=== PATIENT | female | born 1935 | race Caucasian/White ===

== ENCOUNTER 2018-06-11 16:29 | Emergency (ER) | payer MEDICARE, OTHER ==
--- NOTE | 2018-06-11 17:02 | ED Physician Chart ---
ED Chief Complaint/HPI - Patient Information Chief Complaint:: Abnormal labs, sent for high K. Allergies:: Allergies Allergy/AdvReac Type Severity Reaction Status Date / Time No Known Allergies Allergy Verified 06/11/18 16:41 Historian:: EMS (Patient is unreliable historian.), Medical Records Review:: Nurse's Note Reviewed <Taz Virk Last Filed: 06/12/18 20:18> - Patient Information Date Seen:: 06/11/18 Time Seen:: 17:01 Chief Complaint:: Abnormal labs History of Present Illness:: 83 yo female was brought from [facility] to ER for evaluation of abnormal lab result ( K 5.5). Allergies:: Allergies Allergy/AdvReac Type Severity Reaction Status Date / Time No Known Allergies Allergy Verified 06/11/18 16:41 Vitals:: Vital Signs - 8 hr 06/11/18 16:42 Temp 98.2 F HR 66 RR 18 BP 128/69 O2 Sat % 100 <Dash Vargas - Last Filed: 06/12/18 22:06> ED Review of Systems - Review of Systems General/Constitutional: No edema Skin: No skin lesions ENT: No nasal drainage Neck: No mass noted Cardio Vascular: No edema Pulmonary: No wheezing GI: No vomiting Psychiatric: Prior psych history Neurological: No seizure <Taz Virk Last Filed: 06/12/18 20:18> ED Past Medical History - Past Medical History Obtainable: Yes (Poor historian) Past Medical History: Other (hx of atrial fib) Family History: Heart disease Social History: Care Facility Psychiatricy History: Other (Aggression, past psychiatric illness) <Taz Virk Last Filed: 06/12/18 20:18> Family Medical History - Family Member Mother History Unknown: Yes <Taz Virk Last Filed: 06/12/18 20:18> - Family Member Mother History Unknown: Yes <Dash Vargas Last Filed: 06/12/18 22:06> ED Physical Exam - Physical Examination General/Constitutional: Awake Head: Atraumatic Eyes: Lids, conjuctiva normal Skin: Nl inspection ENMT: External ears, nose nl Neck: Nontender Respiratory: Nl effort/Exclusion Cardio Vascular: RRR : No CVA tenderness Extremities: No tenderness or effusion Misc: Normal back <Taz Virk - Last Filed: 06/12/18 20:18> ED Labs/Radiology/EKG Results - Lab Results Results: Laboratory Tests 06/11/18 06/11/18 06/11/18 18:00 18:00 18:00 WBC 8.3 RBC 3.41 L Hgb 10.6 L Hct 32.0 L MCV 93.8 MCH 31.1 H MCHC Differential 33.1 RDW 12.6 Plt Count 356 MPV 7.5 Neutrophils % 40.1 Lymphocytes % 45.8 Monocytes % 8.8 Eosinophils % 5.3 H Basophils % 0.0 PT INR PTT (Actin FS) Sodium 136 Potassium 4.8 Chloride 106 Carbon Dioxide 23.0 Anion Gap 11.8 BUN 32 H Creatinine 1.2 Est GFR ( Amer) TNP Est GFR (Non-Af Amer) TNP BUN/Creatinine Ratio 26.7 Glucose 83 Calcium 9.2 Total Bilirubin 0.4 AST 15 ALT 16 Alkaline Phosphatase 65 Troponin I B-Natriuretic Peptide 64.5 Total Protein 6.8 Albumin 3.8 Globulin 3.0 Albumin/Globulin Ratio 1.3 06/11/18 06/11/18 18:00 18:00 WBC RBC Hgb Hct MCV MCH MCHC Differential RDW Plt Count MPV Neutrophils % Lymphocytes % Monocytes % Eosinophils % Basophils % PT 23.7 H INR 2.19 H PTT (Actin FS) 33.4 Sodium Potassium Chloride Carbon Dioxide Anion Gap BUN Creatinine Est GFR ( Amer) Est GFR (Non-Af Amer) BUN/Creatinine Ratio Glucose Calcium Total Bilirubin AST ALT Alkaline Phosphatase Troponin I < 0.01 L B-Natriuretic Peptide Total Protein Albumin Globulin Albumin/Globulin Ratio <Taz Virk - Last Filed: 06/12/18 20:18> - EKG Interpretations EKG Time:: 17:15 Rate & Rhythm: 60 bpm, sinus rhythm [place]: normal axis Intervals: CO 144, QRS 98 Comments:: Normal EKG <Dash Vargas - Last Filed: 06/12/18 22:06> ED Assessment - Assessment General Assessment: Sent to ER for elevated K. Repeat BMP indicated K 4.8. Discussed case with PMD, agreed to return patient to skilled care facility. Notified patient's family of findings. This condition life threatening/high prob of deterioration: No <Taz Virk - Last Filed: 07/28/18 20:18> ED Septic Shock - . Is Septic Shock (SBP<90, OR Lactate>4 mmol\L) present?: No <Taz Virk - Last Filed: 06/12/18 20:18> - . Is Septic Shock (SBP<90, OR Lactate>4 mmol\L) present?: No - <6hrs of presentation: Vital Signs: Vital Signs - 8 hr 06/11/18 16:42 Temp 98.2 F HR 66 RR 18 BP 128/69 O2 Sat % 100 <Dash Vargas - Last Filed: 06/12/18 22:06> ED Reassessment (Disposition) - Reassessment Reassessment:: Electrolyte abnormality corrected. Reassessment Condition:: Improved - Diagnosis Diagnosis:: Elevated K, corrected. - Aftercare/Follow up Instructions Aftercare/Follow-Up Instructions:: Refer to Discharge Instructions, Counseled pt & family regarding lab results/diagnosis & need follow up - Patient Disposition Discharge/Transfer:: [facility] - SNF <Taz Virk - Last Filed: 06/12/18 20:18>
[2018-06-11 18:05] LABS: % EOSINOPHILS 5.3 % (0.0-5.0); % LYMPHOCYTES 45.8 % (20.0-50.0); % MONOCYTES 8.8 % (2.0-10.0); % NEUTROPHILS 40.1 % (40.0-80.0); EOSINOPHILE ABSOLUTE 0.4 Th/cmm (0.1-0.4); HEMOGLOBIN 10.6 gm/dL (12-16); LYMPHOCYTE ABSOLUTE 3.9 Th/cmm (1.5-3.0); MEAN CELL VOLUME 93.8 fl (81-100); MEAN CORPUSCULAR HEMOGLOBIN 31.1 pg (27.0-31.0); MEAN CORPUSCULAR HGB CONC 33.1 pg (28.0-36.0); MEAN PLATELET VOLUME 7.5 fl; MONOCYTE ABSOLUTE 0.7 Th/cmm (0.3-1.0); NEUTROPHILE ABSOLUTE 3.3 Th/cmm (1.8-8.0); PLATELET COUNT 356 Th/cmm (150-400); RED BLOOD COUNT 3.41 Mil/cmm (3.80-5.20); RED CELL DISTRIBUTION WIDTH 12.6 % (11.5-20.0); WHITE BLOOD COUNT 8.3 Th/cmm (4.8-10.8)
[2018-06-11 18:28] LABS: INR 2.19 (0.5-1.4); PROTHROMBIN TIME (TEST) 23.7 SECONDS (9.5-11.5)
[2018-06-11 18:38] LABS: ALB/GLOB RATIO 1.3 (1.0-1.8); ALBUMIN 3.8 gm/dL (3.7-5.3); ALKALINE PHOSPHATASE 65 U/L (34-104); ANION GAP 11.8 (7.0-16.0); BILIRUBIN,TOTAL 0.4 mg/dL (0.3-1.0); BUN - UREA NITROGEN 32 mg/dL (7-25); CALCIUM SERUM 9.2 mg/dL (8.6-10.3); CHLORIDE 106 mEq/L (98-107); CREATININE - SERUM 1.2 mg/dL (0.6-1.2); GLUCOSE 83 mg/dL (70-105); POTASSIUM SERUM 4.8 mEq/L (3.5-5.1); SGOT 15 U/L (13-39); SGPT/ALT 16 U/L (7-52); SODIUM SERUM 136 mEq/L (136-145); TOTAL PROTEIN,SERUM 6.8 gm/dL (6.0-8.3)
--- NOTE | 2018-06-12 09:27 | Diagnostic Imaging Report ---
Portable chest x-ray HISTORY: Shortness of breath The heart size appears generous. Atherosclerotic calcification seen in the aorta. No acute focal pulmonary processes. IMPRESSION: 1. No acute focal pulmonary processes 2. Generous heart size with atherosclerotic vascular changes
== END 2018-06-11 21:17 | disposition home or self-care (01) ==
LOC: ER 16:29
DX: E87.5 Hyperkalemia (principal); I48.91 Unspecified atrial fibrillation; Z79.01 Long term (current) use of anticoagulants
CPT/HCPCS: 36415-UA; 71045-TC; 80053-TC; 83880-TC; 84484-TC; 85025-TC; 85610-TC; 93005

== ENCOUNTER 2019-06-23 15:00 | Inpatient (IN) | payer MEDICARE, OTHER ==
[2019-06-23 16:11] VITALS: BP 150/44
[2019-06-23] MEDS ORDERED: Maalox 30 mL Cup PO PRN (16:31)
[2019-06-23] MEDS ORDERED: Magnesium Hydroxide (MOM) 30 mL UDC PO PRN (16:31)
[2019-06-23] MEDS ORDERED: CEPHALEXIN 250 MG PO SCH (18:00)
--- NOTE | 2019-06-23 18:15 | History & Physical ---
ADMIT DATE: CHIEF COMPLAINT: Psychosis. HISTORY OF PRESENT ILLNESS: The patient is an 84-year-old female with long history of hypertension, hypothyroidism, degenerative joint disease, psychosis, admitted to [facility] under Dr. Blas's service. The patient denies any chest pain, shortness of breath, nausea, vomiting, fever or chills. PAST MEDICAL HISTORY: Significant for hypertension, hypothyroidism, degenerative joint disease and psychosis. PAST SURGICAL HISTORY: No recent surgery. ALLERGIES: None. MEDICATIONS: Follow admission reconciliation. SOCIAL HISTORY: No smoking, no alcohol, no drug. FAMILY HISTORY: Noncontributory. REVIEW OF SYSTEMS: RENAL SYSTEM: No history of chronic renal disorder. CARDIOVASCULAR SYSTEM: No coronary artery disease. ENDOCRINE SYSTEM: History of hypothyroidism. GASTROINTESTINAL SYSTEM: No upper or lower GI bleed. NEUROLOGICAL SYSTEM: No seizure disorder. SKELETOMUSCULAR SYSTEM: No muscular dystrophy. HEMATOLOGIC SYSTEM: No bleeding tendencies. RESPIRATORY SYSTEM: No asthma. GENITOURINARY SYSTEM: No dysuria or hematuria. PHYSICAL EXAMINATION: GENERAL: She is awake, alert, confused. VITAL SIGNS: Temperature 97, heart rate 86, blood pressure 134/70. HEENT: Her pupils reactive to light and accommodation. Sclerae clear. NECK: Supple. Negative for lymphadenopathy, JVD or bruit. CHEST: Bilaterally normal. No rhonchi or wheezing. HEART: S1, S2 normal. No gallop rhythm. ABDOMEN: Soft, bowel sounds positive. EXTREMITIES: No edema. SKIN: Intact. NEUROLOGICAL: She is awake, alert, mildly confused. No focal muscle deficits. Cranial nerves 2-12 are intact. ASSESSMENT: 1. Hypertension. 2. Hypothyroidism. 3. Degenerative joint disease. 4. Psychosis. PLAN: The patient in the hospital under Dr. Blas's service. Medical problem addressed during hospitalization is psychosis. Medical problems to be addressed at discharge are hypertension and hypothyroidism. The patient is medically stable for activity. Thank you, Dr. Blas for asking me to see your patient. The patient is a full code. JOB# [id number]
[2019-06-24 05:45] LABS: ALB/GLOB RATIO 1.1 (1.0-1.8); ALBUMIN 3.4 gm/dL (3.7-5.3); ALKALINE PHOSPHATASE 43 U/L (34-104); ANION GAP 10.4 (7.0-16.0); BILIRUBIN,TOTAL 0.5 mg/dL (0.3-1.0); BUN - UREA NITROGEN 7 mg/dL (7-25); CARBON DIOXIDE 27.3 mEq/L (21.0-31.0); CHLORIDE 106 mEq/L (98-107); CREATININE - SERUM 0.8 mg/dL (0.6-1.2); GLUCOSE 90 mg/dL (70-105); POTASSIUM SERUM 3.7 mEq/L (3.5-5.1); SGOT 17 U/L (13-39); SGPT/ALT 15 U/L (7-52); SODIUM SERUM 140 mEq/L (136-145); TOTAL PROTEIN,SERUM 6.4 gm/dL (6.0-8.3)
[2019-06-24 05:50] LABS: % EOSINOPHILS 3.5 % (0.0-5.0); % LYMPHOCYTES 32.6 % (20.0-50.0); % MONOCYTES 6.9 % (2.0-10.0); BASOPHILE ABSOLUTE 0.2 Th/cumm (0-0.2); EOSINOPHILE ABSOLUTE 0.2 Th/cmm (0.1-0.4); HEMATOCRIT 33.9 % (41.0-60); HEMOGLOBIN 11.3 gm/dL (12-16); LYMPHOCYTE ABSOLUTE 2.2 Th/cmm (1.5-3.0); MEAN CORPUSCULAR HEMOGLOBIN 31.3 pg (27.0-31.0); MEAN CORPUSCULAR HGB CONC 33.3 pg (28.0-36.0); MONOCYTE ABSOLUTE 0.5 Th/cmm (0.3-1.0); NEUTROPHILE ABSOLUTE 3.8 Th/cmm (1.8-8.0); PLATELET COUNT 374 Th/cmm (150-400); RED CELL DISTRIBUTION WIDTH 12.6 % (11.5-20.0); WHITE BLOOD COUNT 6.9 Th/cmm (4.8-10.8)
[2019-06-24 06:01] LABS: CHOLESTEROL 117 mg/dL (<200); HDL -HIGH DENSITY LIPOPROTEIN 37 mg/dL (23-92); TRIGLYCERIDES 78 mg/dL (<150)
[2019-06-24] MEDS: Levothyroxine 0.075 Mg Tab PO SCH (06:36)
[2019-06-24] MEDS: Multivitamin Tab PO SCH (08:58)
[2019-06-24] MEDS: Pantoprazole 40 mg EC Tab PO SCH (08:59)
[2019-06-24] MEDS ORDERED: Probiotic Screen MC PRN (10:38)
--- NOTE | 2019-06-24 21:26 | Internal Medicine Prog Note ---
Internal Medicine Subjective - Subjective Service Date: 06/24/19 Patient seen and examined:: without staff Patient is:: awake, verbal, in bed, confused Per staff patient has:: no adverse event Internal Medicine Objective - Results Result Diagrams: 06/24/19 05:09 06/24/19 05:09 Recent Labs: Laboratory Last Values WBC 6.9 Th/cmm (4.8-10.8) 06/24/19 05:09 RBC 3.60 Mil/cmm (3.80-5.20) L 06/24/19 05:09 Hgb 11.3 gm/dL (12-16) L 06/24/19 05:09 Hct 33.9 % (41.0-60) L 06/24/19 05:09 MCV 94.0 fl (81-100) 06/24/19 05:09 MCH 31.3 pg (27.0-31.0) H 06/24/19 05:09 MCHC Differential 33.3 pg (28.0-36.0) 06/24/19 05:09 RDW 12.6 % (11.5-20.0) 06/24/19 05:09 Plt Count 374 Th/cmm (150-400) 06/24/19 05:09 MPV 7.8 fl 06/24/19 05:09 Neutrophils % 54.0 % (40.0-80.0) 06/24/19 05:09 Lymphocytes % 32.6 % (20.0-50.0) 06/24/19 05:09 Monocytes % 6.9 % (2.0-10.0) 06/24/19 05:09 Eosinophils % 3.5 % (0.0-5.0) 06/24/19 05:09 Basophils % 3.0 % (0.0-2.0) H 06/24/19 05:09 Sodium 140 mEq/L (136-145) 06/24/19 05:09 Potassium 3.7 mEq/L (3.5-5.1) 06/24/19 05:09 Chloride 106 mEq/L (98-107) 06/24/19 05:09 Carbon Dioxide 27.3 mEq/L (21.0-31.0) 06/24/19 05:09 Anion Gap 10.4 (7.0-16.0) 06/24/19 05:09 BUN 7 mg/dL (7-25) 06/24/19 05:09 Creatinine 0.8 mg/dL (0.6-1.2) 06/24/19 05:09 Est GFR ( Amer) TNP 06/24/19 05:09 Est GFR (Non-Af Amer) TNP 06/24/19 05:09 BUN/Creatinine Ratio 8.8 06/24/19 05:09 Glucose 90 mg/dL (70-105) 06/24/19 05:09 Calcium 9.0 mg/dL (8.6-10.3) 06/24/19 05:09 Total Bilirubin 0.5 mg/dL (0.3-1.0) 06/24/19 05:09 AST 17 U/L (13-39) 06/24/19 05:09 ALT 15 U/L (7-52) 06/24/19 05:09 Alkaline Phosphatase 43 U/L (34-104) 06/24/19 05:09 Total Protein 6.4 gm/dL (6.0-8.3) 06/24/19 05:09 Albumin 3.4 gm/dL (3.7-5.3) L 06/24/19 05:09 Globulin 3.0 gm/dL 06/24/19 05:09 Albumin/Globulin Ratio 1.1 (1.0-1.8) 06/24/19 05:09 Triglycerides 78 mg/dL (<150) 06/24/19 05:09 Cholesterol 117 mg/dL (<200) 06/24/19 05:09 LDL Cholesterol Direct 67 mg/dL (75-193) L 06/24/19 05:09 HDL Cholesterol 37 mg/dL (23-92) 06/24/19 05:09 - Physical Exam Vitals and I&O: Vital Signs Temp 97 F 06/24/19 20:00 Pulse 80 06/24/19 20:00 Resp 18 06/24/19 20:00 BP 129/66 06/24/19 20:00 Pulse Ox 96 06/24/19 20:00 Intake & Output 06/24/19 06/24/19 06/25/19 06:59 18:59 06:59 Intake Total 200 1150 Balance 200 1150 Intake: Oral 200 1150 Other: # Voids 1 Active Medications: Current Medications Acetaminophen (Tylenol) 650 mg PO Q4HR PRN PRN Reason: Mild Pain / Temp above 100 Stop: 08/22/19 16:30 Al Hydrox/Mg Hydrox/Simethicone (Maalox) 30 ml PO Q4HR PRN PRN Reason: GI DISTRESS Stop: 08/22/19 16:30 Amlodipine Besylate (Norvasc) 5 mg PO DAILY [facility]ISHA Stop: 08/23/19 08:59 Last Admin: 06/24/19 08:58 Dose: 5 mg Cephalexin Monohydrate (Keflex) 250 mg PO Q6HR MISHA Stop: 07/01/19 00:00 Last Admin: 06/24/19 18:50 Dose: 250 mg Donepezil HCl (Aricept) 5 mg PO HS MISHA Stop: 08/22/19 20:59 Last Admin: 06/24/19 20:37 Dose: 5 mg Lactobacillus Rhamnosus (Culturelle 15b) 1 each PO DAILY [facility] Stop: 08/24/19 08:59 Levothyroxine Sodium (Synthroid) 0.075 mg PO 0700 [facility] Stop: 08/23/19 06:59 Last Admin: 06/24/19 06:36 Dose: 0.075 mg Lorazepam (Ativan) 0.5 mg PO Q4HR PRN; Protocol PRN Reason: Agitation Stop: 07/23/19 16:30 Magnesium Hydroxide (Milk Of Magnesia) 30 ml PO HS PRN PRN Reason: Constipation Miscellaneous (Probiotic Screen) 1 ea [facility] PRN PRN PRN Reason: PROTOCOL Stop: 08/23/19 10:37 Multivitamins/Vitamin C (Theragran) 1 tab PO DAILY [facility] Stop: 08/23/19 08:59 Last Admin: 06/24/19 08:58 Dose: 1 tab Pantoprazole Sodium (Protonix) 40 mg PO QAM [facility]IS[facility] Stop: 08/23/19 08:59 Last Admin: 06/24/19 08:59 Dose: 40 mg Quetiapine Fumarate (Seroquel) 25 mg PO BID MISHA; Protocol Stop: 08/23/19 08:59 Last Admin: 06/24/19 17:07 Dose: 25 mg Zolpidem Tartrate (Ambien) 5 mg PO HS PRN PRN Reason: Insomnia Stop: 10/07/19 16:30 General: demented HEENT: NC/AT, PERRLA, EOMI, anicteric sclerae, throat clear Neck: Supple, No JVD, No thyromegaly, +2 carotid pulse wo bruit, No LAD, + JVD Lungs: CTAB Cardiovascular: RRR, Normal S1, Normal S2, without murmur Abdomen: non-tender, non-distended Extremities: clear Neurological: no change - Procedures Procedures: Procedures Procedure Code Date OTHER GROUP THERAPY 94.44 04/02/12 RECREATIONAL THERAPY 93.81 04/02/12 Internal Medicine Assmt/Plan - Assessment Assessment: 1.HTN. 2.HYPOTHYROIDISM 3.DJD. 4.PSYCHOSIS - Plan Plan: CONTINUE ON CURRENT MEDICATION AND DIET
[2019-06-25] MEDS: Levothyroxine 0.075 Mg Tab PO SCH (06:36)
[2019-06-25 08:10] LABS: A1C 4.5 % (4.8-5.6)
[2019-06-25] MEDS: Lactobacillus Rhamnosus GG 15 Billion CFU CAP.SPRINK PO SCH (10:09)
[2019-06-25] MEDS: Pantoprazole 40 mg EC Tab PO SCH (10:09)
[2019-06-25] MEDS: Multivitamin Tab PO SCH (10:09)
--- NOTE | 2019-06-25 10:10 | Psychiatric Evaluation ---
DATE OF SERVICE: 06/25/2019 PSYCHIATRIC INITIAL EVALUATION AND MENTAL STATUS EXAMINATION PATIENT'S AGE: 84. SEX: Female. PHYSICIAN: Dr. Blas. CHIEF COMPLAINT: Severe agitation and aggressive behavior. HISTORY OF PRESENT ILLNESS: The patient is an 84-year-old female who was transferred from [facility] to [facility] because of increased agitation and because of bizarre behavior. The patient also has been confused. The patient had also altered level of conscious for about 1-1/2 weeks prior to this admission. The patient has been acting bizarre and has been pouring water on foods and also spitting and biting people for no reason. The family has also been unable to control her behavior and her strange behavior and the patient was brought into the hospital. While in [facility], the patient was found to be dehydrated and also has urinary tract infection. The patient also while in [place] was irritable and was agitated. She also was not able to follow directions. Neuro consult on that the patient has dementia as well as encephalopathy and left hemiplegia with status of previous stroke. PAST PSYCHIATRIC HISTORY: The patient has history of dementia. PAST MEDICAL HISTORY: The patient has history of stroke as well as hypothyroidism, hypertension, left side hemiplegia and urinary tract infection. SOCIAL HISTORY: The patient was living at her home. No known alcohol or street drug use. ALLERGIES: No known allergies. CURRENT MEDICATIONS: Seroquel. MENTAL STATUS EXAMINATION: The patient appears her stated age. Anxious. Irritable mood. Easily agitated. Confused. Seems to be suspicious and paranoid. Thought processes are with poverty of speech and incoherent. The patient preoccupied and did not answer question regarding auditory or visual hallucinations, but seems to be paranoid and suspicious. The patient denied suicidal or homicidal ideations. The patient is alert and oriented to situation, but not to date or person or place. Impaired immediate and recent memory, but intact remote memory and she remembered her date. Poor insight and poor judgment. ASSESSMENT: PRIMARY DIAGNOSIS: Unspecified psychosis. SECONDARY DIAGNOSES: Dementia, moderate to severe, with psychotic features and behavioral disturbances. MEDICAL DIAGNOSES: Hypothyroidism, status post stroke with left-sided hemiplegia. TREATMENT PLAN: We will monitor the patient's behavior closely. We will adjust psychotropic medications and the dose of Seroquel. We will evaluate for further recommendations and behavioral issues. ESTIMATED LENGTH OF STAY: 5-7 days. PATIENT'S STRENGTHS AND WEAKNESSES: The patient's strength is not clear at this time. Weaknesses are ineffective coping and poor impulse control and confusion. AFTER DISCHARGE PLAN: Outpatient treatment and followup and the patient might need placement in detention for dementia patients. CRITERIA FOR DISCHARGE: Better impulse control and stabilizing psychotropic medications and establish outpatient treatment plans. [facility]# [id number]
--- NOTE | 2019-06-25 18:17 | Progress Notes ---
DATE: 06/25/2019 SUBJECTIVE: Chart was reviewed and the patient interviewed. Also discussed this patient's condition with the staff and reviewed records and labs. The patient is complaining of "can't swallow." The patient also said that she had a denture, but it does not fit. She also is still in irritable and angry mood at times and is easily agitated. She also still seems to be suspicious and paranoid. Otherwise, the patient is compliant with taking medications with no side effects of medications. ASSESSMENT: The patient is still agitated and is still psychotic and needs close monitoring. TREATMENT PLAN: Continue Seroquel same dose. Also, continue working on behavioral modification. Also, the patient is taking soft diet. Continue same dose and continue to follow up closely. [facility]# [id number]
--- NOTE | 2019-06-25 20:30 | Internal Medicine Prog Note ---
Internal Medicine Subjective - Subjective Service Date: 06/25/19 Patient seen and examined:: without staff (HE IS DOING BETTER) Patient is:: awake, verbal, in bed, confused Per staff patient has:: no adverse event Internal Medicine Objective - Results Result Diagrams: 06/24/19 05:09 06/24/19 05:09 Recent Labs: Laboratory Last Values WBC 6.9 Th/cmm (4.8-10.8) 06/24/19 05:09 RBC 3.60 Mil/cmm (3.80-5.20) L 06/24/19 05:09 Hgb 11.3 gm/dL (12-16) L 06/24/19 05:09 Hct 33.9 % (41.0-60) L 06/24/19 05:09 MCV 94.0 fl (81-100) 06/24/19 05:09 MCH 31.3 pg (27.0-31.0) H 06/24/19 05:09 MCHC Differential 33.3 pg (28.0-36.0) 06/24/19 05:09 RDW 12.6 % (11.5-20.0) 06/24/19 05:09 Plt Count 374 Th/cmm (150-400) 06/24/19 05:09 MPV 7.8 fl 06/24/19 05:09 Neutrophils % 54.0 % (40.0-80.0) 06/24/19 05:09 Lymphocytes % 32.6 % (20.0-50.0) 06/24/19 05:09 Monocytes % 6.9 % (2.0-10.0) 06/24/19 05:09 Eosinophils % 3.5 % (0.0-5.0) 06/24/19 05:09 Basophils % 3.0 % (0.0-2.0) H 06/24/19 05:09 Sodium 140 mEq/L (136-145) 06/24/19 05:09 Potassium 3.7 mEq/L (3.5-5.1) 06/24/19 05:09 Chloride 106 mEq/L (98-107) 06/24/19 05:09 Carbon Dioxide 27.3 mEq/L (21.0-31.0) 06/24/19 05:09 Anion Gap 10.4 (7.0-16.0) 06/24/19 05:09 BUN 7 mg/dL (7-25) 06/24/19 05:09 Creatinine 0.8 mg/dL (0.6-1.2) 06/24/19 05:09 Est GFR ( Amer) TNP 06/24/19 05:09 Est GFR (Non-Af Amer) TNP 06/24/19 05:09 BUN/Creatinine Ratio 8.8 06/24/19 05:09 Glucose 90 mg/dL (70-105) 06/24/19 05:09 Calcium 9.0 mg/dL (8.6-10.3) 06/24/19 05:09 Total Bilirubin 0.5 mg/dL (0.3-1.0) 06/24/19 05:09 AST 17 U/L (13-39) 06/24/19 05:09 ALT 15 U/L (7-52) 06/24/19 05:09 Alkaline Phosphatase 43 U/L (34-104) 06/24/19 05:09 Total Protein 6.4 gm/dL (6.0-8.3) 06/24/19 05:09 Albumin 3.4 gm/dL (3.7-5.3) L 06/24/19 05:09 Globulin 3.0 gm/dL 06/24/19 05:09 Albumin/Globulin Ratio 1.1 (1.0-1.8) 06/24/19 05:09 Triglycerides 78 mg/dL (<150) 06/24/19 05:09 Cholesterol 117 mg/dL (<200) 06/24/19 05:09 LDL Cholesterol Direct 67 mg/dL (75-193) L 06/24/19 05:09 HDL Cholesterol 37 mg/dL (23-92) 06/24/19 05:09 - Physical Exam Vitals and I&O: Vital Signs Temp 98.0 F 06/25/19 20:10 Pulse 108 06/25/19 20:10 Resp 19 06/25/19 20:10 BP 127/63 06/25/19 20:10 Pulse Ox 98 06/25/19 20:10 Intake & Output 06/25/19 06/25/19 06/26/19 06:59 18:59 06:59 Intake Total 100 1200 240 Balance 100 1200 240 Intake: Oral 100 1200 240 Other: # Voids 1 4 2 # Bowel Movements 1 Active Medications: Current Medications Acetaminophen (Tylenol) 650 mg PO Q4HR PRN PRN Reason: Mild Pain / Temp above 100 Stop: 08/22/19 16:30 Al Hydrox/Mg Hydrox/Simethicone (Maalox) 30 ml PO Q4HR PRN PRN Reason: GI DISTRESS Stop: 08/22/19 16:30 Amlodipine Besylate (Norvasc) 5 mg PO DAILY [facility] Stop: 08/23/19 08:59 Last Admin: 06/25/19 10:08 Dose: 5 mg Cephalexin Monohydrate (Keflex) 250 mg PO Q6HR [facility] Stop: 07/01/19 00:00 Last Admin: 06/25/19 17:23 Dose: Not Given Donepezil HCl (Aricept) 5 mg PO HS [facility] Stop: 08/22/19 20:59 Last Admin: 06/24/19 20:37 Dose: 5 mg Lactobacillus Rhamnosus (Culturelle 15b) 1 each PO DAILY [facility] Stop: 08/24/19 08:59 Last Admin: 06/25/19 10:09 Dose: 1 each Levothyroxine Sodium (Synthroid) 0.075 mg PO 0700 [facility] Stop: 08/23/19 06:59 Last Admin: 06/25/19 06:36 Dose: 0.075 mg Lorazepam (Ativan) 0.5 mg PO Q4HR PRN; Protocol PRN Reason: Agitation Stop: 07/23/19 16:30 Magnesium Hydroxide (Milk Of Magnesia) 30 ml PO HS PRN PRN Reason: Constipation Miscellaneous (Probiotic Screen) 1 ea MC PRN PRN PRN Reason: PROTOCOL Stop: 08/23/19 10:37 Multivitamins/Vitamin C (Theragran) 1 tab PO DAILY [facility] Stop: 08/23/19 08:59 Last Admin: 06/25/19 10:09 Dose: 1 tab Pantoprazole Sodium (Protonix) 40 mg PO QAM [facility] Stop: 08/23/19 08:59 Last Admin: 06/25/19 10:09 Dose: 40 mg Quetiapine Fumarate (Seroquel) 25 mg PO BID MISHA; Protocol Stop: 08/23/19 08:59 Last Admin: 06/25/19 17:23 Dose: Not Given Zolpidem Tartrate (Ambien) 5 mg PO HS PRN PRN Reason: Insomnia Stop: 08/22/19 16:30 General: demented HEENT: NC/AT, PERRLA, EOMI, anicteric sclerae, throat clear Neck: Supple, No JVD, No thyromegaly, +2 carotid pulse wo bruit, No LAD, + JVD Lungs: CTAB Cardiovascular: RRR, Normal S1, Normal S2, without murmur Abdomen: non-tender, non-distended Extremities: clear Neurological: no change - Procedures Procedures: Procedures Procedure Code Date OTHER GROUP THERAPY 94.44 04/02/12 RECREATIONAL THERAPY 93.81 04/02/12 Internal Medicine Assmt/Plan - Assessment Assessment: 1.HTN. 2.HYPOTHYROIDISM 3.DJD. 4.PSYCHOSIS - Plan Plan: CONTINUE ON CURRENT MEDICATION AND DIET Nutritional Asmnt/Malnutr-PDOC - Dietary Evaluation Malnutrition Findings (Please click <Entered> for more info): Nutritional Asmnt/Malnutrition Start: 06/25/19 10: 43 Text: Status: Active Freq: Protocol: Document 06/25/19 10:43 POLINA (Rec: 06/25/19 10:50 MMMICKIE AMIE- [email or web address]) Nutritional Asmnt/Malnutrition Patient General Information Nutritional Screening Moderate Risk Diagnosis Psychosis NOS Pertinent Medical Hx/Surgical Hx HTN, Hypothyroidism, degenerative joint disease, psychosis Subjective Information Patient was admitted from [facility]. Patient in bed eating lunch at time of visit . Tolerating well. Current Diet Order/ Nutrition Support Pureed Cardiac Pertinent Medications maalox, Culturelle, synthroid, MOM, Theragran, Protonix Pertinent Labs (06/24) Albumin 3.4 Nutritional Hx/Data Height 1.68 m Height (Calculated Centimeters) 167.6 Current Weight (lbs) 57.606 kg Weight (Calculated Kilograms) 57.6 Weight (Calculated Grams) 14018.2 [place] Body Weight 130 % [place] Body Weight 97 Body Mass Index (BMI) 20.5 Recent Weight Change No Weight Status Approriate GI Symptoms GI Symptoms None Last BM none noted Difficult in: None Food Allergies No Cultural/Ethnic/Restoration Belief none indicated Usual diet at home unknown Skin Integrity/Comment: Bhavin 15, Intact Current %PO Good (75-100%) Estimated Nutritional Goals BEE in Kcals: Using Current wt Calories/Kcals/Kg 25-30 kcal/kg using CBW 57.7kg Kcals Calculated ~7772-4307 kcal/day Protein: Using Current wt Protein g/k-1.2 gm/kg Protein Calculated ~60-70 gm/day Fluid: ml ~0428-6355 ml/day (1 ml/kcal) Nutritional Problem 1. Problem Problem No nutrition diagnosis at this time Intervention/Recommendation Comments Continue pureed cardiac diet as tolerated by patient. Assist with meals as needed. Expected Outcomes/Goals Expected Outcomes/Goals Oral intake >75% ofmeals, weight stable, nutrition related labs WNL, skin intact F/U LR 07/02
[2019-06-26] MEDS: Levothyroxine 0.075 Mg Tab PO SCH (06:24)
--- NOTE | 2019-06-26 08:38 | Progress Notes ---
DATE: 06/26/2019 SUBJECTIVE: Chart was reviewed and the patient interviewed. Also discussed the patient's condition with the staff and reviewed records and labs. The patient still has poor appetite and she is still on soft diet because of difficulty swallowing. The patient also is still angry and she is still in irritable mood and has severe mood swings. She also still needs a lot of redirections. Otherwise, the patient continued to comply with taking her medications. The patient is aggressive, especially during helping her with her ADLs. ASSESSMENT: The patient is still agitated and needs close monitoring. TREATMENT PLAN: Continue to monitor behavior and condition closely. Also, continue to work on her ineffective coping and follow up closely. [facility]# [id number]
[2019-06-26] MEDS: Multivitamin Tab PO SCH (08:58)
[2019-06-26] MEDS: Pantoprazole 40 mg EC Tab PO SCH (08:58)
[2019-06-26] MEDS: Lactobacillus Rhamnosus GG 15 Billion CFU CAP.SPRINK PO SCH (08:58)
--- NOTE | 2019-06-26 19:56 | Internal Medicine Prog Note ---
Internal Medicine Subjective - Subjective Service Date: 06/26/19 Patient seen and examined:: without staff (HE IS DOING WELL) Patient is:: awake, verbal, in bed, confused Per staff patient has:: no adverse event Internal Medicine Objective - Results Result Diagrams: 06/24/19 05:09 06/24/19 05:09 Recent Labs: Laboratory Last Values WBC 6.9 Th/cmm (4.8-10.8) 06/24/19 05:09 RBC 3.60 Mil/cmm (3.80-5.20) L 06/24/19 05:09 Hgb 11.3 gm/dL (12-16) L 06/24/19 05:09 Hct 33.9 % (41.0-60) L 06/24/19 05:09 MCV 94.0 fl (81-100) 06/24/19 05:09 MCH 31.3 pg (27.0-31.0) H 06/24/19 05:09 MCHC Differential 33.3 pg (28.0-36.0) 06/24/19 05:09 RDW 12.6 % (11.5-20.0) 06/24/19 05:09 Plt Count 374 Th/cmm (150-400) 06/24/19 05:09 MPV 7.8 fl 06/24/19 05:09 Neutrophils % 54.0 % (40.0-80.0) 06/24/19 05:09 Lymphocytes % 32.6 % (20.0-50.0) 06/24/19 05:09 Monocytes % 6.9 % (2.0-10.0) 06/24/19 05:09 Eosinophils % 3.5 % (0.0-5.0) 06/24/19 05:09 Basophils % 3.0 % (0.0-2.0) H 06/24/19 05:09 Sodium 140 mEq/L (136-145) 06/24/19 05:09 Potassium 3.7 mEq/L (3.5-5.1) 06/24/19 05:09 Chloride 106 mEq/L (98-107) 06/24/19 05:09 Carbon Dioxide 27.3 mEq/L (21.0-31.0) 06/24/19 05:09 Anion Gap 10.4 (7.0-16.0) 06/24/19 05:09 BUN 7 mg/dL (7-25) 06/24/19 05:09 Creatinine 0.8 mg/dL (0.6-1.2) 06/24/19 05:09 Est GFR ( Amer) TNP 06/24/19 05:09 Est GFR (Non-Af Amer) TNP 06/24/19 05:09 BUN/Creatinine Ratio 8.8 06/24/19 05:09 Glucose 90 mg/dL (70-105) 06/24/19 05:09 Calcium 9.0 mg/dL (8.6-10.3) 06/24/19 05:09 Total Bilirubin 0.5 mg/dL (0.3-1.0) 06/24/19 05:09 AST 17 U/L (13-39) 06/24/19 05:09 ALT 15 U/L (7-52) 06/24/19 05:09 Alkaline Phosphatase 43 U/L (34-104) 06/24/19 05:09 Total Protein 6.4 gm/dL (6.0-8.3) 06/24/19 05:09 Albumin 3.4 gm/dL (3.7-5.3) L 06/24/19 05:09 Globulin 3.0 gm/dL 06/24/19 05:09 Albumin/Globulin Ratio 1.1 (1.0-1.8) 06/24/19 05:09 Triglycerides 78 mg/dL (<150) 06/24/19 05:09 Cholesterol 117 mg/dL (<200) 06/24/19 05:09 LDL Cholesterol Direct 67 mg/dL (75-193) L 06/24/19 05:09 HDL Cholesterol 37 mg/dL (23-92) 06/24/19 05:09 - Physical Exam Vitals and I&O: Vital Signs Temp 97.6 F 06/26/19 13:50 Pulse 97 06/26/19 13:50 Resp 19 06/26/19 13:50 BP 121/62 06/26/19 13:50 Pulse Ox 90 06/26/19 04:56 Intake & Output 06/26/19 06/26/19 06/27/19 06:59 18:59 06:59 Intake Total 480 Balance 480 Intake: Oral 480 Other: # Voids 2 Active Medications: Current Medications Acetaminophen (Tylenol) 650 mg PO Q4HR PRN PRN Reason: Mild Pain / Temp above 100 Stop: 08/22/19 16:30 Al Hydrox/Mg Hydrox/Simethicone (Maalox) 30 ml PO Q4HR PRN PRN Reason: GI DISTRESS Stop: 08/22/19 16:30 Amlodipine Besylate (Norvasc) 5 mg PO DAILY MISHA Stop: 08/23/19 08:59 Last Admin: 06/26/19 08:57 Dose: 5 mg Cephalexin Monohydrate (Keflex) 250 mg PO Q6HR MISHA Stop: 07/01/19 00:00 Last Admin: 06/26/19 17:21 Dose: 250 mg Donepezil HCl (Aricept) 5 mg PO HS MSIHA Stop: 08/22/19 20:59 Last Admin: 06/25/19 21:13 Dose: Not Given Lactobacillus Rhamnosus (Culturelle 15b) 1 each PO DAILY MISHA Stop: 08/24/19 08:59 Last Admin: 06/26/19 08:58 Dose: 1 each Levothyroxine Sodium (Synthroid) 0.075 mg PO 0700 MISHA Stop: 08/23/19 06:59 Last Admin: 06/26/19 06:24 Dose: 0.075 mg Lorazepam (Ativan) 0.5 mg PO Q4HR PRN; Protocol PRN Reason: Agitation Stop: 07/23/19 16:30 Magnesium Hydroxide (Milk Of Magnesia) 30 ml PO HS PRN PRN Reason: Constipation Miscellaneous (Probiotic Screen) 1 ea MC PRN PRN PRN Reason: PROTOCOL Stop: 08/23/19 10:37 Multivitamins/Vitamin C (Theragran) 1 tab PO DAILY MISHA Stop: 08/23/19 08:59 Last Admin: 06/26/19 08:58 Dose: 1 tab Pantoprazole Sodium (Protonix) 40 mg PO QAM MISHA Stop: 08/23/19 08:59 Last Admin: 06/26/19 08:58 Dose: 40 mg Quetiapine Fumarate (Seroquel) 25 mg PO BID MISHA; Protocol Stop: 08/23/19 08:59 Last Admin: 06/26/19 16:44 Dose: 25 mg Zolpidem Tartrate (Ambien) 5 mg PO HS PRN PRN Reason: Insomnia Stop: 08/22/19 16:30 Last Admin: 06/26/19 00:16 Dose: 5 mg General: demented HEENT: NC/AT, PERRLA, EOMI, anicteric sclerae, throat clear Neck: Supple, No JVD, No thyromegaly, +2 carotid pulse wo bruit, No LAD, + JVD Lungs: CTAB Cardiovascular: RRR, Normal S1, Normal S2, without murmur Abdomen: non-tender, non-distended Extremities: clear Neurological: no change - Procedures Procedures: Procedures Procedure Code Date OTHER GROUP THERAPY 94.44 04/02/12 RECREATIONAL THERAPY 93.81 04/02/12 Internal Medicine Assmt/Plan - Assessment Assessment: 1.HTN. 2.HYPOTHYROIDISM 3.DJD. 4.PSYCHOSIS - Plan Plan: CONTINUE ON CURRENT MEDICATION AND DIET Nutritional Asmnt/Malnutr-PDOC - Dietary Evaluation Malnutrition Findings (Please click <Entered> for more info): Nutritional Asmnt/Malnutrition Start: 06/25/19 10: 43 Text: Status: Active Freq: Protocol: Document 06/25/19 10:43 POLINA (Rec: 06/25/19 10:50 MMMICKIE AMIE- FNS1) Nutritional Asmnt/Malnutrition Patient General Information Nutritional Screening Moderate Risk Diagnosis Psychosis NOS Pertinent Medical Hx/Surgical Hx HTN, Hypothyroidism, degenerative joint disease, psychosis Subjective Information Patient was admitted from [facility]. Patient in bed eating lunch at time of visit . Tolerating well. Current Diet Order/ Nutrition Support Pureed Cardiac Pertinent Medications maalox, Culturelle, synthroid, MOM, Theragran, Protonix Pertinent Labs (06/24) Albumin 3.4 Nutritional Hx/Data Height 1.68 m Height (Calculated Centimeters) 167.6 Current Weight (lbs) 57.606 kg Weight (Calculated Kilograms) 57.6 Weight (Calculated Grams) 79044.2 [place] Body Weight 130 % [place] Body Weight 97 Body Mass Index (BMI) 20.5 Recent Weight Change No Weight Status Approriate GI Symptoms GI Symptoms None Last BM none noted Difficult in: None Food Allergies No Cultural/Ethnic/Spiritism Belief none indicated Usual diet at home unknown Skin Integrity/Comment: Bhavin 15, Intact Current %PO Good (75-100%) Estimated Nutritional Goals BEE in Kcals: Using Current wt Calories/Kcals/Kg 25-30 kcal/kg using CBW 57.7kg Kcals Calculated ~3279-3624 kcal/day Protein: Using Current wt Protein g/k-1.2 gm/kg Protein Calculated ~60-70 gm/day Fluid: ml ~5976-5409 ml/day (1 ml/kcal) Nutritional Problem 1. Problem Problem No nutrition diagnosis at this time Intervention/Recommendation Comments Continue pureed cardiac diet as tolerated by patient. Assist with meals as needed. Expected Outcomes/Goals Expected Outcomes/Goals Oral intake >75% ofmeals, weight stable, nutrition related labs WNL, skin intact F/U LR 07/02
[2019-06-27] MEDS: Levothyroxine 0.075 Mg Tab PO SCH (06:53)
[2019-06-27] MEDS: Lactobacillus Rhamnosus GG 15 Billion CFU CAP.SPRINK PO SCH (08:13)
[2019-06-27] MEDS: Pantoprazole 40 mg EC Tab PO SCH (08:13)
[2019-06-27] MEDS: Multivitamin Tab PO SCH (08:14)
[2019-06-27] MEDS: risperiDONE 1 mg/mL 30 mL Bottle PO SCH ×2 (08:20→16:29)
--- NOTE | 2019-06-27 18:19 | Progress Notes ---
DATE: 06/27/2019 SUBJECTIVE: Chart was reviewed and the patient interviewed. Also discussed the patient's condition with the staff and reviewed records and labs. The patient is still angry and is still in irritable mood. The patient also is still easily agitated and easily irritable with severe mood swings. The patient also is suspicious and is paranoid. She still needs redirections. The patient also is easily irritable and agitated. ASSESSMENT: The patient is still agitated and is still irritable. TREATMENT PLAN: We will continue monitoring her behavior and her condition. Also, we will continue to work on her agitation and psychotropic medications. Also, working on discharge plans and placement issue. JOB# [id number]
--- NOTE | 2019-06-27 19:49 | Internal Medicine Prog Note ---
Internal Medicine Subjective - Subjective Service Date: 06/27/19 Patient seen and examined:: without staff (HE IS DOING BETTER) Patient is:: awake, verbal, in bed, confused Per staff patient has:: no adverse event Internal Medicine Objective - Results Result Diagrams: 06/24/19 05:09 06/24/19 05:09 Recent Labs: Laboratory Last Values WBC 6.9 Th/cmm (4.8-10.8) 06/24/19 05:09 RBC 3.60 Mil/cmm (3.80-5.20) L 06/24/19 05:09 Hgb 11.3 gm/dL (12-16) L 06/24/19 05:09 Hct 33.9 % (41.0-60) L 06/24/19 05:09 MCV 94.0 fl (81-100) 06/24/19 05:09 MCH 31.3 pg (27.0-31.0) H 06/24/19 05:09 MCHC Differential 33.3 pg (28.0-36.0) 06/24/19 05:09 RDW 12.6 % (11.5-20.0) 06/24/19 05:09 Plt Count 374 Th/cmm (150-400) 06/24/19 05:09 MPV 7.8 fl 06/24/19 05:09 Neutrophils % 54.0 % (40.0-80.0) 06/24/19 05:09 Lymphocytes % 32.6 % (20.0-50.0) 06/24/19 05:09 Monocytes % 6.9 % (2.0-10.0) 06/24/19 05:09 Eosinophils % 3.5 % (0.0-5.0) 06/24/19 05:09 Basophils % 3.0 % (0.0-2.0) H 06/24/19 05:09 Sodium 140 mEq/L (136-145) 06/24/19 05:09 Potassium 3.7 mEq/L (3.5-5.1) 06/24/19 05:09 Chloride 106 mEq/L (98-107) 06/24/19 05:09 Carbon Dioxide 27.3 mEq/L (21.0-31.0) 06/24/19 05:09 Anion Gap 10.4 (7.0-16.0) 06/24/19 05:09 BUN 7 mg/dL (7-25) 06/24/19 05:09 Creatinine 0.8 mg/dL (0.6-1.2) 06/24/19 05:09 Est GFR ( Amer) TNP 06/24/19 05:09 Est GFR (Non-Af Amer) TNP 06/24/19 05:09 BUN/Creatinine Ratio 8.8 06/24/19 05:09 Glucose 90 mg/dL (70-105) 06/24/19 05:09 Calcium 9.0 mg/dL (8.6-10.3) 06/24/19 05:09 Total Bilirubin 0.5 mg/dL (0.3-1.0) 06/24/19 05:09 AST 17 U/L (13-39) 06/24/19 05:09 ALT 15 U/L (7-52) 06/24/19 05:09 Alkaline Phosphatase 43 U/L (34-104) 06/24/19 05:09 Total Protein 6.4 gm/dL (6.0-8.3) 06/24/19 05:09 Albumin 3.4 gm/dL (3.7-5.3) L 06/24/19 05:09 Globulin 3.0 gm/dL 06/24/19 05:09 Albumin/Globulin Ratio 1.1 (1.0-1.8) 06/24/19 05:09 Triglycerides 78 mg/dL (<150) 06/24/19 05:09 Cholesterol 117 mg/dL (<200) 06/24/19 05:09 LDL Cholesterol Direct 67 mg/dL (75-193) L 06/24/19 05:09 HDL Cholesterol 37 mg/dL (23-92) 06/24/19 05:09 - Physical Exam Vitals and I&O: Vital Signs Temp 97.9 F 06/27/19 13:57 Pulse 67 06/27/19 13:57 Resp 18 06/27/19 13:57 BP 162/89 06/27/19 13:57 Pulse Ox 98 06/27/19 13:57 Intake & Output 06/27/19 06/27/19 06/28/19 06:59 18:59 06:59 Intake Total 480 Balance 480 Intake: Oral 480 Other: # Voids 2 Active Medications: Current Medications Acetaminophen (Tylenol) 650 mg PO Q4HR PRN PRN Reason: Mild Pain / Temp above 100 Stop: 08/22/19 16:30 Al Hydrox/Mg Hydrox/Simethicone (Maalox) 30 ml PO Q4HR PRN PRN Reason: GI DISTRESS Stop: 08/22/19 16:30 Amlodipine Besylate (Norvasc) 5 mg PO DAILY MISHA Stop: 08/23/19 08:59 Last Admin: 06/27/19 08:13 Dose: 5 mg Cephalexin Monohydrate (Keflex) 250 mg PO Q6HR MISHA Stop: 07/01/19 00:00 Last Admin: 06/27/19 17:08 Dose: 250 mg Donepezil HCl (Aricept) 5 mg PO HS MISHA Stop: 08/22/19 20:59 Last Admin: 06/26/19 21:22 Dose: 5 mg Lactobacillus Rhamnosus (Culturelle 15b) 1 each PO DAILY MISHA Stop: 08/24/19 08:59 Last Admin: 06/27/19 08:13 Dose: 1 each Levothyroxine Sodium (Synthroid) 0.075 mg PO 0700 MISHA Stop: 08/23/19 06:59 Last Admin: 06/27/19 06:53 Dose: 0.075 mg Lorazepam (Ativan) 0.5 mg PO Q4HR PRN; Protocol PRN Reason: Agitation Stop: 07/23/19 16:30 Magnesium Hydroxide (Milk Of Magnesia) 30 ml PO HS PRN PRN Reason: Constipation Miscellaneous (Probiotic Screen) 1 ea MC PRN PRN PRN Reason: PROTOCOL Stop: 08/23/19 10:37 Multivitamins/Vitamin C (Theragran) 1 tab PO DAILY MISHA Stop: 08/23/19 08:59 Last Admin: 06/27/19 08:14 Dose: 1 tab Pantoprazole Sodium (Protonix) 40 mg PO QAM MISHA Stop: 08/23/19 08:59 Last Admin: 06/27/19 08:13 Dose: 40 mg Quetiapine Fumarate (Seroquel) 25 mg PO BID MISHA; Protocol Stop: 08/23/19 08:59 Last Admin: 06/27/19 16:27 Dose: 25 mg Risperidone (Risperdal) 1 mg PO BID [facility]; Protocol Stop: 08/26/19 08:59 Last Admin: 06/27/19 16:29 Dose: 1 mg Zolpidem Tartrate (Ambien) 5 mg PO HS PRN PRN Reason: Insomnia Stop: 08/22/19 16:30 Last Admin: 06/26/19 21:22 Dose: 5 mg General: demented HEENT: NC/AT, PERRLA, EOMI, anicteric sclerae, throat clear Neck: Supple, No JVD, No thyromegaly, +2 carotid pulse wo bruit, No LAD, + JVD Lungs: CTAB Cardiovascular: RRR, Normal S1, Normal S2, without murmur Abdomen: non-tender, non-distended Extremities: clear Neurological: no change - Procedures Procedures: Procedures Procedure Code Date OTHER GROUP THERAPY 94.44 04/02/12 RECREATIONAL THERAPY 93.81 04/02/12 Internal Medicine Assmt/Plan - Assessment Assessment: 1.HTN. 2.HYPOTHYROIDISM 3.DJD. 4.PSYCHOSIS - Plan Plan: CONTINUE ON CURRENT MEDICATION AND DIET Nutritional Asmnt/Malnutr-PDOC - Dietary Evaluation Malnutrition Findings (Please click <Entered> for more info): Nutritional Asmnt/Malnutrition Start: 06/25/19 10: 43 Text: Status: Active Freq: Protocol: Document 06/25/19 10:43 POLINA (Rec: 06/25/19 10:50 POLINA HOLLOWAY- FNS1) Nutritional Asmnt/Malnutrition Patient General Information Nutritional Screening Moderate Risk Diagnosis Psychosis NOS Pertinent Medical Hx/Surgical Hx HTN, Hypothyroidism, degenerative joint disease, psychosis Subjective Information Patient was admitted from [facility]. Patient in bed eating lunch at time of visit . Tolerating well. Current Diet Order/ Nutrition Support Pureed Cardiac Pertinent Medications maalox, Culturelle, synthroid, MOM, Theragran, Protonix Pertinent Labs (06/24) Albumin 3.4 Nutritional Hx/Data Height 1.68 m Height (Calculated Centimeters) 167.6 Current Weight (lbs) 57.606 kg Weight (Calculated Kilograms) 57.6 Weight (Calculated Grams) 36350.2 [place] Body Weight 130 % [place] Body Weight 97 Body Mass Index (BMI) 20.5 Recent Weight Change No Weight Status Approriate GI Symptoms GI Symptoms None Last BM none noted Difficult in: None Food Allergies No Cultural/Ethnic/Sikh Belief none indicated Usual diet at home unknown Skin Integrity/Comment: Bhavin 15, Intact Current %PO Good (75-100%) Estimated Nutritional Goals BEE in Kcals: Using Current wt Calories/Kcals/Kg 25-30 kcal/kg using CBW 57.7kg Kcals Calculated ~0806-4005 kcal/day Protein: Using Current wt Protein g/k-1.2 gm/kg Protein Calculated ~60-70 gm/day Fluid: ml ~5430-9849 ml/day (1 ml/kcal) Nutritional Problem 1. Problem Problem No nutrition diagnosis at this time Intervention/Recommendation Comments Continue pureed cardiac diet as tolerated by patient. Assist with meals as needed. Expected Outcomes/Goals Expected Outcomes/Goals Oral intake >75% ofmeals, weight stable, nutrition related labs WNL, skin intact F/U LR 07/02
[2019-06-28] MEDS: Levothyroxine 0.075 Mg Tab PO SCH (06:48)
[2019-06-28] MEDS: Lactobacillus Rhamnosus GG 15 Billion CFU CAP.SPRINK PO SCH (11:07)
[2019-06-28] MEDS: Multivitamin Tab PO SCH (11:07)
[2019-06-28] MEDS: risperiDONE 1 mg/mL 30 mL Bottle PO SCH ×2 (11:07→17:47)
[2019-06-28] MEDS: Pantoprazole 40 mg EC Tab PO SCH (11:07)
--- NOTE | 2019-06-28 21:47 | Internal Medicine Prog Note ---
Internal Medicine Subjective - Subjective Service Date: 06/28/19 Patient seen and examined:: without staff (NO COMPLAINT) Patient is:: awake, verbal, in bed, confused Per staff patient has:: no adverse event Internal Medicine Objective - Results Result Diagrams: 06/24/19 05:09 06/24/19 05:09 Recent Labs: Laboratory Last Values WBC 6.9 Th/cmm (4.8-10.8) 06/24/19 05:09 RBC 3.60 Mil/cmm (3.80-5.20) L 06/24/19 05:09 Hgb 11.3 gm/dL (12-16) L 06/24/19 05:09 Hct 33.9 % (41.0-60) L 06/24/19 05:09 MCV 94.0 fl (81-100) 06/24/19 05:09 MCH 31.3 pg (27.0-31.0) H 06/24/19 05:09 MCHC Differential 33.3 pg (28.0-36.0) 06/24/19 05:09 RDW 12.6 % (11.5-20.0) 06/24/19 05:09 Plt Count 374 Th/cmm (150-400) 06/24/19 05:09 MPV 7.8 fl 06/24/19 05:09 Neutrophils % 54.0 % (40.0-80.0) 06/24/19 05:09 Lymphocytes % 32.6 % (20.0-50.0) 06/24/19 05:09 Monocytes % 6.9 % (2.0-10.0) 06/24/19 05:09 Eosinophils % 3.5 % (0.0-5.0) 06/24/19 05:09 Basophils % 3.0 % (0.0-2.0) H 06/24/19 05:09 Sodium 140 mEq/L (136-145) 06/24/19 05:09 Potassium 3.7 mEq/L (3.5-5.1) 06/24/19 05:09 Chloride 106 mEq/L (98-107) 06/24/19 05:09 Carbon Dioxide 27.3 mEq/L (21.0-31.0) 06/24/19 05:09 Anion Gap 10.4 (7.0-16.0) 06/24/19 05:09 BUN 7 mg/dL (7-25) 06/24/19 05:09 Creatinine 0.8 mg/dL (0.6-1.2) 06/24/19 05:09 Est GFR ( Amer) TNP 06/24/19 05:09 Est GFR (Non-Af Amer) TNP 06/24/19 05:09 BUN/Creatinine Ratio 8.8 06/24/19 05:09 Glucose 90 mg/dL (70-105) 06/24/19 05:09 Calcium 9.0 mg/dL (8.6-10.3) 06/24/19 05:09 Total Bilirubin 0.5 mg/dL (0.3-1.0) 06/24/19 05:09 AST 17 U/L (13-39) 06/24/19 05:09 ALT 15 U/L (7-52) 06/24/19 05:09 Alkaline Phosphatase 43 U/L (34-104) 06/24/19 05:09 Total Protein 6.4 gm/dL (6.0-8.3) 06/24/19 05:09 Albumin 3.4 gm/dL (3.7-5.3) L 06/24/19 05:09 Globulin 3.0 gm/dL 06/24/19 05:09 Albumin/Globulin Ratio 1.1 (1.0-1.8) 06/24/19 05:09 Triglycerides 78 mg/dL (<150) 06/24/19 05:09 Cholesterol 117 mg/dL (<200) 06/24/19 05:09 LDL Cholesterol Direct 67 mg/dL (75-193) L 06/24/19 05:09 HDL Cholesterol 37 mg/dL (23-92) 06/24/19 05:09 - Physical Exam Vitals and I&O: Vital Signs Temp 98.4 F 06/27/19 19:50 Pulse 97 06/27/19 19:50 Resp 25 06/28/19 18:47 BP 124/63 06/27/19 19:50 Pulse Ox 92 06/27/19 19:50 Intake & Output 06/28/19 06/28/19 06/29/19 06:59 18:59 06:59 Intake Total 240 Balance 240 Intake: Oral 240 Other: # Voids 2 Active Medications: Current Medications Acetaminophen (Tylenol) 650 mg PO Q4HR PRN PRN Reason: Mild Pain / Temp above 100 Stop: 08/22/19 16:30 Al Hydrox/Mg Hydrox/Simethicone (Maalox) 30 ml PO Q4HR PRN PRN Reason: GI DISTRESS Stop: 08/22/19 16:30 Amlodipine Besylate (Norvasc) 5 mg PO DAILY MISHA Stop: 08/23/19 08:59 Last Admin: 06/28/19 11:07 Dose: Not Given Cephalexin Monohydrate (Keflex) 250 mg PO Q6HR MISHA Stop: 07/01/19 00:00 Last Admin: 06/28/19 17:48 Dose: 250 mg Donepezil HCl (Aricept) 5 mg PO HS MISHA Stop: 08/22/19 20:59 Last Admin: 06/28/19 20:55 Dose: 5 mg Lactobacillus Rhamnosus (Culturelle 15b) 1 each PO DAILY [facility] Stop: 08/24/19 08:59 Last Admin: 06/28/19 11:07 Dose: Not Given Levothyroxine Sodium (Synthroid) 0.075 mg PO 0700 MISHA Stop: 08/23/19 06:59 Last Admin: 06/28/19 06:48 Dose: 0.075 mg Lorazepam (Ativan) 0.5 mg PO Q4HR PRN; Protocol PRN Reason: Agitation Stop: 07/23/19 16:30 Last Admin: 06/27/19 21:12 Dose: 0.5 mg Magnesium Hydroxide (Milk Of Magnesia) 30 ml PO HS PRN PRN Reason: Constipation Miscellaneous (Probiotic Screen) 1 ea MC PRN PRN PRN Reason: PROTOCOL Stop: 08/23/19 10:37 Multivitamins/Vitamin C (Theragran) 1 tab PO DAILY MISHA Stop: 08/23/19 08:59 Last Admin: 06/28/19 11:07 Dose: Not Given Pantoprazole Sodium (Protonix) 40 mg PO QAM MISHA Stop: 08/23/19 08:59 Last Admin: 06/28/19 11:07 Dose: Not Given Quetiapine Fumarate (Seroquel) 25 mg PO BID MISHA; Protocol Stop: 08/23/19 08:59 Last Admin: 06/28/19 17:48 Dose: 25 mg Risperidone (Risperdal) 1 mg PO BID MISHA; Protocol Stop: 08/26/19 08:59 Last Admin: 06/28/19 17:47 Dose: 1 mg Zolpidem Tartrate (Ambien) 5 mg PO HS PRN PRN Reason: Insomnia Stop: 08/22/19 16:30 Last Admin: 06/27/19 21:12 Dose: 5 mg General: demented HEENT: NC/AT, PERRLA, EOMI, anicteric sclerae, throat clear Neck: Supple, No JVD, No thyromegaly, +2 carotid pulse wo bruit, No LAD, + JVD Lungs: CTAB Cardiovascular: RRR, Normal S1, Normal S2, without murmur Abdomen: non-tender, non-distended Extremities: clear Neurological: no change - Procedures Procedures: Procedures Procedure Code Date OTHER GROUP THERAPY 94.44 04/02/12 RECREATIONAL THERAPY 93.81 04/02/12 Internal Medicine Assmt/Plan - Assessment Assessment: 1.HTN. 2.HYPOTHYROIDISM 3.DJD. 4.PSYCHOSIS - Plan Plan: CONTINUE ON CURRENT MEDICATION AND DIET Nutritional Asmnt/Malnutr-PDOC - Dietary Evaluation Malnutrition Findings (Please click <Entered> for more info): Nutritional Asmnt/Malnutrition Start: 06/25/19 10: 43 Text: Status: Active Freq: Protocol: Document 06/25/19 10:43 MMMICKIE (Rec: 06/25/19 10:50 MMMICKIE HOLLOWAY- FNS1) Nutritional Asmnt/Malnutrition Patient General Information Nutritional Screening Moderate Risk Diagnosis Psychosis NOS Pertinent Medical Hx/Surgical Hx HTN, Hypothyroidism, degenerative joint disease, psychosis Subjective Information Patient was admitted from [facility]. Patient in bed eating lunch at time of visit . Tolerating well. Current Diet Order/ Nutrition Support Pureed Cardiac Pertinent Medications maalox, Culturelle, synthroid, MOM, Theragran, Protonix Pertinent Labs (06/24) Albumin 3.4 Nutritional Hx/Data Height 1.68 m Height (Calculated Centimeters) 167.6 Current Weight (lbs) 57.606 kg Weight (Calculated Kilograms) 57.6 Weight (Calculated Grams) 37119.2 [place] Body Weight 130 % [place] Body Weight 97 Body Mass Index (BMI) 20.5 Recent Weight Change No Weight Status Approriate GI Symptoms GI Symptoms None Last BM none noted Difficult in: None Food Allergies No Cultural/Ethnic/Caodaism Belief none indicated Usual diet at home unknown Skin Integrity/Comment: Bhavin 15, Intact Current %PO Good (75-100%) Estimated Nutritional Goals BEE in Kcals: Using Current wt Calories/Kcals/Kg 25-30 kcal/kg using CBW 57.7kg Kcals Calculated ~1320-7578 kcal/day Protein: Using Current wt Protein g/k-1.2 gm/kg Protein Calculated ~60-70 gm/day Fluid: ml ~1842-9034 ml/day (1 ml/kcal) Nutritional Problem 1. Problem Problem No nutrition diagnosis at this time Intervention/Recommendation Comments Continue pureed cardiac diet as tolerated by patient. Assist with meals as needed. Expected Outcomes/Goals Expected Outcomes/Goals Oral intake >75% ofmeals, weight stable, nutrition related labs WNL, skin intact F/U LR 07/02
--- NOTE | 2019-06-29 00:10 | Progress Notes ---
DATE: 06/28/2019 SUBJECTIVE: An 84-year-old female coming in for agitation, transferred from [facility] for bizarre behaviors. The patient is confused, disoriented, acting strange, bizarre, apparently was spitting and biting people for no reason. The patient remains impulsive, unpredictable, still confused, telling me the reason she is here, which has nothing to do with her being here. Ongoing mood swings, irritability, still concerns that she may strike out at others. Medications were noted. The patient mostly withdrawn. We will continue to monitor. Continue medications and dosages and treatment as set forth by Dr. Blas. JOB# [id number]
[2019-06-29] MEDS: Levothyroxine 0.075 Mg Tab PO SCH (06:13)
[2019-06-29] MEDS: Lactobacillus Rhamnosus GG 15 Billion CFU CAP.SPRINK PO SCH (09:57)
[2019-06-29] MEDS: Pantoprazole 40 mg EC Tab PO SCH (09:59)
[2019-06-29] MEDS: Multivitamin Tab PO SCH (09:59)
[2019-06-29] MEDS: risperiDONE 1 mg/mL 30 mL Bottle PO SCH ×2 (10:00→17:22)
--- NOTE | 2019-06-29 20:46 | Internal Medicine Prog Note ---
Internal Medicine Subjective - Subjective Service Date: 06/29/19 Patient seen and examined:: with staff (SHE FEELS WELL) Patient is:: awake, verbal, in bed, confused Per staff patient has:: no adverse event Internal Medicine Objective - Results Result Diagrams: 06/24/19 05:09 06/24/19 05:09 Recent Labs: Laboratory Last Values WBC 6.9 Th/cmm (4.8-10.8) 06/24/19 05:09 RBC 3.60 Mil/cmm (3.80-5.20) L 06/24/19 05:09 Hgb 11.3 gm/dL (12-16) L 06/24/19 05:09 Hct 33.9 % (41.0-60) L 06/24/19 05:09 MCV 94.0 fl (81-100) 06/24/19 05:09 MCH 31.3 pg (27.0-31.0) H 06/24/19 05:09 MCHC Differential 33.3 pg (28.0-36.0) 06/24/19 05:09 RDW 12.6 % (11.5-20.0) 06/24/19 05:09 Plt Count 374 Th/cmm (150-400) 06/24/19 05:09 MPV 7.8 fl 06/24/19 05:09 Neutrophils % 54.0 % (40.0-80.0) 06/24/19 05:09 Lymphocytes % 32.6 % (20.0-50.0) 06/24/19 05:09 Monocytes % 6.9 % (2.0-10.0) 06/24/19 05:09 Eosinophils % 3.5 % (0.0-5.0) 06/24/19 05:09 Basophils % 3.0 % (0.0-2.0) H 06/24/19 05:09 Sodium 140 mEq/L (136-145) 06/24/19 05:09 Potassium 3.7 mEq/L (3.5-5.1) 06/24/19 05:09 Chloride 106 mEq/L (98-107) 06/24/19 05:09 Carbon Dioxide 27.3 mEq/L (21.0-31.0) 06/24/19 05:09 Anion Gap 10.4 (7.0-16.0) 06/24/19 05:09 BUN 7 mg/dL (7-25) 06/24/19 05:09 Creatinine 0.8 mg/dL (0.6-1.2) 06/24/19 05:09 Est GFR ( Amer) TNP 06/24/19 05:09 Est GFR (Non-Af Amer) TNP 06/24/19 05:09 BUN/Creatinine Ratio 8.8 06/24/19 05:09 Glucose 90 mg/dL (70-105) 06/24/19 05:09 Calcium 9.0 mg/dL (8.6-10.3) 06/24/19 05:09 Total Bilirubin 0.5 mg/dL (0.3-1.0) 06/24/19 05:09 AST 17 U/L (13-39) 06/24/19 05:09 ALT 15 U/L (7-52) 06/24/19 05:09 Alkaline Phosphatase 43 U/L (34-104) 06/24/19 05:09 Total Protein 6.4 gm/dL (6.0-8.3) 06/24/19 05:09 Albumin 3.4 gm/dL (3.7-5.3) L 06/24/19 05:09 Globulin 3.0 gm/dL 06/24/19 05:09 Albumin/Globulin Ratio 1.1 (1.0-1.8) 06/24/19 05:09 Triglycerides 78 mg/dL (<150) 06/24/19 05:09 Cholesterol 117 mg/dL (<200) 06/24/19 05:09 LDL Cholesterol Direct 67 mg/dL (75-193) L 06/24/19 05:09 HDL Cholesterol 37 mg/dL (23-92) 06/24/19 05:09 - Physical Exam Vitals and I&O: Vital Signs Temp 98.3 F 06/29/19 14:00 Pulse 93 06/29/19 14:00 Resp 20 06/29/19 20:00 BP 144/84 06/29/19 14:00 Pulse Ox 95 06/29/19 14:00 Active Medications: Current Medications Acetaminophen (Tylenol) 650 mg PO Q4HR PRN PRN Reason: Mild Pain / Temp above 100 Stop: 08/22/19 16:30 Al Hydrox/Mg Hydrox/Simethicone (Maalox) 30 ml PO Q4HR PRN PRN Reason: GI DISTRESS Stop: 08/22/19 16:30 Amlodipine Besylate (Norvasc) 5 mg PO DAILY MISHA Stop: 08/23/19 08:59 Last Admin: 06/29/19 09:56 Dose: 5 mg Cephalexin Monohydrate (Keflex) 250 mg PO Q6HR MISHA Stop: 07/01/19 00:00 Last Admin: 06/29/19 17:23 Dose: 250 mg Donepezil HCl (Aricept) 5 mg PO HS MISHA Stop: 08/22/19 20:59 Last Admin: 06/28/19 20:55 Dose: 5 mg Lactobacillus Rhamnosus (Culturelle 15b) 1 each PO DAILY MISHA Stop: 08/24/19 08:59 Last Admin: 06/29/19 09:57 Dose: 1 each Levothyroxine Sodium (Synthroid) 0.075 mg PO 0700 MISHA Stop: 08/23/19 06:59 Last Admin: 06/29/19 06:13 Dose: Not Given Lorazepam (Ativan) 0.5 mg PO Q4HR PRN; Protocol PRN Reason: Agitation Stop: 07/23/19 16:30 Last Admin: 06/27/19 21:12 Dose: 0.5 mg Magnesium Hydroxide (Milk Of Magnesia) 30 ml PO HS PRN PRN Reason: Constipation Miscellaneous (Probiotic Screen) 1 ea MC PRN PRN PRN Reason: PROTOCOL Stop: 08/23/19 10:37 Multivitamins/Vitamin C (Theragran) 1 tab PO DAILY MISHA Stop: 08/23/19 08:59 Last Admin: 06/29/19 09:59 Dose: 1 tab Pantoprazole Sodium (Protonix) 40 mg PO QAM MISHA Stop: 08/23/19 08:59 Last Admin: 06/29/19 09:59 Dose: 40 mg Quetiapine Fumarate (Seroquel) 25 mg PO BID [facility]; Protocol Stop: 08/23/19 08:59 Last Admin: 06/29/19 17:22 Dose: 25 mg Risperidone (Risperdal) 1 mg PO BID [facility]; Protocol Stop: 08/26/19 08:59 Last Admin: 06/29/19 17:22 Dose: 1 mg Zolpidem Tartrate (Ambien) 5 mg PO HS PRN PRN Reason: Insomnia Stop: 08/22/19 16:30 Last Admin: 06/27/19 21:12 Dose: 5 mg General: demented HEENT: NC/AT, PERRLA, EOMI, anicteric sclerae, throat clear Neck: Supple, No JVD, No thyromegaly, +2 carotid pulse wo bruit, No LAD, + JVD Lungs: CTAB Cardiovascular: RRR, Normal S1, Normal S2, without murmur Abdomen: non-tender, non-distended Extremities: clear Neurological: no change - Procedures Procedures: Procedures Procedure Code Date OTHER GROUP THERAPY 94.44 04/02/12 RECREATIONAL THERAPY 93.81 04/02/12 Internal Medicine Assmt/Plan - Assessment Assessment: 1.HTN. 2.HYPOTHYROIDISM 3.DJD. 4.PSYCHOSIS - Plan Plan: CONTINUE ON CURRENT MEDICATION AND DIET Nutritional Asmnt/Malnutr-PDOC - Dietary Evaluation Malnutrition Findings (Please click <Entered> for more info): Nutritional Asmnt/Malnutrition Start: 06/25/19 10: 43 Text: Status: Active Freq: Protocol: Document 06/25/19 10:43 MMMICKIE (Rec: 06/25/19 10:50 MMULHERWin AMIE- [email or web address]) Nutritional Asmnt/Malnutrition Patient General Information Nutritional Screening Moderate Risk Diagnosis Psychosis NOS Pertinent Medical Hx/Surgical Hx HTN, Hypothyroidism, degenerative joint disease, psychosis Subjective Information Patient was admitted from [facility]. Patient in bed eating lunch at time of visit . Tolerating well. Current Diet Order/ Nutrition Support Pureed Cardiac Pertinent Medications maalox, Culturelle, synthroid, MOM, Theragran, Protonix Pertinent Labs (06/24) Albumin 3.4 Nutritional Hx/Data Height 1.68 m Height (Calculated Centimeters) 167.6 Current Weight (lbs) 57.606 kg Weight (Calculated Kilograms) 57.6 Weight (Calculated Grams) 50223.2 [place] Body Weight 130 % [place] Body Weight 97 Body Mass Index (BMI) 20.5 Recent Weight Change No Weight Status Approriate GI Symptoms GI Symptoms None Last BM none noted Difficult in: None Food Allergies No Cultural/Ethnic/Amish Belief none indicated Usual diet at home unknown Skin Integrity/Comment: Bhavin 15, Intact Current %PO Good (75-100%) Estimated Nutritional Goals BEE in Kcals: Using Current wt Calories/Kcals/Kg 25-30 kcal/kg using CBW 57.7kg Kcals Calculated ~3949-2341 kcal/day Protein: Using Current wt Protein g/k-1.2 gm/kg Protein Calculated ~60-70 gm/day Fluid: ml ~3260-9187 ml/day (1 ml/kcal) Nutritional Problem 1. Problem Problem No nutrition diagnosis at this time Intervention/Recommendation Comments Continue pureed cardiac diet as tolerated by patient. Assist with meals as needed. Expected Outcomes/Goals Expected Outcomes/Goals Oral intake >75% ofmeals, weight stable, nutrition related labs WNL, skin intact F/U LR 07/02
[2019-06-30] MEDS: Levothyroxine 0.075 Mg Tab PO SCH (07:02)
[2019-06-30] MEDS: Pantoprazole 40 mg EC Tab PO SCH (09:26)
[2019-06-30] MEDS: Multivitamin Tab PO SCH (09:26)
[2019-06-30] MEDS: Lactobacillus Rhamnosus GG 15 Billion CFU CAP.SPRINK PO SCH (09:28)
[2019-06-30] MEDS: risperiDONE 1 mg/mL 30 mL Bottle PO SCH ×2 (09:28→17:55)
--- NOTE | 2019-06-30 17:25 | Internal Medicine Prog Note ---
Internal Medicine Subjective - Subjective Service Date: 06/30/19 Patient seen and examined:: without staff (SHE IS DOING BETTER) Patient is:: awake, verbal, in bed, confused Per staff patient has:: no adverse event Internal Medicine Objective - Results Result Diagrams: 06/24/19 05:09 06/24/19 05:09 Recent Labs: Laboratory Last Values WBC 6.9 Th/cmm (4.8-10.8) 06/24/19 05:09 RBC 3.60 Mil/cmm (3.80-5.20) L 06/24/19 05:09 Hgb 11.3 gm/dL (12-16) L 06/24/19 05:09 Hct 33.9 % (41.0-60) L 06/24/19 05:09 MCV 94.0 fl (81-100) 06/24/19 05:09 MCH 31.3 pg (27.0-31.0) H 06/24/19 05:09 MCHC Differential 33.3 pg (28.0-36.0) 06/24/19 05:09 RDW 12.6 % (11.5-20.0) 06/24/19 05:09 Plt Count 374 Th/cmm (150-400) 06/24/19 05:09 MPV 7.8 fl 06/24/19 05:09 Neutrophils % 54.0 % (40.0-80.0) 06/24/19 05:09 Lymphocytes % 32.6 % (20.0-50.0) 06/24/19 05:09 Monocytes % 6.9 % (2.0-10.0) 06/24/19 05:09 Eosinophils % 3.5 % (0.0-5.0) 06/24/19 05:09 Basophils % 3.0 % (0.0-2.0) H 06/24/19 05:09 Sodium 140 mEq/L (136-145) 06/24/19 05:09 Potassium 3.7 mEq/L (3.5-5.1) 06/24/19 05:09 Chloride 106 mEq/L (98-107) 06/24/19 05:09 Carbon Dioxide 27.3 mEq/L (21.0-31.0) 06/24/19 05:09 Anion Gap 10.4 (7.0-16.0) 06/24/19 05:09 BUN 7 mg/dL (7-25) 06/24/19 05:09 Creatinine 0.8 mg/dL (0.6-1.2) 06/24/19 05:09 Est GFR ( Amer) TNP 06/24/19 05:09 Est GFR (Non-Af Amer) TNP 06/24/19 05:09 BUN/Creatinine Ratio 8.8 06/24/19 05:09 Glucose 90 mg/dL (70-105) 06/24/19 05:09 Calcium 9.0 mg/dL (8.6-10.3) 06/24/19 05:09 Total Bilirubin 0.5 mg/dL (0.3-1.0) 06/24/19 05:09 AST 17 U/L (13-39) 06/24/19 05:09 ALT 15 U/L (7-52) 06/24/19 05:09 Alkaline Phosphatase 43 U/L (34-104) 06/24/19 05:09 Total Protein 6.4 gm/dL (6.0-8.3) 06/24/19 05:09 Albumin 3.4 gm/dL (3.7-5.3) L 06/24/19 05:09 Globulin 3.0 gm/dL 06/24/19 05:09 Albumin/Globulin Ratio 1.1 (1.0-1.8) 06/24/19 05:09 Triglycerides 78 mg/dL (<150) 06/24/19 05:09 Cholesterol 117 mg/dL (<200) 06/24/19 05:09 LDL Cholesterol Direct 67 mg/dL (75-193) L 06/24/19 05:09 HDL Cholesterol 37 mg/dL (23-92) 06/24/19 05:09 - Physical Exam Vitals and I&O: Vital Signs Temp 97.6 F 06/30/19 14:00 Pulse 94 06/30/19 14:00 Resp 18 06/30/19 14:00 BP 110/63 06/30/19 14:00 Pulse Ox 96 06/30/19 14:00 Active Medications: Current Medications Acetaminophen (Tylenol) 650 mg PO Q4HR PRN PRN Reason: Mild Pain / Temp above 100 Stop: 08/22/19 16:30 Al Hydrox/Mg Hydrox/Simethicone (Maalox) 30 ml PO Q4HR PRN PRN Reason: GI DISTRESS Stop: 08/22/19 16:30 Amlodipine Besylate (Norvasc) 5 mg PO DAILY MISHA Stop: 08/23/19 08:59 Last Admin: 06/30/19 09:27 Dose: 5 mg Cephalexin Monohydrate (Keflex) 250 mg PO Q6HR MISHA Stop: 07/01/19 00:00 Last Admin: 06/30/19 13:00 Dose: Not Given Donepezil HCl (Aricept) 5 mg PO HS MISHA Stop: 08/22/19 20:59 Last Admin: 06/29/19 21:43 Dose: 5 mg Lactobacillus Rhamnosus (Culturelle 15b) 1 each PO DAILY MISHA Stop: 08/24/19 08:59 Last Admin: 06/30/19 09:28 Dose: 1 each Levothyroxine Sodium (Synthroid) 0.075 mg PO 0700 MISHA Stop: 08/23/19 06:59 Last Admin: 06/30/19 07:02 Dose: Not Given Lorazepam (Ativan) 0.5 mg PO Q4HR PRN; Protocol PRN Reason: Agitation Stop: 07/23/19 16:30 Last Admin: 06/27/19 21:12 Dose: 0.5 mg Magnesium Hydroxide (Milk Of Magnesia) 30 ml PO HS PRN PRN Reason: Constipation Miscellaneous (Probiotic Screen) 1 ea MC PRN PRN PRN Reason: PROTOCOL Stop: 08/23/19 10:37 Multivitamins/Vitamin C (Theragran) 1 tab PO DAILY MISHA Stop: 08/23/19 08:59 Last Admin: 06/30/19 09:26 Dose: 1 tab Pantoprazole Sodium (Protonix) 40 mg PO QAM MISHA Stop: 08/23/19 08:59 Last Admin: 06/30/19 09:26 Dose: 40 mg Quetiapine Fumarate (Seroquel) 25 mg PO BID [facility]; Protocol Stop: 08/23/19 08:59 Last Admin: 06/30/19 09:27 Dose: 25 mg Risperidone (Risperdal) 1 mg PO BID [facility]; Protocol Stop: 08/26/19 08:59 Last Admin: 06/30/19 09:28 Dose: 1 mg Zolpidem Tartrate (Ambien) 5 mg PO HS PRN PRN Reason: Insomnia Stop: 08/22/19 16:30 Last Admin: 06/27/19 21:12 Dose: 5 mg General: demented HEENT: NC/AT, PERRLA, EOMI, anicteric sclerae, throat clear Neck: Supple, No JVD, No thyromegaly, +2 carotid pulse wo bruit, No LAD, + JVD Lungs: CTAB Cardiovascular: RRR, Normal S1, Normal S2, without murmur Abdomen: non-tender, non-distended Extremities: clear Neurological: no change - Procedures Procedures: Procedures Procedure Code Date OTHER GROUP THERAPY 94.44 04/02/12 RECREATIONAL THERAPY 93.81 04/02/12 Internal Medicine Assmt/Plan - Assessment Assessment: 1.HTN. 2.HYPOTHYROIDISM 3.DJD. 4.PSYCHOSIS - Plan Plan: CONTINUE ON CURRENT MEDICATION AND DIET Nutritional Asmnt/Malnutr-PDOC - Dietary Evaluation Malnutrition Findings (Please click <Entered> for more info): Nutritional Asmnt/Malnutrition Start: 06/25/19 10: 43 Text: Status: Active Freq: Protocol: Document 06/25/19 10:43 MMMICKIE (Rec: 06/25/19 10:50 MMULHERWin AMIE- [email or web address]) Nutritional Asmnt/Malnutrition Patient General Information Nutritional Screening Moderate Risk Diagnosis Psychosis NOS Pertinent Medical Hx/Surgical Hx HTN, Hypothyroidism, degenerative joint disease, psychosis Subjective Information Patient was admitted from [facility]. Patient in bed eating lunch at time of visit . Tolerating well. Current Diet Order/ Nutrition Support Pureed Cardiac Pertinent Medications maalox, Culturelle, synthroid, MOM, Theragran, Protonix Pertinent Labs (06/24) Albumin 3.4 Nutritional Hx/Data Height 1.68 m Height (Calculated Centimeters) 167.6 Current Weight (lbs) 57.606 kg Weight (Calculated Kilograms) 57.6 Weight (Calculated Grams) 02940.2 [place] Body Weight 130 % [place] Body Weight 97 Body Mass Index (BMI) 20.5 Recent Weight Change No Weight Status Approriate GI Symptoms GI Symptoms None Last BM none noted Difficult in: None Food Allergies No Cultural/Ethnic/Advent Belief none indicated Usual diet at home unknown Skin Integrity/Comment: Bhavin 15, Intact Current %PO Good (75-100%) Estimated Nutritional Goals BEE in Kcals: Using Current wt Calories/Kcals/Kg 25-30 kcal/kg using CBW 57.7kg Kcals Calculated ~3532-0014 kcal/day Protein: Using Current wt Protein g/k-1.2 gm/kg Protein Calculated ~60-70 gm/day Fluid: ml ~1755-6889 ml/day (1 ml/kcal) Nutritional Problem 1. Problem Problem No nutrition diagnosis at this time Intervention/Recommendation Comments Continue pureed cardiac diet as tolerated by patient. Assist with meals as needed. Expected Outcomes/Goals Expected Outcomes/Goals Oral intake >75% ofmeals, weight stable, nutrition related labs WNL, skin intact F/U LR 07/02
--- NOTE | 2019-06-30 19:56 | Progress Notes ---
DATE: SUBJECTIVE: Chart reviewed and the patient interviewed. Also discussed the patient's condition with the staff and reviewed records and labs. The patient continued to be confused. The patient also is still delusional and is still actively responding. The patient also is talking to herself. She also is still having severe mood swings. Also, the patient is selective with her medications and at times she does not take her medications. She only took Seroquel once and Risperdal once. On the other hand, the patient still hallucinating and is still confused and needs close monitoring. ASSESSMENT: The patient is still psychotic and confused. TREATMENT PLAN: Encourage the patient to take her medications regularly. Also, continue monitoring behavior and working on her agitation and irritability as well as her compliance with taking her medications. [facility]# [id number]
--- NOTE | 2019-07-01 01:50 | Progress Notes ---
DATE: 06/30/2019 SUBJECTIVE: Chart was reviewed and the patient interviewed. Also, discussed the patient's condition with the staff and reviewed records and labs. The patient is still delusional and is still talking to herself. The patient also is less irritable and is less agitated. The patient also is still talking to self and is still responding. Otherwise, the patient is compliant with taking medications with no side effect of medications. Also, periods of mood swings and irritability. The patient is also still selective with medications. ASSESSMENT: The patient is still psychotic and needs close monitoring. TREATMENT PLAN: Continue to monitor behavior and condition closely and continue adjusting psychotropic medications and work on behavioral modification. JOB# [id number]
[2019-07-01] MEDS: Levothyroxine 0.075 Mg Tab PO SCH (06:52)
--- NOTE | 2019-07-01 08:31 | Progress Notes ---
DATE: SUBJECTIVE: Chart was reviewed and the patient interviewed. Also discussed the patient's condition with the staff and reviewed records and labs. The patient is still restless and is still in angry and irritable mood. The patient also is still easily agitated and still has mood swings and also selective with her medications. Yesterday, the patient refused to take her medication at night, but she did take it in the morning. The patient also still needs lots of redirections because of her confusion. The patient also is still having difficulty with her mood and still needs lots of redirections. On the other hand, the patient continued to compliant with taking her medications with no side effects of medications. ASSESSMENT: The patient is still restless and still in irritable mood and needs close monitoring. TREATMENT PLAN: We will continue monitoring her behavior and her condition closely. Also, we will continue adjusting psychotropic medications and the patient will continue to take Aricept 5 mg every day and also will continue to take Risperdal 25 mg twice a day and Risperdal 1 mg at bedtime. Plan to discontinue Seroquel and continue Risperdal in a dose of 1 mg twice a day and we will continue to follow up closely, also working on discharge plans and placement issue and planning to talk to the patient's family in regard to her placement. [facility]# [id number]
[2019-07-01] MEDS: Pantoprazole 40 mg EC Tab PO SCH (09:05)
[2019-07-01] MEDS: Lactobacillus Rhamnosus GG 15 Billion CFU CAP.SPRINK PO SCH (09:06)
[2019-07-01] MEDS: Multivitamin Tab PO SCH (09:06)
[2019-07-01] MEDS: risperiDONE 1 mg/mL 30 mL Bottle PO SCH ×2 (09:06→18:00)
--- NOTE | 2019-07-01 17:59 | Internal Medicine Prog Note ---
Internal Medicine Subjective - Subjective Service Date: 07/01/19 Patient seen and examined:: without staff (SHE IS DOING BETTER) Patient is:: awake, verbal, in bed, confused Per staff patient has:: no adverse event Internal Medicine Objective - Results Result Diagrams: 06/24/19 05:09 06/24/19 05:09 Recent Labs: Laboratory Last Values WBC 6.9 Th/cmm (4.8-10.8) 06/24/19 05:09 RBC 3.60 Mil/cmm (3.80-5.20) L 06/24/19 05:09 Hgb 11.3 gm/dL (12-16) L 06/24/19 05:09 Hct 33.9 % (41.0-60) L 06/24/19 05:09 MCV 94.0 fl (81-100) 06/24/19 05:09 MCH 31.3 pg (27.0-31.0) H 06/24/19 05:09 MCHC Differential 33.3 pg (28.0-36.0) 06/24/19 05:09 RDW 12.6 % (11.5-20.0) 06/24/19 05:09 Plt Count 374 Th/cmm (150-400) 06/24/19 05:09 MPV 7.8 fl 06/24/19 05:09 Neutrophils % 54.0 % (40.0-80.0) 06/24/19 05:09 Lymphocytes % 32.6 % (20.0-50.0) 06/24/19 05:09 Monocytes % 6.9 % (2.0-10.0) 06/24/19 05:09 Eosinophils % 3.5 % (0.0-5.0) 06/24/19 05:09 Basophils % 3.0 % (0.0-2.0) H 06/24/19 05:09 Sodium 140 mEq/L (136-145) 06/24/19 05:09 Potassium 3.7 mEq/L (3.5-5.1) 06/24/19 05:09 Chloride 106 mEq/L (98-107) 06/24/19 05:09 Carbon Dioxide 27.3 mEq/L (21.0-31.0) 06/24/19 05:09 Anion Gap 10.4 (7.0-16.0) 06/24/19 05:09 BUN 7 mg/dL (7-25) 06/24/19 05:09 Creatinine 0.8 mg/dL (0.6-1.2) 06/24/19 05:09 Est GFR ( Amer) TNP 06/24/19 05:09 Est GFR (Non-Af Amer) TNP 06/24/19 05:09 BUN/Creatinine Ratio 8.8 06/24/19 05:09 Glucose 90 mg/dL (70-105) 06/24/19 05:09 Calcium 9.0 mg/dL (8.6-10.3) 06/24/19 05:09 Total Bilirubin 0.5 mg/dL (0.3-1.0) 06/24/19 05:09 AST 17 U/L (13-39) 06/24/19 05:09 ALT 15 U/L (7-52) 06/24/19 05:09 Alkaline Phosphatase 43 U/L (34-104) 06/24/19 05:09 Total Protein 6.4 gm/dL (6.0-8.3) 06/24/19 05:09 Albumin 3.4 gm/dL (3.7-5.3) L 06/24/19 05:09 Globulin 3.0 gm/dL 06/24/19 05:09 Albumin/Globulin Ratio 1.1 (1.0-1.8) 06/24/19 05:09 Triglycerides 78 mg/dL (<150) 06/24/19 05:09 Cholesterol 117 mg/dL (<200) 06/24/19 05:09 LDL Cholesterol Direct 67 mg/dL (75-193) L 06/24/19 05:09 HDL Cholesterol 37 mg/dL (23-92) 06/24/19 05:09 - Physical Exam Vitals and I&O: Vital Signs Temp 97.9 F 07/01/19 14:00 Pulse 99 07/01/19 14:00 Resp 18 07/01/19 14:00 BP 110/52 07/01/19 14:00 Pulse Ox 93 07/01/19 14:00 Intake & Output 06/30/19 07/01/19 07/01/19 18:59 06:59 18:59 Intake Total 1340 Balance 1340 Intake: Oral 1220 Other 120 Other: # Voids 2 # Bowel Movements 0 Active Medications: Current Medications Acetaminophen (Tylenol) 650 mg PO Q4HR PRN PRN Reason: Mild Pain / Temp above 100 Stop: 08/22/19 16:30 Al Hydrox/Mg Hydrox/Simethicone (Maalox) 30 ml PO Q4HR PRN PRN Reason: GI DISTRESS Stop: 08/22/19 16:30 Amlodipine Besylate (Norvasc) 5 mg PO DAILY MISHA Stop: 08/23/19 08:59 Last Admin: 07/01/19 09:06 Dose: 5 mg Donepezil HCl (Aricept) 5 mg PO HS MISHA Stop: 08/22/19 20:59 Last Admin: 06/30/19 22:00 Dose: Not Given Lactobacillus Rhamnosus (Culturelle 15b) 1 each PO DAILY MISHA Stop: 08/24/19 08:59 Last Admin: 07/01/19 09:06 Dose: 1 each Levothyroxine Sodium (Synthroid) 0.075 mg PO 0700 [facility] Stop: 08/23/19 06:59 Last Admin: 07/01/19 06:52 Dose: Not Given Lorazepam (Ativan) 0.5 mg PO Q4HR PRN; Protocol PRN Reason: Agitation Stop: 07/23/19 16:30 Last Admin: 06/27/19 21:12 Dose: 0.5 mg Magnesium Hydroxide (Milk Of Magnesia) 30 ml PO HS PRN PRN Reason: Constipation Miscellaneous (Probiotic Screen) 1 ea MC PRN PRN PRN Reason: PROTOCOL Stop: 08/23/19 10:37 Multivitamins/Vitamin C (Theragran) 1 tab PO DAILY MISHA Stop: 08/23/19 08:59 Last Admin: 07/01/19 09:06 Dose: 1 tab Pantoprazole Sodium (Protonix) 40 mg PO QAM MISHA Stop: 08/23/19 08:59 Last Admin: 07/01/19 09:05 Dose: 40 mg Risperidone (Risperdal) 1 mg PO BID MISHA; Protocol Stop: 08/26/19 08:59 Last Admin: 07/01/19 09:06 Dose: 1 mg Zolpidem Tartrate (Ambien) 5 mg PO HS PRN PRN Reason: Insomnia Stop: 08/22/19 16:30 Last Admin: 06/27/19 21:12 Dose: 5 mg General: demented HEENT: NC/AT, PERRLA, EOMI, anicteric sclerae, throat clear Neck: Supple, No JVD, No thyromegaly, +2 carotid pulse wo bruit, No LAD, + JVD Lungs: CTAB Cardiovascular: RRR, Normal S1, Normal S2, without murmur Abdomen: non-tender, non-distended Extremities: clear Neurological: no change - Procedures Procedures: Procedures Procedure Code Date OTHER GROUP THERAPY 94.44 04/02/12 RECREATIONAL THERAPY 93.81 04/02/12 Internal Medicine Assmt/Plan - Assessment Assessment: 1.HTN. 2.HYPOTHYROIDISM 3.DJD. 4.PSYCHOSIS - Plan Plan: CONTINUE ON CURRENT MEDICATION AND DIET Nutritional Asmnt/Malnutr-PDOC - Dietary Evaluation Malnutrition Findings (Please click <Entered> for more info): Nutritional Asmnt/Malnutrition Start: 06/25/19 10: 43 Text: Status: Active Freq: Protocol: Document 06/25/19 10:43 POLINA (Rec: 06/25/19 10:50 MMMICKIE AMIE- FNS1) Nutritional Asmnt/Malnutrition Patient General Information Nutritional Screening Moderate Risk Diagnosis Psychosis NOS Pertinent Medical Hx/Surgical Hx HTN, Hypothyroidism, degenerative joint disease, psychosis Subjective Information Patient was admitted from [facility]. Patient in bed eating lunch at time of visit . Tolerating well. Current Diet Order/ Nutrition Support Pureed Cardiac Pertinent Medications maalox, Culturelle, synthroid, MOM, Theragran, Protonix Pertinent Labs (06/24) Albumin 3.4 Nutritional Hx/Data Height 1.68 m Height (Calculated Centimeters) 167.6 Current Weight (lbs) 57.606 kg Weight (Calculated Kilograms) 57.6 Weight (Calculated Grams) 18681.2 [place] Body Weight 130 % [place] Body Weight 97 Body Mass Index (BMI) 20.5 Recent Weight Change No Weight Status Approriate GI Symptoms GI Symptoms None Last BM none noted Difficult in: None Food Allergies No Cultural/Ethnic/Congregation Belief none indicated Usual diet at home unknown Skin Integrity/Comment: Bhavin 15, Intact Current %PO Good (75-100%) Estimated Nutritional Goals BEE in Kcals: Using Current wt Calories/Kcals/Kg 25-30 kcal/kg using CBW 57.7kg Kcals Calculated ~6557-0090 kcal/day Protein: Using Current wt Protein g/k-1.2 gm/kg Protein Calculated ~60-70 gm/day Fluid: ml ~8286-7784 ml/day (1 ml/kcal) Nutritional Problem 1. Problem Problem No nutrition diagnosis at this time Intervention/Recommendation Comments Continue pureed cardiac diet as tolerated by patient. Assist with meals as needed. Expected Outcomes/Goals Expected Outcomes/Goals Oral intake >75% ofmeals, weight stable, nutrition related labs WNL, skin intact F/U LR 07/02
[2019-07-02] MEDS: Levothyroxine 0.075 Mg Tab PO SCH (06:33)
[2019-07-02] MEDS: risperiDONE 1 mg/mL 30 mL Bottle PO SCH ×2 (09:00→18:16)
[2019-07-02] MEDS: Pantoprazole 40 mg EC Tab PO SCH (09:00)
[2019-07-02] MEDS: Multivitamin Tab PO SCH (10:49)
[2019-07-02] MEDS: Lactobacillus Rhamnosus GG 15 Billion CFU CAP.SPRINK PO SCH (10:49)
--- NOTE | 2019-07-02 15:17 | General Progress Note ---
Subjective - Review of Systems Service Date: 07/02/19 Subjective: resting comfortably no distress Objective - Results Result Diagrams: 06/24/19 05:09 06/24/19 05:09 Recent Labs: Laboratory Last Values WBC 6.9 Th/cmm (4.8-10.8) 06/24/19 05:09 RBC 3.60 Mil/cmm (3.80-5.20) L 06/24/19 05:09 Hgb 11.3 gm/dL (12-16) L 06/24/19 05:09 Hct 33.9 % (41.0-60) L 06/24/19 05:09 MCV 94.0 fl (81-100) 06/24/19 05:09 MCH 31.3 pg (27.0-31.0) H 06/24/19 05:09 MCHC Differential 33.3 pg (28.0-36.0) 06/24/19 05:09 RDW 12.6 % (11.5-20.0) 06/24/19 05:09 Plt Count 374 Th/cmm (150-400) 06/24/19 05:09 MPV 7.8 fl 06/24/19 05:09 Neutrophils % 54.0 % (40.0-80.0) 06/24/19 05:09 Lymphocytes % 32.6 % (20.0-50.0) 06/24/19 05:09 Monocytes % 6.9 % (2.0-10.0) 06/24/19 05:09 Eosinophils % 3.5 % (0.0-5.0) 06/24/19 05:09 Basophils % 3.0 % (0.0-2.0) H 06/24/19 05:09 Sodium 140 mEq/L (136-145) 06/24/19 05:09 Potassium 3.7 mEq/L (3.5-5.1) 06/24/19 05:09 Chloride 106 mEq/L (98-107) 06/24/19 05:09 Carbon Dioxide 27.3 mEq/L (21.0-31.0) 06/24/19 05:09 Anion Gap 10.4 (7.0-16.0) 06/24/19 05:09 BUN 7 mg/dL (7-25) 06/24/19 05:09 Creatinine 0.8 mg/dL (0.6-1.2) 06/24/19 05:09 Est GFR ( Amer) TNP 06/24/19 05:09 Est GFR (Non-Af Amer) TNP 06/24/19 05:09 BUN/Creatinine Ratio 8.8 06/24/19 05:09 Glucose 90 mg/dL (70-105) 06/24/19 05:09 Calcium 9.0 mg/dL (8.6-10.3) 06/24/19 05:09 Total Bilirubin 0.5 mg/dL (0.3-1.0) 06/24/19 05:09 AST 17 U/L (13-39) 06/24/19 05:09 ALT 15 U/L (7-52) 06/24/19 05:09 Alkaline Phosphatase 43 U/L (34-104) 06/24/19 05:09 Total Protein 6.4 gm/dL (6.0-8.3) 06/24/19 05:09 Albumin 3.4 gm/dL (3.7-5.3) L 06/24/19 05:09 Globulin 3.0 gm/dL 06/24/19 05:09 Albumin/Globulin Ratio 1.1 (1.0-1.8) 06/24/19 05:09 Triglycerides 78 mg/dL (<150) 06/24/19 05:09 Cholesterol 117 mg/dL (<200) 06/24/19 05:09 LDL Cholesterol Direct 67 mg/dL (75-193) L 06/24/19 05:09 HDL Cholesterol 37 mg/dL (23-92) 06/24/19 05:09 - Physical Exam Vitals and I&O: Vital Signs Temp 97.9 F 07/02/19 14:00 Pulse 89 07/02/19 14:00 Resp 18 07/02/19 14:00 BP 118/54 07/02/19 14:00 Pulse Ox 97 07/02/19 14:00 Intake & Output 07/01/19 07/02/19 07/02/19 18:59 06:59 18:59 Intake Total 1200 480 Balance 1200 480 Intake: Oral 1200 480 Other: # Voids 3 2 # Bowel Movements 1 Active Medications: Current Medications Acetaminophen (Tylenol) 650 mg PO Q4HR PRN PRN Reason: Mild Pain / Temp above 100 Stop: 08/22/19 16:30 Al Hydrox/Mg Hydrox/Simethicone (Maalox) 30 ml PO Q4HR PRN PRN Reason: GI DISTRESS Stop: 08/22/19 16:30 Amlodipine Besylate (Norvasc) 5 mg PO DAILY [facility] Stop: 08/23/19 08:59 Last Admin: 07/02/19 10:47 Dose: Not Given Donepezil HCl (Aricept) 5 mg PO HS MISHA Stop: 08/22/19 20:59 Last Admin: 07/01/19 20:45 Dose: 5 mg Lactobacillus Rhamnosus (Culturelle 15b) 1 each PO DAILY MISHA Stop: 08/24/19 08:59 Last Admin: 07/02/19 10:49 Dose: 1 each Levothyroxine Sodium (Synthroid) 0.075 mg PO 0700 MISHA Stop: 08/23/19 06:59 Last Admin: 07/02/19 06:33 Dose: 0.075 mg Lorazepam (Ativan) 0.5 mg PO Q4HR PRN; Protocol PRN Reason: Agitation Stop: 07/23/19 16:30 Last Admin: 06/27/19 21:12 Dose: 0.5 mg Magnesium Hydroxide (Milk Of Magnesia) 30 ml PO HS PRN PRN Reason: Constipation Miscellaneous (Probiotic Screen) 1 ea MC PRN PRN PRN Reason: PROTOCOL Stop: 08/23/19 10:37 Multivitamins/Vitamin C (Theragran) 1 tab PO DAILY MISHA Stop: 08/23/19 08:59 Last Admin: 07/02/19 10:49 Dose: 1 tab Pantoprazole Sodium (Protonix) 40 mg PO QAM MISHA Stop: 08/23/19 08:59 Last Admin: 07/02/19 09:00 Dose: 40 mg Risperidone (Risperdal) 1 mg PO BID MISHA; Protocol Stop: 08/26/19 08:59 Last Admin: 07/02/19 09:00 Dose: 1 mg Zolpidem Tartrate (Ambien) 5 mg PO HS PRN PRN Reason: Insomnia Stop: 08/22/19 16:30 Last Admin: 06/27/19 21:12 Dose: 5 mg General: No acute distress HEENT: PERRLA Neck: Supple, JVD, Thyromegaly Cardiovascular: Regular rate, Normal S1, Normal S2 Lungs: Clear to auscultation Abdomen: Bowel sounds, Soft - Procedures Procedures: Procedures Procedure Code Date OTHER GROUP THERAPY 94.44 04/02/12 RECREATIONAL THERAPY 93.81 04/02/12 Assessment/Plan - Assessment Assessment: 1.HTN. 2.HYPOTHYROIDISM 3.DJD. 4.PSYCHOSIS - Plan Plan: continue current treatment Nutritional Asmnt/Malnutr-PDOC - Dietary Evaluation Malnutrition Findings (Please click <Entered> for more info): Nutritional Asmnt/Malnutrition Start: 06/25/19 10: 43 Text: Status: Active Freq: Protocol: Document 06/25/19 10:43 POLINA (Rec: 06/25/19 10:50 POLINA HOLLOWAY- [email or web address]) Nutritional Asmnt/Malnutrition Patient General Information Nutritional Screening Moderate Risk Diagnosis Psychosis NOS Pertinent Medical Hx/Surgical Hx HTN, Hypothyroidism, degenerative joint disease, psychosis Subjective Information Patient was admitted from [facility]. Patient in bed eating lunch at time of visit . Tolerating well. Current Diet Order/ Nutrition Support Pureed Cardiac Pertinent Medications maalox, Culturelle, synthroid, MOM, Theragran, Protonix Pertinent Labs (06/24) Albumin 3.4 Nutritional Hx/Data Height 1.68 m Height (Calculated Centimeters) 167.6 Current Weight (lbs) 57.606 kg Weight (Calculated Kilograms) 57.6 Weight (Calculated Grams) 43999.2 [place] Body Weight 130 % [place] Body Weight 97 Body Mass Index (BMI) 20.5 Recent Weight Change No Weight Status Approriate GI Symptoms GI Symptoms None Last BM none noted Difficult in: None Food Allergies No Cultural/Ethnic/Rastafarian Belief none indicated Usual diet at home unknown Skin Integrity/Comment: Bhavin 15, Intact Current %PO Good (75-100%) Estimated Nutritional Goals BEE in Kcals: Using Current wt Calories/Kcals/Kg 25-30 kcal/kg using CBW 57.7kg Kcals Calculated ~0187-9257 kcal/day Protein: Using Current wt Protein g/k-1.2 gm/kg Protein Calculated ~60-70 gm/day Fluid: ml ~9569-6821 ml/day (1 ml/kcal) Nutritional Problem 1. Problem Problem No nutrition diagnosis at this time Intervention/Recommendation Comments Continue pureed cardiac diet as tolerated by patient. Assist with meals as needed. Expected Outcomes/Goals Expected Outcomes/Goals Oral intake >75% ofmeals, weight stable, nutrition related labs WNL, skin intact F/U LR 07/02
--- NOTE | 2019-07-02 17:23 | Progress Notes ---
DATE: 07/02/[address] Blas. SUBJECTIVE: This is an 84-year-old female who was admitted on 06/23/2019, transferred to [facility] because of increasing agitation, bizarre behavior, confused, altered level of consciousness approximately one-half weeks prior to admission. The patient has been acting bizarre pouring water on food and also spitting and biting people for no reason. The patient's family has been unable to control her behavior and her strange behavior and the patient was brought to the hospital. The patient was found to be dehydrated at [facility] with urinary tract infection, which may have complicated situation. The patient with a history of dementia. The patient is confused with left-sided hemiparesis, hypertension, and hypothyroidism. The patient continues to be confused, unpredictable, impulsive, easily agitated, unable to make safe plan for self-care, restless, irritable at times, refusing to take her medication monae, irritable. She has been at times refusing her medication. Her current medications include Risperdal that was increased to 1 mg twice a day with no side effects, no sedation, no nausea, and no extrapyramidal symptoms. We will continue outpatient group therapy, milieu therapy, and adjust medication as needed. [facility]# [id number]
[2019-07-03] MEDS: Levothyroxine 0.075 Mg Tab PO SCH (06:34)
[2019-07-03] MEDS: Multivitamin Tab PO SCH (09:00)
[2019-07-03] MEDS: risperiDONE 1 mg/mL 30 mL Bottle PO SCH ×2 (09:00→17:44)
[2019-07-03] MEDS: Lactobacillus Rhamnosus GG 15 Billion CFU CAP.SPRINK PO SCH (09:00)
[2019-07-03] MEDS: Pantoprazole 40 mg EC Tab PO SCH (09:00)
--- NOTE | 2019-07-03 14:32 | Progress Notes ---
DATE: 07/03/[address] Blas. Case was discussed with staff of the patient, reviewed records. The patient continues to have episodes of irritability, anger outbursts. Continues to be restless. Continues to have mood swings. She is selective at times with her medication, does not like to take her medication, took it in the morning. She needs a lot of redirection. She is unpredictable, impulsive. No side effects of the medication, no sedation, no nausea, tolerating increase in Risperdal. No extrapyramidal symptoms. We will continue outpatient group therapy, milieu therapy, adjust medication as needed. JOB# [id number]
--- NOTE | 2019-07-03 21:14 | General Progress Note ---
Subjective - Review of Systems Service Date: 07/03/19 Subjective: resting comfortably no distress Objective - Results Result Diagrams: 06/24/19 05:09 06/24/19 05:09 Recent Labs: Laboratory Last Values WBC 6.9 Th/cmm (4.8-10.8) 06/24/19 05:09 RBC 3.60 Mil/cmm (3.80-5.20) L 06/24/19 05:09 Hgb 11.3 gm/dL (12-16) L 06/24/19 05:09 Hct 33.9 % (41.0-60) L 06/24/19 05:09 MCV 94.0 fl (81-100) 06/24/19 05:09 MCH 31.3 pg (27.0-31.0) H 06/24/19 05:09 MCHC Differential 33.3 pg (28.0-36.0) 06/24/19 05:09 RDW 12.6 % (11.5-20.0) 06/24/19 05:09 Plt Count 374 Th/cmm (150-400) 06/24/19 05:09 MPV 7.8 fl 06/24/19 05:09 Neutrophils % 54.0 % (40.0-80.0) 06/24/19 05:09 Lymphocytes % 32.6 % (20.0-50.0) 06/24/19 05:09 Monocytes % 6.9 % (2.0-10.0) 06/24/19 05:09 Eosinophils % 3.5 % (0.0-5.0) 06/24/19 05:09 Basophils % 3.0 % (0.0-2.0) H 06/24/19 05:09 Sodium 140 mEq/L (136-145) 06/24/19 05:09 Potassium 3.7 mEq/L (3.5-5.1) 06/24/19 05:09 Chloride 106 mEq/L (98-107) 06/24/19 05:09 Carbon Dioxide 27.3 mEq/L (21.0-31.0) 06/24/19 05:09 Anion Gap 10.4 (7.0-16.0) 06/24/19 05:09 BUN 7 mg/dL (7-25) 06/24/19 05:09 Creatinine 0.8 mg/dL (0.6-1.2) 06/24/19 05:09 Est GFR ( Amer) TNP 06/24/19 05:09 Est GFR (Non-Af Amer) TNP 06/24/19 05:09 BUN/Creatinine Ratio 8.8 06/24/19 05:09 Glucose 90 mg/dL (70-105) 06/24/19 05:09 Calcium 9.0 mg/dL (8.6-10.3) 06/24/19 05:09 Total Bilirubin 0.5 mg/dL (0.3-1.0) 06/24/19 05:09 AST 17 U/L (13-39) 06/24/19 05:09 ALT 15 U/L (7-52) 06/24/19 05:09 Alkaline Phosphatase 43 U/L (34-104) 06/24/19 05:09 Total Protein 6.4 gm/dL (6.0-8.3) 06/24/19 05:09 Albumin 3.4 gm/dL (3.7-5.3) L 06/24/19 05:09 Globulin 3.0 gm/dL 06/24/19 05:09 Albumin/Globulin Ratio 1.1 (1.0-1.8) 06/24/19 05:09 Triglycerides 78 mg/dL (<150) 06/24/19 05:09 Cholesterol 117 mg/dL (<200) 06/24/19 05:09 LDL Cholesterol Direct 67 mg/dL (75-193) L 06/24/19 05:09 HDL Cholesterol 37 mg/dL (23-92) 06/24/19 05:09 - Physical Exam Vitals and I&O: Vital Signs Temp 97.9 F 07/03/19 20:07 Pulse 97 07/03/19 20:07 Resp 20 07/03/19 20:07 BP 115/65 07/03/19 20:07 Pulse Ox 98 07/03/19 20:07 Intake & Output 07/03/19 07/03/19 07/04/19 06:59 18:59 06:59 Intake Total 240 Balance 240 Intake: Oral 240 Active Medications: Current Medications Acetaminophen (Tylenol) 650 mg PO Q4HR PRN PRN Reason: Mild Pain / Temp above 100 Stop: 08/22/19 16:30 Al Hydrox/Mg Hydrox/Simethicone (Maalox) 30 ml PO Q4HR PRN PRN Reason: GI DISTRESS Stop: 08/22/19 16:30 Amlodipine Besylate (Norvasc) 5 mg PO DAILY [facility] Stop: 08/23/19 08:59 Last Admin: 07/03/19 09:00 Dose: 5 mg Donepezil HCl (Aricept) 5 mg PO HS MISHA Stop: 08/22/19 20:59 Last Admin: 07/02/19 20:10 Dose: 5 mg Lactobacillus Rhamnosus (Culturelle 15b) 1 each PO DAILY [facility] Stop: 08/24/19 08:59 Last Admin: 07/03/19 09:00 Dose: 1 each Levothyroxine Sodium (Synthroid) 0.075 mg PO 0700 MISHA Stop: 08/23/19 06:59 Last Admin: 07/03/19 06:34 Dose: 0.075 mg Lorazepam (Ativan) 0.5 mg PO Q4HR PRN; Protocol PRN Reason: Agitation Stop: 07/23/19 16:30 Last Admin: 06/27/19 21:12 Dose: 0.5 mg Magnesium Hydroxide (Milk Of Magnesia) 30 ml PO HS PRN PRN Reason: Constipation Miscellaneous (Probiotic Screen) 1 ea MC PRN PRN PRN Reason: PROTOCOL Stop: 08/23/19 10:37 Multivitamins/Vitamin C (Theragran) 1 tab PO DAILY MISHA Stop: 08/23/19 08:59 Last Admin: 07/03/19 09:00 Dose: 1 tab Pantoprazole Sodium (Protonix) 40 mg PO QAM MISHA Stop: 08/23/19 08:59 Last Admin: 07/03/19 09:00 Dose: 40 mg Risperidone (Risperdal) 1 mg PO BID MISHA; Protocol Stop: 08/26/19 08:59 Last Admin: 07/03/19 17:44 Dose: 1 mg Zolpidem Tartrate (Ambien) 5 mg PO HS PRN PRN Reason: Insomnia Stop: 08/22/19 16:30 Last Admin: 06/27/19 21:12 Dose: 5 mg General: No acute distress HEENT: PERRLA Neck: Supple, JVD, Thyromegaly Cardiovascular: Regular rate, Normal S1, Normal S2 Lungs: Clear to auscultation Abdomen: Bowel sounds, Soft - Procedures Procedures: Procedures Procedure Code Date OTHER GROUP THERAPY 94.44 04/02/12 RECREATIONAL THERAPY 93.81 04/02/12 Assessment/Plan - Assessment Assessment: 1.HTN. 2.HYPOTHYROIDISM 3.DJD. 4.PSYCHOSIS - Plan Plan: continue current treatment Nutritional Asmnt/Malnutr-PDOC - Dietary Evaluation Malnutrition Findings (Please click <Entered> for more info): Nutritional Asmnt/Malnutrition Start: 06/25/19 10: 43 Text: Status: Active Freq: Protocol: Document 06/25/19 10:43 MMULHERN (Rec: 06/25/19 10:50 MMULHERN AMIE- FNS1) Nutritional Asmnt/Malnutrition Patient General Information Nutritional Screening Moderate Risk Diagnosis Psychosis NOS Pertinent Medical Hx/Surgical Hx HTN, Hypothyroidism, degenerative joint disease, psychosis Subjective Information Patient was admitted from [facility]. Patient in bed eating lunch at time of visit . Tolerating well. Current Diet Order/ Nutrition Support Pureed Cardiac Pertinent Medications maalox, Culturelle, synthroid, MOM, Theragran, Protonix Pertinent Labs (06/24) Albumin 3.4 Nutritional Hx/Data Height 1.68 m Height (Calculated Centimeters) 167.6 Current Weight (lbs) 57.606 kg Weight (Calculated Kilograms) 57.6 Weight (Calculated Grams) 34762.2 [place] Body Weight 130 % [place] Body Weight 97 Body Mass Index (BMI) 20.5 Recent Weight Change No Weight Status Approriate GI Symptoms GI Symptoms None Last BM none noted Difficult in: None Food Allergies No Cultural/Ethnic/Hinduism Belief none indicated Usual diet at home unknown Skin Integrity/Comment: Bhavin 15, Intact Current %PO Good (75-100%) Estimated Nutritional Goals BEE in Kcals: Using Current wt Calories/Kcals/Kg 25-30 kcal/kg using CBW 57.7kg Kcals Calculated ~5044-2403 kcal/day Protein: Using Current wt Protein g/k-1.2 gm/kg Protein Calculated ~60-70 gm/day Fluid: ml ~3737-4317 ml/day (1 ml/kcal) Nutritional Problem 1. Problem Problem No nutrition diagnosis at this time Intervention/Recommendation Comments Continue pureed cardiac diet as tolerated by patient. Assist with meals as needed. Expected Outcomes/Goals Expected Outcomes/Goals Oral intake >75% ofmeals, weight stable, nutrition related labs WNL, skin intact F/U LR 07/02
[2019-07-04] MEDS: Levothyroxine 0.075 Mg Tab PO SCH (06:56)
[2019-07-04] MEDS: Multivitamin Tab PO SCH (08:40)
[2019-07-04] MEDS: Pantoprazole 40 mg EC Tab PO SCH (08:41)
[2019-07-04] MEDS: Lactobacillus Rhamnosus GG 15 Billion CFU CAP.SPRINK PO SCH (08:41)
[2019-07-04] MEDS: risperiDONE 1 mg/mL 30 mL Bottle PO SCH ×2 (08:42→16:40)
--- NOTE | 2019-07-04 20:58 | Internal Medicine Prog Note ---
Internal Medicine Subjective - Subjective Service Date: 07/04/19 Patient seen and examined:: with staff (HE IS DOING WELL) Patient is:: awake, verbal, in bed, confused Per staff patient has:: no adverse event Internal Medicine Objective - Results Result Diagrams: 06/24/19 05:09 06/24/19 05:09 Recent Labs: Laboratory Last Values WBC 6.9 Th/cmm (4.8-10.8) 06/24/19 05:09 RBC 3.60 Mil/cmm (3.80-5.20) L 06/24/19 05:09 Hgb 11.3 gm/dL (12-16) L 06/24/19 05:09 Hct 33.9 % (41.0-60) L 06/24/19 05:09 MCV 94.0 fl (81-100) 06/24/19 05:09 MCH 31.3 pg (27.0-31.0) H 06/24/19 05:09 MCHC Differential 33.3 pg (28.0-36.0) 06/24/19 05:09 RDW 12.6 % (11.5-20.0) 06/24/19 05:09 Plt Count 374 Th/cmm (150-400) 06/24/19 05:09 MPV 7.8 fl 06/24/19 05:09 Neutrophils % 54.0 % (40.0-80.0) 06/24/19 05:09 Lymphocytes % 32.6 % (20.0-50.0) 06/24/19 05:09 Monocytes % 6.9 % (2.0-10.0) 06/24/19 05:09 Eosinophils % 3.5 % (0.0-5.0) 06/24/19 05:09 Basophils % 3.0 % (0.0-2.0) H 06/24/19 05:09 Sodium 140 mEq/L (136-145) 06/24/19 05:09 Potassium 3.7 mEq/L (3.5-5.1) 06/24/19 05:09 Chloride 106 mEq/L (98-107) 06/24/19 05:09 Carbon Dioxide 27.3 mEq/L (21.0-31.0) 06/24/19 05:09 Anion Gap 10.4 (7.0-16.0) 06/24/19 05:09 BUN 7 mg/dL (7-25) 06/24/19 05:09 Creatinine 0.8 mg/dL (0.6-1.2) 06/24/19 05:09 Est GFR ( Amer) TNP 06/24/19 05:09 Est GFR (Non-Af Amer) TNP 06/24/19 05:09 BUN/Creatinine Ratio 8.8 06/24/19 05:09 Glucose 90 mg/dL (70-105) 06/24/19 05:09 Calcium 9.0 mg/dL (8.6-10.3) 06/24/19 05:09 Total Bilirubin 0.5 mg/dL (0.3-1.0) 06/24/19 05:09 AST 17 U/L (13-39) 06/24/19 05:09 ALT 15 U/L (7-52) 06/24/19 05:09 Alkaline Phosphatase 43 U/L (34-104) 06/24/19 05:09 Total Protein 6.4 gm/dL (6.0-8.3) 06/24/19 05:09 Albumin 3.4 gm/dL (3.7-5.3) L 06/24/19 05:09 Globulin 3.0 gm/dL 06/24/19 05:09 Albumin/Globulin Ratio 1.1 (1.0-1.8) 06/24/19 05:09 Triglycerides 78 mg/dL (<150) 06/24/19 05:09 Cholesterol 117 mg/dL (<200) 06/24/19 05:09 LDL Cholesterol Direct 67 mg/dL (75-193) L 06/24/19 05:09 HDL Cholesterol 37 mg/dL (23-92) 06/24/19 05:09 - Physical Exam Vitals and I&O: Vital Signs Temp 98.8 F 07/04/19 20:17 Pulse 93 07/04/19 20:17 Resp 19 07/04/19 20:17 BP 118/58 07/04/19 20:17 Pulse Ox 93 07/04/19 20:17 Intake & Output 07/04/19 07/04/19 07/05/19 06:59 18:59 06:59 Intake Total 240 240 Balance 240 240 Intake: Oral 240 240 Other: # Voids 2 Active Medications: Current Medications Acetaminophen (Tylenol) 650 mg PO Q4HR PRN PRN Reason: Mild Pain / Temp above 100 Stop: 08/22/19 16:30 Al Hydrox/Mg Hydrox/Simethicone (Maalox) 30 ml PO Q4HR PRN PRN Reason: GI DISTRESS Stop: 08/22/19 16:30 Amlodipine Besylate (Norvasc) 5 mg PO DAILY [facility] Stop: 08/23/19 08:59 Last Admin: 07/04/19 08:40 Dose: 5 mg Donepezil HCl (Aricept) 10 mg PO HS MISHA Stop: 09/02/19 20:59 Lactobacillus Rhamnosus (Culturelle 15b) 1 each PO DAILY [facility]HA Stop: 08/24/19 08:59 Last Admin: 07/04/19 08:41 Dose: 1 each Levothyroxine Sodium (Synthroid) 0.075 mg PO 0700 MISHA Stop: 08/23/19 06:59 Last Admin: 07/04/19 06:56 Dose: 0.075 mg Lorazepam (Ativan) 0.5 mg PO Q4HR PRN; Protocol PRN Reason: Agitation Stop: 07/23/19 16:30 Last Admin: 06/27/19 21:12 Dose: 0.5 mg Magnesium Hydroxide (Milk Of Magnesia) 30 ml PO HS PRN PRN Reason: Constipation Miscellaneous (Probiotic Screen) 1 ea MC PRN PRN PRN Reason: PROTOCOL Stop: 08/23/19 10:37 Multivitamins/Vitamin C (Theragran) 1 tab PO DAILY M[facility]HA Stop: 08/23/19 08:59 Last Admin: 07/04/19 08:40 Dose: 1 tab Pantoprazole Sodium (Protonix) 40 mg PO QAM MISHA Stop: 08/23/19 08:59 Last Admin: 07/04/19 08:41 Dose: 40 mg Risperidone (Risperdal) 1 mg PO BID MISHA; Protocol Stop: 08/26/19 08:59 Last Admin: 07/04/19 16:40 Dose: 1 mg Zolpidem Tartrate (Ambien) 5 mg PO HS PRN PRN Reason: Insomnia Stop: 08/22/19 16:30 Last Admin: 07/03/19 21:19 Dose: 5 mg General: demented HEENT: NC/AT, PERRLA, EOMI, anicteric sclerae, throat clear Neck: Supple, No JVD, No thyromegaly, +2 carotid pulse wo bruit, No LAD, + JVD Lungs: CTAB Cardiovascular: RRR, Normal S1, Normal S2, without murmur Abdomen: non-tender, non-distended Extremities: clear Neurological: no change - Procedures Procedures: Procedures Procedure Code Date OTHER GROUP THERAPY 94.44 04/02/12 RECREATIONAL THERAPY 93.81 04/02/12 Internal Medicine Assmt/Plan - Assessment Assessment: 1.HTN. 2.HYPOTHYROIDISM 3.DJD. 4.PSYCHOSIS - Plan Plan: CONTINUE ON CURRENT MEDICATION AND DIET Nutritional Asmnt/Malnutr-PDOC - Dietary Evaluation Malnutrition Findings (Please click <Entered> for more info): Nutritional Asmnt/Malnutrition Start: 06/25/19 10: 43 Text: Status: Active Freq: Protocol: Document 06/25/19 10:43 POLINA (Rec: 06/25/19 10:50 POLINA HOLLOWAY- FNS1) Nutritional Asmnt/Malnutrition Patient General Information Nutritional Screening Moderate Risk Diagnosis Psychosis NOS Pertinent Medical Hx/Surgical Hx HTN, Hypothyroidism, degenerative joint disease, psychosis Subjective Information Patient was admitted from [facility]. Patient in bed eating lunch at time of visit . Tolerating well. Current Diet Order/ Nutrition Support Pureed Cardiac Pertinent Medications maalox, Culturelle, synthroid, MOM, Theragran, Protonix Pertinent Labs (06/24) Albumin 3.4 Nutritional Hx/Data Height 1.68 m Height (Calculated Centimeters) 167.6 Current Weight (lbs) 57.606 kg Weight (Calculated Kilograms) 57.6 Weight (Calculated Grams) 46378.2 [place] Body Weight 130 % [place] Body Weight 97 Body Mass Index (BMI) 20.5 Recent Weight Change No Weight Status Approriate GI Symptoms GI Symptoms None Last BM none noted Difficult in: None Food Allergies No Cultural/Ethnic/Bahai Belief none indicated Usual diet at home unknown Skin Integrity/Comment: Bhavin 15, Intact Current %PO Good (75-100%) Estimated Nutritional Goals BEE in Kcals: Using Current wt Calories/Kcals/Kg 25-30 kcal/kg using CBW 57.7kg Kcals Calculated ~1303-4966 kcal/day Protein: Using Current wt Protein g/k-1.2 gm/kg Protein Calculated ~60-70 gm/day Fluid: ml ~8021-6315 ml/day (1 ml/kcal) Nutritional Problem 1. Problem Problem No nutrition diagnosis at this time Intervention/Recommendation Comments Continue pureed cardiac diet as tolerated by patient. Assist with meals as needed. Expected Outcomes/Goals Expected Outcomes/Goals Oral intake >75% ofmeals, weight stable, nutrition related labs WNL, skin intact F/U LR 07/02
--- NOTE | 2019-07-05 01:53 | Progress Notes ---
DATE: 07/04/2019 SUBJECTIVE: Chart reviewed and the patient interviewed. Also discussed the patient's condition with the staff and reviewed the records and labs. The patient is still suspicious and is still guarded. The patient also is still forgetful and needs lots of redirections. The patient also is still cooperative and taking her medications, but she is having poor appetite and she is spitting out food. The patient has no explanation why she is spitting the food. At the same time, the patient continues to take Risperdal at a dose of 1 mg twice a day and Aricept 5 mg every day. ASSESSMENT: The patient is still depressed and confused and needs close observation. TREATMENT PLAN: We will continue to monitor her behavior and her condition closely. Also, we will increase Aricept to 10 mg every day. Also, we will continue to work on discharge plans and placement issue. I did call the patient's son last week and he has not answered me back yet. At the same time, we will continue to work on her discharge plans and placement issue. JOB# [id number]
[2019-07-05] MEDS: Levothyroxine 0.075 Mg Tab PO SCH (06:41)
--- NOTE | 2019-07-05 07:39 | Progress Notes ---
DATE: 07/05/2019 SUBJECTIVE: Chart reviewed and the patient interviewed. Also discussed the patient's condition with the staff and reviewed records and labs. The patient remains anxious and is selectively mute. The patient also is still depressed and guarded and withdrawn. The patient also is suspicious and paranoid and at times, spitting out food, but seems to be less than before since I increased her Aricept. Otherwise, the patient is compliant with taking her medications with no side effects. ASSESSMENT: The patient is still psychotic and agitated. TREATMENT PLAN: Continue to monitor her behavior and her condition closely. Also, continue to work on her ineffective coping. Also, I spoke with patient's daughter yesterday about placement issue and waiting to hear back from them and the patient's daughter is supposed to go to visit [facility] for placement. At the same time, we will continue monitoring her behavior and continue to follow up. JOB# [id number]
[2019-07-05] MEDS: Multivitamin Tab PO SCH (08:30)
[2019-07-05] MEDS: risperiDONE 1 mg/mL 30 mL Bottle PO SCH ×2 (08:30→16:50)
[2019-07-05] MEDS: Pantoprazole 40 mg EC Tab PO SCH (08:30)
[2019-07-05] MEDS: Lactobacillus Rhamnosus GG 15 Billion CFU CAP.SPRINK PO SCH (08:30)
--- NOTE | 2019-07-05 21:49 | Internal Medicine Prog Note ---
Internal Medicine Subjective - Subjective Service Date: 07/05/19 Patient seen and examined:: without staff (SHE IS DOING WELL) Patient is:: awake, verbal, in bed, confused Per staff patient has:: no adverse event Internal Medicine Objective - Results Result Diagrams: 06/24/19 05:09 06/24/19 05:09 Recent Labs: Laboratory Last Values WBC 6.9 Th/cmm (4.8-10.8) 06/24/19 05:09 RBC 3.60 Mil/cmm (3.80-5.20) L 06/24/19 05:09 Hgb 11.3 gm/dL (12-16) L 06/24/19 05:09 Hct 33.9 % (41.0-60) L 06/24/19 05:09 MCV 94.0 fl (81-100) 06/24/19 05:09 MCH 31.3 pg (27.0-31.0) H 06/24/19 05:09 MCHC Differential 33.3 pg (28.0-36.0) 06/24/19 05:09 RDW 12.6 % (11.5-20.0) 06/24/19 05:09 Plt Count 374 Th/cmm (150-400) 06/24/19 05:09 MPV 7.8 fl 06/24/19 05:09 Neutrophils % 54.0 % (40.0-80.0) 06/24/19 05:09 Lymphocytes % 32.6 % (20.0-50.0) 06/24/19 05:09 Monocytes % 6.9 % (2.0-10.0) 06/24/19 05:09 Eosinophils % 3.5 % (0.0-5.0) 06/24/19 05:09 Basophils % 3.0 % (0.0-2.0) H 06/24/19 05:09 Sodium 140 mEq/L (136-145) 06/24/19 05:09 Potassium 3.7 mEq/L (3.5-5.1) 06/24/19 05:09 Chloride 106 mEq/L (98-107) 06/24/19 05:09 Carbon Dioxide 27.3 mEq/L (21.0-31.0) 06/24/19 05:09 Anion Gap 10.4 (7.0-16.0) 06/24/19 05:09 BUN 7 mg/dL (7-25) 06/24/19 05:09 Creatinine 0.8 mg/dL (0.6-1.2) 06/24/19 05:09 Est GFR ( Amer) TNP 06/24/19 05:09 Est GFR (Non-Af Amer) TNP 06/24/19 05:09 BUN/Creatinine Ratio 8.8 06/24/19 05:09 Glucose 90 mg/dL (70-105) 06/24/19 05:09 Calcium 9.0 mg/dL (8.6-10.3) 06/24/19 05:09 Total Bilirubin 0.5 mg/dL (0.3-1.0) 06/24/19 05:09 AST 17 U/L (13-39) 06/24/19 05:09 ALT 15 U/L (7-52) 06/24/19 05:09 Alkaline Phosphatase 43 U/L (34-104) 06/24/19 05:09 Total Protein 6.4 gm/dL (6.0-8.3) 06/24/19 05:09 Albumin 3.4 gm/dL (3.7-5.3) L 06/24/19 05:09 Globulin 3.0 gm/dL 06/24/19 05:09 Albumin/Globulin Ratio 1.1 (1.0-1.8) 06/24/19 05:09 Triglycerides 78 mg/dL (<150) 06/24/19 05:09 Cholesterol 117 mg/dL (<200) 06/24/19 05:09 LDL Cholesterol Direct 67 mg/dL (75-193) L 06/24/19 05:09 HDL Cholesterol 37 mg/dL (23-92) 06/24/19 05:09 - Physical Exam Vitals and I&O: Vital Signs Temp 98 F 07/05/19 20:00 Pulse 103 07/05/19 20:00 Resp 18 07/05/19 20:00 BP 108/58 07/05/19 20:00 Pulse Ox 98 07/05/19 20:00 Intake & Output 07/05/19 07/05/19 07/06/19 06:59 18:59 06:59 Intake Total 240 1080 Balance 240 1080 Intake: Oral 240 1080 Other: # Voids 2 3 # Bowel Movements 0 Active Medications: Current Medications Acetaminophen (Tylenol) 650 mg PO Q4HR PRN PRN Reason: Mild Pain / Temp above 100 Stop: 08/22/19 16:30 Al Hydrox/Mg Hydrox/Simethicone (Maalox) 30 ml PO Q4HR PRN PRN Reason: GI DISTRESS Stop: 08/22/19 16:30 Amlodipine Besylate (Norvasc) 5 mg PO DAILY MISHA Stop: 08/23/19 08:59 Last Admin: 07/05/19 08:30 Dose: Not Given Donepezil HCl (Aricept) 10 mg PO HS MISHA Stop: 09/02/19 20:59 Last Admin: 07/05/19 21:08 Dose: 10 mg Lactobacillus Rhamnosus (Culturelle 15b) 1 each PO DAILY MISHA Stop: 08/24/19 08:59 Last Admin: 07/05/19 08:30 Dose: 1 each Levothyroxine Sodium (Synthroid) 0.075 mg PO 0700 MISHA Stop: 08/23/19 06:59 Last Admin: 07/05/19 06:41 Dose: 0.075 mg Lorazepam (Ativan) 0.5 mg PO Q4HR PRN; Protocol PRN Reason: Agitation Stop: 07/23/19 16:30 Last Admin: 06/27/19 21:12 Dose: 0.5 mg Magnesium Hydroxide (Milk Of Magnesia) 30 ml PO HS PRN PRN Reason: Constipation Miscellaneous (Probiotic Screen) 1 ea MC PRN PRN PRN Reason: PROTOCOL Stop: 08/23/19 10:37 Multivitamins/Vitamin C (Theragran) 1 tab PO DAILY MISHA Stop: 08/23/19 08:59 Last Admin: 07/05/19 08:30 Dose: 1 tab Pantoprazole Sodium (Protonix) 40 mg PO QAM MISHA Stop: 08/23/19 08:59 Last Admin: 07/05/19 08:30 Dose: 40 mg Risperidone (Risperdal) 1 mg PO BID MISHA; Protocol Stop: 08/26/19 08:59 Last Admin: 07/05/19 16:50 Dose: 1 mg Zolpidem Tartrate (Ambien) 5 mg PO HS PRN PRN Reason: Insomnia Stop: 08/22/19 16:30 Last Admin: 07/03/19 21:19 Dose: 5 mg General: demented HEENT: NC/AT, PERRLA, EOMI, anicteric sclerae, throat clear Neck: Supple, No JVD, No thyromegaly, +2 carotid pulse wo bruit, No LAD, + JVD Lungs: CTAB Cardiovascular: RRR, Normal S1, Normal S2, without murmur Abdomen: non-tender, non-distended Extremities: clear Neurological: no change - Procedures Procedures: Procedures Procedure Code Date OTHER GROUP THERAPY 94.44 04/02/12 RECREATIONAL THERAPY 93.81 04/02/12 Internal Medicine Assmt/Plan - Assessment Assessment: 1.HTN. 2.HYPOTHYROIDISM 3.DJD. 4.PSYCHOSIS - Plan Plan: CONTINUE ON CURRENT MEDICATION AND DIET Nutritional Asmnt/Malnutr-PDOC - Dietary Evaluation Malnutrition Findings (Please click <Entered> for more info): Nutritional Asmnt/Malnutrition Start: 06/25/19 10: 43 Text: Status: Active Freq: Protocol: Document 06/25/19 10:43 POLINA (Rec: 06/25/19 10:50 MMMICKIE HOLLOWAY- [email or web address]) Nutritional Asmnt/Malnutrition Patient General Information Nutritional Screening Moderate Risk Diagnosis Psychosis NOS Pertinent Medical Hx/Surgical Hx HTN, Hypothyroidism, degenerative joint disease, psychosis Subjective Information Patient was admitted from [facility]. Patient in bed eating lunch at time of visit . Tolerating well. Current Diet Order/ Nutrition Support Pureed Cardiac Pertinent Medications maalox, Culturelle, synthroid, MOM, Theragran, Protonix Pertinent Labs (06/24) Albumin 3.4 Nutritional Hx/Data Height 1.68 m Height (Calculated Centimeters) 167.6 Current Weight (lbs) 57.606 kg Weight (Calculated Kilograms) 57.6 Weight (Calculated Grams) 16571.2 [place] Body Weight 130 % [place] Body Weight 97 Body Mass Index (BMI) 20.5 Recent Weight Change No Weight Status Approriate GI Symptoms GI Symptoms None Last BM none noted Difficult in: None Food Allergies No Cultural/Ethnic/Yarsani Belief none indicated Usual diet at home unknown Skin Integrity/Comment: Bhavin 15, Intact Current %PO Good (75-100%) Estimated Nutritional Goals BEE in Kcals: Using Current wt Calories/Kcals/Kg 25-30 kcal/kg using CBW 57.7kg Kcals Calculated ~1891-4941 kcal/day Protein: Using Current wt Protein g/k-1.2 gm/kg Protein Calculated ~60-70 gm/day Fluid: ml ~1569-5761 ml/day (1 ml/kcal) Nutritional Problem 1. Problem Problem No nutrition diagnosis at this time Intervention/Recommendation Comments Continue pureed cardiac diet as tolerated by patient. Assist with meals as needed. Expected Outcomes/Goals Expected Outcomes/Goals Oral intake >75% ofmeals, weight stable, nutrition related labs WNL, skin intact F/U LR 07/02
[2019-07-06] MEDS: Levothyroxine 0.075 Mg Tab PO SCH (07:00)
[2019-07-06] MEDS: risperiDONE 1 mg/mL 30 mL Bottle PO SCH ×2 (09:01→17:51)
[2019-07-06] MEDS: Pantoprazole 40 mg EC Tab PO SCH (09:02)
[2019-07-06] MEDS: Lactobacillus Rhamnosus GG 15 Billion CFU CAP.SPRINK PO SCH (09:02)
[2019-07-06] MEDS: Multivitamin Tab PO SCH (09:02)
--- NOTE | 2019-07-06 09:13 | Internal Medicine Prog Note ---
Internal Medicine Subjective - Subjective Service Date: 07/06/19 Patient seen and examined:: with staff (SHE IS DOING WELL) Patient is:: awake, verbal, in bed, confused Per staff patient has:: no adverse event Internal Medicine Objective - Results Result Diagrams: 06/24/19 05:09 06/24/19 05:09 Recent Labs: Laboratory Last Values WBC 6.9 Th/cmm (4.8-10.8) 06/24/19 05:09 RBC 3.60 Mil/cmm (3.80-5.20) L 06/24/19 05:09 Hgb 11.3 gm/dL (12-16) L 06/24/19 05:09 Hct 33.9 % (41.0-60) L 06/24/19 05:09 MCV 94.0 fl (81-100) 06/24/19 05:09 MCH 31.3 pg (27.0-31.0) H 06/24/19 05:09 MCHC Differential 33.3 pg (28.0-36.0) 06/24/19 05:09 RDW 12.6 % (11.5-20.0) 06/24/19 05:09 Plt Count 374 Th/cmm (150-400) 06/24/19 05:09 MPV 7.8 fl 06/24/19 05:09 Neutrophils % 54.0 % (40.0-80.0) 06/24/19 05:09 Lymphocytes % 32.6 % (20.0-50.0) 06/24/19 05:09 Monocytes % 6.9 % (2.0-10.0) 06/24/19 05:09 Eosinophils % 3.5 % (0.0-5.0) 06/24/19 05:09 Basophils % 3.0 % (0.0-2.0) H 06/24/19 05:09 Sodium 140 mEq/L (136-145) 06/24/19 05:09 Potassium 3.7 mEq/L (3.5-5.1) 06/24/19 05:09 Chloride 106 mEq/L (98-107) 06/24/19 05:09 Carbon Dioxide 27.3 mEq/L (21.0-31.0) 06/24/19 05:09 Anion Gap 10.4 (7.0-16.0) 06/24/19 05:09 BUN 7 mg/dL (7-25) 06/24/19 05:09 Creatinine 0.8 mg/dL (0.6-1.2) 06/24/19 05:09 Est GFR ( Amer) TNP 06/24/19 05:09 Est GFR (Non-Af Amer) TNP 06/24/19 05:09 BUN/Creatinine Ratio 8.8 06/24/19 05:09 Glucose 90 mg/dL (70-105) 06/24/19 05:09 Calcium 9.0 mg/dL (8.6-10.3) 06/24/19 05:09 Total Bilirubin 0.5 mg/dL (0.3-1.0) 06/24/19 05:09 AST 17 U/L (13-39) 06/24/19 05:09 ALT 15 U/L (7-52) 06/24/19 05:09 Alkaline Phosphatase 43 U/L (34-104) 06/24/19 05:09 Total Protein 6.4 gm/dL (6.0-8.3) 06/24/19 05:09 Albumin 3.4 gm/dL (3.7-5.3) L 06/24/19 05:09 Globulin 3.0 gm/dL 06/24/19 05:09 Albumin/Globulin Ratio 1.1 (1.0-1.8) 06/24/19 05:09 Triglycerides 78 mg/dL (<150) 06/24/19 05:09 Cholesterol 117 mg/dL (<200) 06/24/19 05:09 LDL Cholesterol Direct 67 mg/dL (75-193) L 06/24/19 05:09 HDL Cholesterol 37 mg/dL (23-92) 06/24/19 05:09 - Physical Exam Vitals and I&O: Vital Signs Temp 98.1 F 07/06/19 06:33 Pulse 92 07/06/19 09:02 Resp 18 07/06/19 06:33 BP 128/63 07/06/19 09:02 Pulse Ox 96 07/06/19 06:33 Intake & Output 07/05/19 07/06/19 07/06/19 18:59 06:59 18:59 Intake Total 1080 120 Balance 1080 120 Intake: Oral 1080 120 Other: # Voids 3 3 # Bowel Movements 0 Active Medications: Current Medications Acetaminophen (Tylenol) 650 mg PO Q4HR PRN PRN Reason: Mild Pain / Temp above 100 Stop: 08/22/19 16:30 Al Hydrox/Mg Hydrox/Simethicone (Maalox) 30 ml PO Q4HR PRN PRN Reason: GI DISTRESS Stop: 08/22/19 16:30 Amlodipine Besylate (Norvasc) 5 mg PO DAILY MISHA Stop: 08/23/19 08:59 Last Admin: 07/06/19 09:02 Dose: 5 mg Donepezil HCl (Aricept) 10 mg PO HS MISHA Stop: 09/02/19 20:59 Last Admin: 07/05/19 21:08 Dose: 10 mg Lactobacillus Rhamnosus (Culturelle 15b) 1 each PO DAILY MISHA Stop: 08/24/19 08:59 Last Admin: 07/06/19 09:02 Dose: 1 each Levothyroxine Sodium (Synthroid) 0.075 mg PO 0700 MISHA Stop: 08/23/19 06:59 Last Admin: 07/06/19 07:00 Dose: Not Given Lorazepam (Ativan) 0.5 mg PO Q4HR PRN; Protocol PRN Reason: Agitation Stop: 07/23/19 16:30 Last Admin: 06/27/19 21:12 Dose: 0.5 mg Magnesium Hydroxide (Milk Of Magnesia) 30 ml PO HS PRN PRN Reason: Constipation Miscellaneous (Probiotic Screen) 1 ea MC PRN PRN PRN Reason: PROTOCOL Stop: 08/23/19 10:37 Multivitamins/Vitamin C (Theragran) 1 tab PO DAILY MISHA Stop: 08/23/19 08:59 Last Admin: 07/06/19 09:02 Dose: 1 tab Pantoprazole Sodium (Protonix) 40 mg PO QAM MISHA Stop: 08/23/19 08:59 Last Admin: 07/06/19 09:02 Dose: 40 mg Risperidone (Risperdal) 1 mg PO BID MISHA; Protocol Stop: 08/26/19 08:59 Last Admin: 07/06/19 09:01 Dose: 1 mg Zolpidem Tartrate (Ambien) 5 mg PO HS PRN PRN Reason: Insomnia Stop: 08/22/19 16:30 Last Admin: 07/03/19 21:19 Dose: 5 mg General: demented HEENT: NC/AT, PERRLA, EOMI, anicteric sclerae, throat clear Neck: Supple, No JVD, No thyromegaly, +2 carotid pulse wo bruit, No LAD, + JVD Lungs: CTAB Cardiovascular: RRR, Normal S1, Normal S2, without murmur Abdomen: non-tender, non-distended Extremities: clear Neurological: no change - Procedures Procedures: Procedures Procedure Code Date OTHER GROUP THERAPY 94.44 04/02/12 RECREATIONAL THERAPY 93.81 04/02/12 Internal Medicine Assmt/Plan - Assessment Assessment: 1.HTN. 2.HYPOTHYROIDISM 3.DJD. 4.PSYCHOSIS - Plan Plan: CONTINUE ON CURRENT MEDICATION AND DIET Nutritional Asmnt/Malnutr-PDOC - Dietary Evaluation Malnutrition Findings (Please click <Entered> for more info): Nutritional Asmnt/Malnutrition Start: 06/25/19 10: 43 Text: Status: Active Freq: Protocol: Document 06/25/19 10:43 POLINA (Rec: 06/25/19 10:50 MMMICKIE HOLLOWAY- [email or web address]) Nutritional Asmnt/Malnutrition Patient General Information Nutritional Screening Moderate Risk Diagnosis Psychosis NOS Pertinent Medical Hx/Surgical Hx HTN, Hypothyroidism, degenerative joint disease, psychosis Subjective Information Patient was admitted from [facility]. Patient in bed eating lunch at time of visit . Tolerating well. Current Diet Order/ Nutrition Support Pureed Cardiac Pertinent Medications maalox, Culturelle, synthroid, MOM, Theragran, Protonix Pertinent Labs (06/24) Albumin 3.4 Nutritional Hx/Data Height 1.68 m Height (Calculated Centimeters) 167.6 Current Weight (lbs) 57.606 kg Weight (Calculated Kilograms) 57.6 Weight (Calculated Grams) 16921.2 [place] Body Weight 130 % [place] Body Weight 97 Body Mass Index (BMI) 20.5 Recent Weight Change No Weight Status Approriate GI Symptoms GI Symptoms None Last BM none noted Difficult in: None Food Allergies No Cultural/Ethnic/Worship Belief none indicated Usual diet at home unknown Skin Integrity/Comment: Bhavin 15, Intact Current %PO Good (75-100%) Estimated Nutritional Goals BEE in Kcals: Using Current wt Calories/Kcals/Kg 25-30 kcal/kg using CBW 57.7kg Kcals Calculated ~1586-7467 kcal/day Protein: Using Current wt Protein g/k-1.2 gm/kg Protein Calculated ~60-70 gm/day Fluid: ml ~9358-3217 ml/day (1 ml/kcal) Nutritional Problem 1. Problem Problem No nutrition diagnosis at this time Intervention/Recommendation Comments Continue pureed cardiac diet as tolerated by patient. Assist with meals as needed. Expected Outcomes/Goals Expected Outcomes/Goals Oral intake >75% ofmeals, weight stable, nutrition related labs WNL, skin intact F/U LR 07/02
--- NOTE | 2019-07-07 00:16 | Progress Notes ---
DATE: 07/06/2019 SUBJECTIVE: The patient in the hospital, transferred from [place], agitation and aggressive behaviors, bizarre behaviors, altered. On [id number], the patient is refusing to speak with me. Apparently when she got here, she was doing bizarre things, spilling water on foods, spitting and biting people for no reason, unable to really assess at this time. The patient refusing per Dr. Blas who saw the patient yesterday, selectively mute, anxious, depressed, ongoing behaviors, but less ongoing psychotic behaviors, agitation. Medications were noted. Vitals were reviewed. We will continue Risperdal, bizarre behaviors ongoing. [facility]# [id number]
[2019-07-07] MEDS: Levothyroxine 0.075 Mg Tab PO SCH (06:54)
--- NOTE | 2019-07-07 07:45 | Progress Notes ---
DATE: SUBJECTIVE: Chart reviewed and the patient interviewed. Also discussed the patient's condition with the staff and reviewed records and labs. The patient is withdrawn and depressed. The patient also is still guarded. The patient also is interacting minimally with others and today the patient seems to be slightly sedated. Otherwise, the patient is compliant with taking her medications with no side effects of medications except the sedation. Discussed with the patient's daughter about placement issue and the possibility of placement in [place] re[facility] and waiting to hear from her. At the same time, we will try to contact them again today and at the same time, we will continue to follow up. Also, we will decrease Risperdal to 0.5 mg twice a day and continue to follow up. JOB# [id number]
[2019-07-07] MEDS: Multivitamin Tab PO SCH (09:14)
[2019-07-07] MEDS: Pantoprazole 40 mg EC Tab PO SCH (09:14)
[2019-07-07] MEDS: Lactobacillus Rhamnosus GG 15 Billion CFU CAP.SPRINK PO SCH (09:14)
[2019-07-07] MEDS: risperiDONE 1 mg/mL 30 mL Bottle PO SCH ×2 (09:15→16:57)
--- NOTE | 2019-07-07 17:25 | Internal Medicine Prog Note ---
Internal Medicine Subjective - Subjective Service Date: 07/07/19 Patient seen and examined:: with staff (SHE IS DOING WELL) Patient is:: awake, verbal, in bed, confused Per staff patient has:: no adverse event Internal Medicine Objective - Results Result Diagrams: 06/24/19 05:09 06/24/19 05:09 Recent Labs: Laboratory Last Values WBC 6.9 Th/cmm (4.8-10.8) 06/24/19 05:09 RBC 3.60 Mil/cmm (3.80-5.20) L 06/24/19 05:09 Hgb 11.3 gm/dL (12-16) L 06/24/19 05:09 Hct 33.9 % (41.0-60) L 06/24/19 05:09 MCV 94.0 fl (81-100) 06/24/19 05:09 MCH 31.3 pg (27.0-31.0) H 06/24/19 05:09 MCHC Differential 33.3 pg (28.0-36.0) 06/24/19 05:09 RDW 12.6 % (11.5-20.0) 06/24/19 05:09 Plt Count 374 Th/cmm (150-400) 06/24/19 05:09 MPV 7.8 fl 06/24/19 05:09 Neutrophils % 54.0 % (40.0-80.0) 06/24/19 05:09 Lymphocytes % 32.6 % (20.0-50.0) 06/24/19 05:09 Monocytes % 6.9 % (2.0-10.0) 06/24/19 05:09 Eosinophils % 3.5 % (0.0-5.0) 06/24/19 05:09 Basophils % 3.0 % (0.0-2.0) H 06/24/19 05:09 Sodium 140 mEq/L (136-145) 06/24/19 05:09 Potassium 3.7 mEq/L (3.5-5.1) 06/24/19 05:09 Chloride 106 mEq/L (98-107) 06/24/19 05:09 Carbon Dioxide 27.3 mEq/L (21.0-31.0) 06/24/19 05:09 Anion Gap 10.4 (7.0-16.0) 06/24/19 05:09 BUN 7 mg/dL (7-25) 06/24/19 05:09 Creatinine 0.8 mg/dL (0.6-1.2) 06/24/19 05:09 Est GFR ( Amer) TNP 06/24/19 05:09 Est GFR (Non-Af Amer) TNP 06/24/19 05:09 BUN/Creatinine Ratio 8.8 06/24/19 05:09 Glucose 90 mg/dL (70-105) 06/24/19 05:09 Calcium 9.0 mg/dL (8.6-10.3) 06/24/19 05:09 Total Bilirubin 0.5 mg/dL (0.3-1.0) 06/24/19 05:09 AST 17 U/L (13-39) 06/24/19 05:09 ALT 15 U/L (7-52) 06/24/19 05:09 Alkaline Phosphatase 43 U/L (34-104) 06/24/19 05:09 Total Protein 6.4 gm/dL (6.0-8.3) 06/24/19 05:09 Albumin 3.4 gm/dL (3.7-5.3) L 06/24/19 05:09 Globulin 3.0 gm/dL 06/24/19 05:09 Albumin/Globulin Ratio 1.1 (1.0-1.8) 06/24/19 05:09 Triglycerides 78 mg/dL (<150) 06/24/19 05:09 Cholesterol 117 mg/dL (<200) 06/24/19 05:09 LDL Cholesterol Direct 67 mg/dL (75-193) L 06/24/19 05:09 HDL Cholesterol 37 mg/dL (23-92) 06/24/19 05:09 - Physical Exam Vitals and I&O: Vital Signs Temp 97.7 F 07/07/19 14:00 Pulse 90 07/07/19 14:00 Resp 20 07/07/19 14:00 BP 116/68 07/07/19 14:00 Pulse Ox 95 07/07/19 14:00 Intake & Output 07/06/19 07/07/19 07/07/19 18:59 06:59 18:59 Intake Total 950 120 Balance 950 120 Intake: Oral 950 120 Other: # Voids 3 Active Medications: Current Medications Acetaminophen (Tylenol) 650 mg PO Q4HR PRN PRN Reason: Mild Pain / Temp above 100 Stop: 08/22/19 16:30 Al Hydrox/Mg Hydrox/Simethicone (Maalox) 30 ml PO Q4HR PRN PRN Reason: GI DISTRESS Stop: 08/22/19 16:30 Amlodipine Besylate (Norvasc) 5 mg PO DAILY MISHA Stop: 08/23/19 08:59 Last Admin: 07/07/19 09:14 Dose: 5 mg Donepezil HCl (Aricept) 10 mg PO HS MISHA Stop: 09/02/19 20:59 Last Admin: 07/06/19 22:09 Dose: Not Given Lactobacillus Rhamnosus (Culturelle 15b) 1 each PO DAILY MISHA Stop: 08/24/19 08:59 Last Admin: 07/07/19 09:14 Dose: 1 each Levothyroxine Sodium (Synthroid) 0.075 mg PO 0700 MISHA Stop: 08/23/19 06:59 Last Admin: 07/07/19 06:54 Dose: 0.075 mg Lorazepam (Ativan) 0.5 mg PO Q4HR PRN; Protocol PRN Reason: Agitation Stop: 07/23/19 16:30 Last Admin: 06/27/19 21:12 Dose: 0.5 mg Magnesium Hydroxide (Milk Of Magnesia) 30 ml PO HS PRN PRN Reason: Constipation Miscellaneous (Probiotic Screen) 1 ea MC PRN PRN PRN Reason: PROTOCOL Stop: 08/23/19 10:37 Multivitamins/Vitamin C (Theragran) 1 tab PO DAILY MISHA Stop: 08/23/19 08:59 Last Admin: 07/07/19 09:14 Dose: 1 tab Pantoprazole Sodium (Protonix) 40 mg PO QAM MISHA Stop: 08/23/19 08:59 Last Admin: 07/07/19 09:14 Dose: 40 mg Risperidone (Risperdal) 0.5 mg PO BID MISHA; Protocol Stop: 09/05/19 08:59 Last Admin: 07/07/19 16:57 Dose: 0.5 mg Zolpidem Tartrate (Ambien) 5 mg PO HS PRN PRN Reason: Insomnia Stop: 08/22/19 16:30 Last Admin: 07/03/19 21:19 Dose: 5 mg General: demented HEENT: NC/AT, PERRLA, EOMI, anicteric sclerae, throat clear Neck: Supple, No JVD, No thyromegaly, +2 carotid pulse wo bruit, No LAD, + JVD Lungs: CTAB Cardiovascular: RRR, Normal S1, Normal S2, without murmur Abdomen: non-tender, non-distended Extremities: clear Neurological: no change - Procedures Procedures: Procedures Procedure Code Date OTHER GROUP THERAPY 94.44 04/02/12 RECREATIONAL THERAPY 93.81 04/02/12 Internal Medicine Assmt/Plan - Assessment Assessment: 1.HTN. 2.HYPOTHYROIDISM 3.DJD. 4.PSYCHOSIS - Plan Plan: CONTINUE ON CURRENT MEDICATION AND DIET Nutritional Asmnt/Malnutr-PDOC - Dietary Evaluation Malnutrition Findings (Please click <Entered> for more info): Nutritional Asmnt/Malnutrition Start: 06/25/19 10: 43 Text: Status: Active Freq: Protocol: Document 06/25/19 10:43 POLINA (Rec: 06/25/19 10:50 MMMICKIE AMIE- FNS1) Nutritional Asmnt/Malnutrition Patient General Information Nutritional Screening Moderate Risk Diagnosis Psychosis NOS Pertinent Medical Hx/Surgical Hx HTN, Hypothyroidism, degenerative joint disease, psychosis Subjective Information Patient was admitted from [facility]. Patient in bed eating lunch at time of visit . Tolerating well. Current Diet Order/ Nutrition Support Pureed Cardiac Pertinent Medications maalox, Culturelle, synthroid, MOM, Theragran, Protonix Pertinent Labs (06/24) Albumin 3.4 Nutritional Hx/Data Height 1.68 m Height (Calculated Centimeters) 167.6 Current Weight (lbs) 57.606 kg Weight (Calculated Kilograms) 57.6 Weight (Calculated Grams) 89130.2 [place] Body Weight 130 % [place] Body Weight 97 Body Mass Index (BMI) 20.5 Recent Weight Change No Weight Status Approriate GI Symptoms GI Symptoms None Last BM none noted Difficult in: None Food Allergies No Cultural/Ethnic/Confucianist Belief none indicated Usual diet at home unknown Skin Integrity/Comment: Bhavin 15, Intact Current %PO Good (75-100%) Estimated Nutritional Goals BEE in Kcals: Using Current wt Calories/Kcals/Kg 25-30 kcal/kg using CBW 57.7kg Kcals Calculated ~7798-0086 kcal/day Protein: Using Current wt Protein g/k-1.2 gm/kg Protein Calculated ~60-70 gm/day Fluid: ml ~7589-5690 ml/day (1 ml/kcal) Nutritional Problem 1. Problem Problem No nutrition diagnosis at this time Intervention/Recommendation Comments Continue pureed cardiac diet as tolerated by patient. Assist with meals as needed. Expected Outcomes/Goals Expected Outcomes/Goals Oral intake >75% ofmeals, weight stable, nutrition related labs WNL, skin intact F/U LR 07/02
[2019-07-08] MEDS: Levothyroxine 0.075 Mg Tab PO SCH (06:12)
--- NOTE | 2019-07-08 07:44 | Progress Notes ---
DATE: 07/08/2019 SUBJECTIVE: Chart reviewed and the patient interviewed. Also discussed the patient's condition with the staff and reviewed records and labs. The patient is still confused and anxious. The patient also is still withdrawn and interacting minimally with others. The patient also is still unable to answer questions coherently and still needs lots of redirections. Otherwise, the patient is compliant with taking her medications with no side effects of medications. ASSESSMENT: The patient is still confused and needs placement and considered to be gravely disabled. TREATMENT PLAN: Continue to monitor her behavior and her condition closely, also continue adjusting psychotropic medications, also working on discharge plans and placement issue. JOB# [id number]
[2019-07-08] MEDS: risperiDONE 1 mg/mL 30 mL Bottle PO SCH ×2 (09:28→17:58)
[2019-07-08] MEDS: Pantoprazole 40 mg EC Tab PO SCH (09:31)
[2019-07-08] MEDS: Multivitamin Tab PO SCH (09:31)
[2019-07-08] MEDS: Lactobacillus Rhamnosus GG 15 Billion CFU CAP.SPRINK PO SCH (09:32)
--- NOTE | 2019-07-08 18:45 | Internal Medicine Prog Note ---
Internal Medicine Subjective - Subjective Service Date: 07/08/19 Patient seen and examined:: without staff (SHE FEELS WELL) Patient is:: awake, verbal, in bed, confused Per staff patient has:: no adverse event Internal Medicine Objective - Results Result Diagrams: 06/24/19 05:09 06/24/19 05:09 Recent Labs: Laboratory Last Values WBC 6.9 Th/cmm (4.8-10.8) 06/24/19 05:09 RBC 3.60 Mil/cmm (3.80-5.20) L 06/24/19 05:09 Hgb 11.3 gm/dL (12-16) L 06/24/19 05:09 Hct 33.9 % (41.0-60) L 06/24/19 05:09 MCV 94.0 fl (81-100) 06/24/19 05:09 MCH 31.3 pg (27.0-31.0) H 06/24/19 05:09 MCHC Differential 33.3 pg (28.0-36.0) 06/24/19 05:09 RDW 12.6 % (11.5-20.0) 06/24/19 05:09 Plt Count 374 Th/cmm (150-400) 06/24/19 05:09 MPV 7.8 fl 06/24/19 05:09 Neutrophils % 54.0 % (40.0-80.0) 06/24/19 05:09 Lymphocytes % 32.6 % (20.0-50.0) 06/24/19 05:09 Monocytes % 6.9 % (2.0-10.0) 06/24/19 05:09 Eosinophils % 3.5 % (0.0-5.0) 06/24/19 05:09 Basophils % 3.0 % (0.0-2.0) H 06/24/19 05:09 Sodium 140 mEq/L (136-145) 06/24/19 05:09 Potassium 3.7 mEq/L (3.5-5.1) 06/24/19 05:09 Chloride 106 mEq/L (98-107) 06/24/19 05:09 Carbon Dioxide 27.3 mEq/L (21.0-31.0) 06/24/19 05:09 Anion Gap 10.4 (7.0-16.0) 06/24/19 05:09 BUN 7 mg/dL (7-25) 06/24/19 05:09 Creatinine 0.8 mg/dL (0.6-1.2) 06/24/19 05:09 Est GFR ( Amer) TNP 06/24/19 05:09 Est GFR (Non-Af Amer) TNP 06/24/19 05:09 BUN/Creatinine Ratio 8.8 06/24/19 05:09 Glucose 90 mg/dL (70-105) 06/24/19 05:09 Calcium 9.0 mg/dL (8.6-10.3) 06/24/19 05:09 Total Bilirubin 0.5 mg/dL (0.3-1.0) 06/24/19 05:09 AST 17 U/L (13-39) 06/24/19 05:09 ALT 15 U/L (7-52) 06/24/19 05:09 Alkaline Phosphatase 43 U/L (34-104) 06/24/19 05:09 Total Protein 6.4 gm/dL (6.0-8.3) 06/24/19 05:09 Albumin 3.4 gm/dL (3.7-5.3) L 06/24/19 05:09 Globulin 3.0 gm/dL 06/24/19 05:09 Albumin/Globulin Ratio 1.1 (1.0-1.8) 06/24/19 05:09 Triglycerides 78 mg/dL (<150) 06/24/19 05:09 Cholesterol 117 mg/dL (<200) 06/24/19 05:09 LDL Cholesterol Direct 67 mg/dL (75-193) L 06/24/19 05:09 HDL Cholesterol 37 mg/dL (23-92) 06/24/19 05:09 - Physical Exam Vitals and I&O: Vital Signs Temp 96.7 F 07/08/19 17:06 Pulse 84 07/08/19 17:06 Resp 20 07/08/19 17:06 BP 104/57 07/08/19 17:06 Pulse Ox 96 07/08/19 17:06 Intake & Output 07/07/19 07/08/19 07/08/19 18:59 06:59 18:59 Intake Total 960 900 Balance 960 900 Intake: Oral 960 900 Other: # Voids 3 4 # Bowel Movements 1 0 Active Medications: Current Medications Acetaminophen (Tylenol) 650 mg PO Q4HR PRN PRN Reason: Mild Pain / Temp above 100 Stop: 08/22/19 16:30 Al Hydrox/Mg Hydrox/Simethicone (Maalox) 30 ml PO Q4HR PRN PRN Reason: GI DISTRESS Stop: 08/22/19 16:30 Amlodipine Besylate (Norvasc) 5 mg PO DAILY [facility] Stop: 08/23/19 08:59 Last Admin: 07/08/19 09:30 Dose: 5 mg Donepezil HCl (Aricept) 10 mg PO HS [facility] Stop: 09/02/19 20:59 Last Admin: 07/07/19 20:32 Dose: 10 mg Lactobacillus Rhamnosus (Culturelle 15b) 1 each PO DAILY [facility] Stop: 08/24/19 08:59 Last Admin: 07/08/19 09:32 Dose: 1 each Levothyroxine Sodium (Synthroid) 0.075 mg PO 0700 [facility] Stop: 08/23/19 06:59 Last Admin: 07/08/19 06:12 Dose: 0.075 mg Magnesium Hydroxide (Milk Of Magnesia) 30 ml PO HS PRN PRN Reason: Constipation Miscellaneous (Probiotic Screen) 1 ea MC PRN PRN PRN Reason: PROTOCOL Stop: 08/23/19 10:37 Multivitamins/Vitamin C (Theragran) 1 tab PO DAILY [facility] Stop: 08/23/19 08:59 Last Admin: 07/08/19 09:31 Dose: 1 tab Pantoprazole Sodium (Protonix) 40 mg PO QAM [facility] Stop: 08/23/19 08:59 Last Admin: 07/08/19 09:31 Dose: 40 mg Risperidone (Risperdal) 0.5 mg PO BID [facility]; Protocol Stop: 09/05/19 08:59 Last Admin: 07/08/19 17:58 Dose: 0.5 mg General: demented HEENT: NC/AT, PERRLA, EOMI, anicteric sclerae, throat clear Neck: Supple, No JVD, No thyromegaly, +2 carotid pulse wo bruit, No LAD, + JVD Lungs: CTAB Cardiovascular: RRR, Normal S1, Normal S2, without murmur Abdomen: non-tender, non-distended Extremities: clear Neurological: no change - Procedures Procedures: Procedures Procedure Code Date OTHER GROUP THERAPY 94.44 04/02/12 RECREATIONAL THERAPY 93.81 04/02/12 Internal Medicine Assmt/Plan - Assessment Assessment: 1.HTN. 2.HYPOTHYROIDISM 3.DJD. 4.PSYCHOSIS - Plan Plan: CONTINUE ON CURRENT MEDICATION AND DIET Nutritional Asmnt/Malnutr-PDOC - Dietary Evaluation Malnutrition Findings (Please click <Entered> for more info): Nutritional Asmnt/Malnutrition Start: 06/25/19 10: 43 Text: Status: Active Freq: Protocol: Document 06/25/19 10:43 MMULHERN (Rec: 06/25/19 10:50 MMULHERN AMIE- FNS1) Nutritional Asmnt/Malnutrition Patient General Information Nutritional Screening Moderate Risk Diagnosis Psychosis NOS Pertinent Medical Hx/Surgical Hx HTN, Hypothyroidism, degenerative joint disease, psychosis Subjective Information Patient was admitted from [facility]. Patient in bed eating lunch at time of visit . Tolerating well. Current Diet Order/ Nutrition Support Pureed Cardiac Pertinent Medications maalox, Culturelle, synthroid, MOM, Theragran, Protonix Pertinent Labs (06/24) Albumin 3.4 Nutritional Hx/Data Height 1.68 m Height (Calculated Centimeters) 167.6 Current Weight (lbs) 57.606 kg Weight (Calculated Kilograms) 57.6 Weight (Calculated Grams) 73936.2 [place] Body Weight 130 % [place] Body Weight 97 Body Mass Index (BMI) 20.5 Recent Weight Change No Weight Status Approriate GI Symptoms GI Symptoms None Last BM none noted Difficult in: None Food Allergies No Cultural/Ethnic/Congregational Belief none indicated Usual diet at home unknown Skin Integrity/Comment: Bhavin 15, Intact Current %PO Good (75-100%) Estimated Nutritional Goals BEE in Kcals: Using Current wt Calories/Kcals/Kg 25-30 kcal/kg using CBW 57.7kg Kcals Calculated ~1620-7879 kcal/day Protein: Using Current wt Protein g/k-1.2 gm/kg Protein Calculated ~60-70 gm/day Fluid: ml ~3601-6891 ml/day (1 ml/kcal) Nutritional Problem 1. Problem Problem No nutrition diagnosis at this time Intervention/Recommendation Comments Continue pureed cardiac diet as tolerated by patient. Assist with meals as needed. Expected Outcomes/Goals Expected Outcomes/Goals Oral intake >75% ofmeals, weight stable, nutrition related labs WNL, skin intact F/U LR 07/02
[2019-07-09] MEDS: Levothyroxine 0.075 Mg Tab PO SCH (06:45)
[2019-07-09] MEDS: Pantoprazole 40 mg EC Tab PO SCH (09:00)
[2019-07-09] MEDS: Multivitamin Tab PO SCH (09:00)
[2019-07-09] MEDS: Lactobacillus Rhamnosus GG 15 Billion CFU CAP.SPRINK PO SCH (09:00)
[2019-07-09] MEDS: risperiDONE 1 mg/mL 30 mL Bottle PO SCH ×2 (09:00→17:53)
--- NOTE | 2019-07-09 18:17 | Internal Medicine Prog Note ---
Internal Medicine Subjective - Subjective Service Date: 07/09/19 Patient seen and examined:: without staff (SHE IS DOING WELL) Patient is:: awake, verbal, in bed, confused Per staff patient has:: no adverse event Internal Medicine Objective - Results Result Diagrams: 06/24/19 05:09 06/24/19 05:09 Recent Labs: Laboratory Last Values WBC 6.9 Th/cmm (4.8-10.8) 06/24/19 05:09 RBC 3.60 Mil/cmm (3.80-5.20) L 06/24/19 05:09 Hgb 11.3 gm/dL (12-16) L 06/24/19 05:09 Hct 33.9 % (41.0-60) L 06/24/19 05:09 MCV 94.0 fl (81-100) 06/24/19 05:09 MCH 31.3 pg (27.0-31.0) H 06/24/19 05:09 MCHC Differential 33.3 pg (28.0-36.0) 06/24/19 05:09 RDW 12.6 % (11.5-20.0) 06/24/19 05:09 Plt Count 374 Th/cmm (150-400) 06/24/19 05:09 MPV 7.8 fl 06/24/19 05:09 Neutrophils % 54.0 % (40.0-80.0) 06/24/19 05:09 Lymphocytes % 32.6 % (20.0-50.0) 06/24/19 05:09 Monocytes % 6.9 % (2.0-10.0) 06/24/19 05:09 Eosinophils % 3.5 % (0.0-5.0) 06/24/19 05:09 Basophils % 3.0 % (0.0-2.0) H 06/24/19 05:09 Sodium 140 mEq/L (136-145) 06/24/19 05:09 Potassium 3.7 mEq/L (3.5-5.1) 06/24/19 05:09 Chloride 106 mEq/L (98-107) 06/24/19 05:09 Carbon Dioxide 27.3 mEq/L (21.0-31.0) 06/24/19 05:09 Anion Gap 10.4 (7.0-16.0) 06/24/19 05:09 BUN 7 mg/dL (7-25) 06/24/19 05:09 Creatinine 0.8 mg/dL (0.6-1.2) 06/24/19 05:09 Est GFR ( Amer) TNP 06/24/19 05:09 Est GFR (Non-Af Amer) TNP 06/24/19 05:09 BUN/Creatinine Ratio 8.8 06/24/19 05:09 Glucose 90 mg/dL (70-105) 06/24/19 05:09 Calcium 9.0 mg/dL (8.6-10.3) 06/24/19 05:09 Total Bilirubin 0.5 mg/dL (0.3-1.0) 06/24/19 05:09 AST 17 U/L (13-39) 06/24/19 05:09 ALT 15 U/L (7-52) 06/24/19 05:09 Alkaline Phosphatase 43 U/L (34-104) 06/24/19 05:09 Total Protein 6.4 gm/dL (6.0-8.3) 06/24/19 05:09 Albumin 3.4 gm/dL (3.7-5.3) L 06/24/19 05:09 Globulin 3.0 gm/dL 06/24/19 05:09 Albumin/Globulin Ratio 1.1 (1.0-1.8) 06/24/19 05:09 Triglycerides 78 mg/dL (<150) 06/24/19 05:09 Cholesterol 117 mg/dL (<200) 06/24/19 05:09 LDL Cholesterol Direct 67 mg/dL (75-193) L 06/24/19 05:09 HDL Cholesterol 37 mg/dL (23-92) 06/24/19 05:09 - Physical Exam Vitals and I&O: Vital Signs Temp 98.5 F 07/09/19 14:00 Pulse 80 07/09/19 14:00 Resp 20 07/09/19 14:00 BP 132/65 07/09/19 14:00 Pulse Ox 100 07/09/19 14:00 Intake & Output 07/08/19 07/09/19 07/09/19 18:59 06:59 18:59 Intake Total 900 800 Balance 900 800 Intake: Oral 900 800 Other: # Voids 4 3 # Bowel Movements 0 0 Active Medications: Current Medications Acetaminophen (Tylenol) 650 mg PO Q4HR PRN PRN Reason: Mild Pain / Temp above 100 Stop: 08/22/19 16:30 Al Hydrox/Mg Hydrox/Simethicone (Maalox) 30 ml PO Q4HR PRN PRN Reason: GI DISTRESS Stop: 08/22/19 16:30 Amlodipine Besylate (Norvasc) 5 mg PO DAILY [facility] Stop: 08/23/19 08:59 Last Admin: 07/09/19 12:02 Dose: 5 mg Donepezil HCl (Aricept) 10 mg PO HS [facility] Stop: 09/02/19 20:59 Last Admin: 07/08/19 21:23 Dose: 10 mg Lactobacillus Rhamnosus (Culturelle 15b) 1 each PO DAILY [facility] Stop: 08/24/19 08:59 Last Admin: 07/09/19 09:00 Dose: 1 each Levothyroxine Sodium (Synthroid) 0.075 mg PO 0700 [facility] Stop: 08/23/19 06:59 Last Admin: 07/09/19 06:45 Dose: 0.075 mg Magnesium Hydroxide (Milk Of Magnesia) 30 ml PO HS PRN PRN Reason: Constipation Miscellaneous (Probiotic Screen) 1 ea MC PRN PRN PRN Reason: PROTOCOL Stop: 08/23/19 10:37 Multivitamins/Vitamin C (Theragran) 1 tab PO DAILY [facility] Stop: 08/23/19 08:59 Last Admin: 07/09/19 09:00 Dose: 1 tab Pantoprazole Sodium (Protonix) 40 mg PO QAM [facility] Stop: 08/23/19 08:59 Last Admin: 07/09/19 09:00 Dose: 40 mg Risperidone (Risperdal) 0.5 mg PO BID [facility]; Protocol Stop: 09/05/19 08:59 Last Admin: 07/09/19 17:53 Dose: 0.5 mg General: demented HEENT: NC/AT, PERRLA, EOMI, anicteric sclerae, throat clear Neck: Supple, No JVD, No thyromegaly, +2 carotid pulse wo bruit, No LAD, + JVD Lungs: CTAB Cardiovascular: RRR, Normal S1, Normal S2, without murmur Abdomen: non-tender, non-distended Extremities: clear Neurological: no change - Procedures Procedures: Procedures Procedure Code Date OTHER GROUP THERAPY 94.44 04/02/12 RECREATIONAL THERAPY 93.81 04/02/12 Internal Medicine Assmt/Plan - Assessment Assessment: 1.HTN. 2.HYPOTHYROIDISM 3.DJD. 4.PSYCHOSIS - Plan Plan: CONTINUE ON CURRENT MEDICATION AND DIET Nutritional Asmnt/Malnutr-PDOC - Dietary Evaluation Malnutrition Findings (Please click <Entered> for more info): Nutritional Asmnt/Malnutrition Start: 06/25/19 10: 43 Text: Status: Active Freq: Protocol: Document 06/25/19 10:43 MMULN (Rec: 06/25/19 10:50 MMULHERN AMIE- FNS1) Nutritional Asmnt/Malnutrition Patient General Information Nutritional Screening Moderate Risk Diagnosis Psychosis NOS Pertinent Medical Hx/Surgical Hx HTN, Hypothyroidism, degenerative joint disease, psychosis Subjective Information Patient was admitted from [facility]. Patient in bed eating lunch at time of visit . Tolerating well. Current Diet Order/ Nutrition Support Pureed Cardiac Pertinent Medications maalox, Culturelle, synthroid, MOM, Theragran, Protonix Pertinent Labs (06/24) Albumin 3.4 Nutritional Hx/Data Height 1.68 m Height (Calculated Centimeters) 167.6 Current Weight (lbs) 57.606 kg Weight (Calculated Kilograms) 57.6 Weight (Calculated Grams) 57913.2 [place] Body Weight 130 % [place] Body Weight 97 Body Mass Index (BMI) 20.5 Recent Weight Change No Weight Status Approriate GI Symptoms GI Symptoms None Last BM none noted Difficult in: None Food Allergies No Cultural/Ethnic/Gnosticist Belief none indicated Usual diet at home unknown Skin Integrity/Comment: Bhavin 15, Intact Current %PO Good (75-100%) Estimated Nutritional Goals BEE in Kcals: Using Current wt Calories/Kcals/Kg 25-30 kcal/kg using CBW 57.7kg Kcals Calculated ~9540-3875 kcal/day Protein: Using Current wt Protein g/k-1.2 gm/kg Protein Calculated ~60-70 gm/day Fluid: ml ~5579-9744 ml/day (1 ml/kcal) Nutritional Problem 1. Problem Problem No nutrition diagnosis at this time Intervention/Recommendation Comments Continue pureed cardiac diet as tolerated by patient. Assist with meals as needed. Expected Outcomes/Goals Expected Outcomes/Goals Oral intake >75% ofmeals, weight stable, nutrition related labs WNL, skin intact F/U LR 07/02
[2019-07-10] MEDS: Levothyroxine 0.075 Mg Tab PO SCH (06:10)
[2019-07-10] MEDS: Pantoprazole 40 mg EC Tab PO SCH (10:00)
[2019-07-10] MEDS: Multivitamin Tab PO SCH (10:00)
[2019-07-10] MEDS: Lactobacillus Rhamnosus GG 15 Billion CFU CAP.SPRINK PO SCH (10:00)
--- NOTE | 2019-07-10 10:27 | Progress Notes ---
DATE: 07/09/[address] Blas. IDENTIFYING DATA: An 84-year-old female transferred from [place] bizarre behavior, confused and disorganized state. CURRENT MEDICATION RECONCILIATION: Reviewed. Risperidone 0.5 b.i.d., Aricept 10 mg a day. Today on [id number] evaluation, the patient stares blankly, minimally coherent, selectively mute at times, poor historian overall. Nursing staff reported the patient has mostly been isolative, intermittent, refusing medications. ASSESSMENT AND PLAN: The patient continues to appear disorganized, still withdrawn, minimally interactive with others and appears anxious. Behavior disturbances from underlying dementia. We will continue with the current primary psychiatrist treatment plan and goals to continue targeting the patient's symptoms. JOB# [id number]
[2019-07-10] MEDS: risperiDONE 1 mg/mL 30 mL Bottle PO SCH (10:46)
--- NOTE | 2019-07-10 18:26 | Internal Medicine Prog Note ---
Internal Medicine Subjective - Subjective Service Date: 07/10/19 Patient seen and examined:: without staff (SHE FEELS WELL) Patient is:: awake, verbal, in bed, confused Per staff patient has:: no adverse event Internal Medicine Objective - Results Result Diagrams: 06/24/19 05:09 06/24/19 05:09 Recent Labs: Laboratory Last Values WBC 6.9 Th/cmm (4.8-10.8) 06/24/19 05:09 RBC 3.60 Mil/cmm (3.80-5.20) L 06/24/19 05:09 Hgb 11.3 gm/dL (12-16) L 06/24/19 05:09 Hct 33.9 % (41.0-60) L 06/24/19 05:09 MCV 94.0 fl (81-100) 06/24/19 05:09 MCH 31.3 pg (27.0-31.0) H 06/24/19 05:09 MCHC Differential 33.3 pg (28.0-36.0) 06/24/19 05:09 RDW 12.6 % (11.5-20.0) 06/24/19 05:09 Plt Count 374 Th/cmm (150-400) 06/24/19 05:09 MPV 7.8 fl 06/24/19 05:09 Neutrophils % 54.0 % (40.0-80.0) 06/24/19 05:09 Lymphocytes % 32.6 % (20.0-50.0) 06/24/19 05:09 Monocytes % 6.9 % (2.0-10.0) 06/24/19 05:09 Eosinophils % 3.5 % (0.0-5.0) 06/24/19 05:09 Basophils % 3.0 % (0.0-2.0) H 06/24/19 05:09 Sodium 140 mEq/L (136-145) 06/24/19 05:09 Potassium 3.7 mEq/L (3.5-5.1) 06/24/19 05:09 Chloride 106 mEq/L (98-107) 06/24/19 05:09 Carbon Dioxide 27.3 mEq/L (21.0-31.0) 06/24/19 05:09 Anion Gap 10.4 (7.0-16.0) 06/24/19 05:09 BUN 7 mg/dL (7-25) 06/24/19 05:09 Creatinine 0.8 mg/dL (0.6-1.2) 06/24/19 05:09 Est GFR ( Amer) TNP 06/24/19 05:09 Est GFR (Non-Af Amer) TNP 06/24/19 05:09 BUN/Creatinine Ratio 8.8 06/24/19 05:09 Glucose 90 mg/dL (70-105) 06/24/19 05:09 Calcium 9.0 mg/dL (8.6-10.3) 06/24/19 05:09 Total Bilirubin 0.5 mg/dL (0.3-1.0) 06/24/19 05:09 AST 17 U/L (13-39) 06/24/19 05:09 ALT 15 U/L (7-52) 06/24/19 05:09 Alkaline Phosphatase 43 U/L (34-104) 06/24/19 05:09 Total Protein 6.4 gm/dL (6.0-8.3) 06/24/19 05:09 Albumin 3.4 gm/dL (3.7-5.3) L 06/24/19 05:09 Globulin 3.0 gm/dL 06/24/19 05:09 Albumin/Globulin Ratio 1.1 (1.0-1.8) 06/24/19 05:09 Triglycerides 78 mg/dL (<150) 06/24/19 05:09 Cholesterol 117 mg/dL (<200) 06/24/19 05:09 LDL Cholesterol Direct 67 mg/dL (75-193) L 06/24/19 05:09 HDL Cholesterol 37 mg/dL (23-92) 06/24/19 05:09 - Physical Exam Vitals and I&O: Vital Signs Temp 98.0 F 07/10/19 14:00 Pulse 80 07/10/19 14:00 Resp 20 07/10/19 14:00 BP 116/53 07/10/19 14:00 Pulse Ox 96 07/10/19 14:00 Intake & Output 07/09/19 07/10/19 07/10/19 18:59 06:59 18:59 Intake Total 800 220 900 Balance 800 220 900 Intake: Oral 800 220 900 Other: # Voids 3 3 3 # Bowel Movements 0 0 Active Medications: Current Medications Acetaminophen (Tylenol) 650 mg PO Q4HR PRN PRN Reason: Mild Pain / Temp above 100 Stop: 08/22/19 16:30 Al Hydrox/Mg Hydrox/Simethicone (Maalox) 30 ml PO Q4HR PRN PRN Reason: GI DISTRESS Stop: 08/22/19 16:30 Amlodipine Besylate (Norvasc) 5 mg PO DAILY [facility] Stop: 08/23/19 08:59 Last Admin: 07/09/19 12:02 Dose: 5 mg Donepezil HCl (Aricept) 10 mg PO HS [facility] Stop: 09/02/19 20:59 Last Admin: 07/09/19 21:30 Dose: 10 mg Lactobacillus Rhamnosus (Culturelle 15b) 1 each PO DAILY [facility] Stop: 08/24/19 08:59 Last Admin: 07/10/19 10:00 Dose: 1 each Levothyroxine Sodium (Synthroid) 0.075 mg PO 0700 [facility] Stop: 08/23/19 06:59 Last Admin: 07/10/19 06:10 Dose: 0.075 mg Magnesium Hydroxide (Milk Of Magnesia) 30 ml PO HS PRN PRN Reason: Constipation Miscellaneous (Probiotic Screen) 1 ea MC PRN PRN PRN Reason: PROTOCOL Stop: 08/23/19 10:37 Multivitamins/Vitamin C (Theragran) 1 tab PO DAILY [facility] Stop: 08/23/19 08:59 Last Admin: 07/10/19 10:00 Dose: 1 tab Pantoprazole Sodium (Protonix) 40 mg PO QAM [facility] Stop: 08/23/19 08:59 Last Admin: 07/10/19 10:00 Dose: 40 mg Risperidone (Risperdal) 0.5 mg PO BID [facility]; Protocol Stop: 09/05/19 08:59 Last Admin: 07/10/19 10:46 Dose: 0.5 mg General: demented HEENT: NC/AT, PERRLA, EOMI, anicteric sclerae, throat clear Neck: Supple, No JVD, No thyromegaly, +2 carotid pulse wo bruit, No LAD, + JVD Lungs: CTAB Cardiovascular: RRR, Normal S1, Normal S2, without murmur Abdomen: non-tender, non-distended Extremities: clear Neurological: no change - Procedures Procedures: Procedures Procedure Code Date OTHER GROUP THERAPY 94.44 04/02/12 RECREATIONAL THERAPY 93.81 04/02/12 Internal Medicine Assmt/Plan - Assessment Assessment: 1.HTN. 2.HYPOTHYROIDISM 3.DJD. 4.PSYCHOSIS - Plan Plan: CONTINUE ON CURRENT MEDICATION AND DIET Nutritional Asmnt/Malnutr-PDOC - Dietary Evaluation Malnutrition Findings (Please click <Entered> for more info): Nutritional Asmnt/Malnutrition Start: 06/25/19 10: 43 Text: Status: Active Freq: Protocol: Document 06/25/19 10:43 MMULHERN (Rec: 06/25/19 10:50 MMULHERN AMIE- FNS1) Nutritional Asmnt/Malnutrition Patient General Information Nutritional Screening Moderate Risk Diagnosis Psychosis NOS Pertinent Medical Hx/Surgical Hx HTN, Hypothyroidism, degenerative joint disease, psychosis Subjective Information Patient was admitted from [facility]. Patient in bed eating lunch at time of visit . Tolerating well. Current Diet Order/ Nutrition Support Pureed Cardiac Pertinent Medications maalox, Culturelle, synthroid, MOM, Theragran, Protonix Pertinent Labs (06/24) Albumin 3.4 Nutritional Hx/Data Height 1.68 m Height (Calculated Centimeters) 167.6 Current Weight (lbs) 57.606 kg Weight (Calculated Kilograms) 57.6 Weight (Calculated Grams) 08339.2 [place] Body Weight 130 % [place] Body Weight 97 Body Mass Index (BMI) 20.5 Recent Weight Change No Weight Status Approriate GI Symptoms GI Symptoms None Last BM none noted Difficult in: None Food Allergies No Cultural/Ethnic/Taoist Belief none indicated Usual diet at home unknown Skin Integrity/Comment: Bhavin 15, Intact Current %PO Good (75-100%) Estimated Nutritional Goals BEE in Kcals: Using Current wt Calories/Kcals/Kg 25-30 kcal/kg using CBW 57.7kg Kcals Calculated ~6172-8343 kcal/day Protein: Using Current wt Protein g/k-1.2 gm/kg Protein Calculated ~60-70 gm/day Fluid: ml ~7154-2396 ml/day (1 ml/kcal) Nutritional Problem 1. Problem Problem No nutrition diagnosis at this time Intervention/Recommendation Comments Continue pureed cardiac diet as tolerated by patient. Assist with meals as needed. Expected Outcomes/Goals Expected Outcomes/Goals Oral intake >75% ofmeals, weight stable, nutrition related labs WNL, skin intact F/U LR 07/02
--- NOTE | 2019-07-10 19:44 | Progress Notes ---
DATE: 07/10/2019 SUBJECTIVE: The patient was seen and evaluated. The patient's chart reviewed. Covering for Dr. Blas. Today on [id number] evaluation, the patient continues to be disengaged, guarded, withdrawn, disorganized thoughts, difficulty understanding her thought process. She speaks in incoherent manner. MENTAL STATUS EXAMINATION: Disorganized. ASSESSMENT PLAN: Dementia with behavior disturbances, awaiting placement. We will continue with primary psychiatrist's treatment plan and goals. JOB# [id number]
[2019-07-11] MEDS: Levothyroxine 0.075 Mg Tab PO SCH (06:38)
[2019-07-11] MEDS: risperiDONE 1 mg/mL 30 mL Bottle PO SCH ×2 (09:44→17:39)
[2019-07-11] MEDS: Lactobacillus Rhamnosus GG 15 Billion CFU CAP.SPRINK PO SCH (09:44)
[2019-07-11] MEDS: Pantoprazole 40 mg EC Tab PO SCH (09:44)
[2019-07-11] MEDS: Multivitamin Tab PO SCH (09:44)
--- NOTE | 2019-07-11 20:14 | Internal Medicine Prog Note ---
Internal Medicine Subjective - Subjective Service Date: 07/11/19 Patient seen and examined:: with staff (SHE FEELS WELL) Patient is:: awake, verbal, in bed, confused Per staff patient has:: no adverse event Internal Medicine Objective - Results Result Diagrams: 06/24/19 05:09 06/24/19 05:09 Recent Labs: Laboratory Last Values WBC 6.9 Th/cmm (4.8-10.8) 06/24/19 05:09 RBC 3.60 Mil/cmm (3.80-5.20) L 06/24/19 05:09 Hgb 11.3 gm/dL (12-16) L 06/24/19 05:09 Hct 33.9 % (41.0-60) L 06/24/19 05:09 MCV 94.0 fl (81-100) 06/24/19 05:09 MCH 31.3 pg (27.0-31.0) H 06/24/19 05:09 MCHC Differential 33.3 pg (28.0-36.0) 06/24/19 05:09 RDW 12.6 % (11.5-20.0) 06/24/19 05:09 Plt Count 374 Th/cmm (150-400) 06/24/19 05:09 MPV 7.8 fl 06/24/19 05:09 Neutrophils % 54.0 % (40.0-80.0) 06/24/19 05:09 Lymphocytes % 32.6 % (20.0-50.0) 06/24/19 05:09 Monocytes % 6.9 % (2.0-10.0) 06/24/19 05:09 Eosinophils % 3.5 % (0.0-5.0) 06/24/19 05:09 Basophils % 3.0 % (0.0-2.0) H 06/24/19 05:09 Sodium 140 mEq/L (136-145) 06/24/19 05:09 Potassium 3.7 mEq/L (3.5-5.1) 06/24/19 05:09 Chloride 106 mEq/L (98-107) 06/24/19 05:09 Carbon Dioxide 27.3 mEq/L (21.0-31.0) 06/24/19 05:09 Anion Gap 10.4 (7.0-16.0) 06/24/19 05:09 BUN 7 mg/dL (7-25) 06/24/19 05:09 Creatinine 0.8 mg/dL (0.6-1.2) 06/24/19 05:09 Est GFR ( Amer) TNP 06/24/19 05:09 Est GFR (Non-Af Amer) TNP 06/24/19 05:09 BUN/Creatinine Ratio 8.8 06/24/19 05:09 Glucose 90 mg/dL (70-105) 06/24/19 05:09 Calcium 9.0 mg/dL (8.6-10.3) 06/24/19 05:09 Total Bilirubin 0.5 mg/dL (0.3-1.0) 06/24/19 05:09 AST 17 U/L (13-39) 06/24/19 05:09 ALT 15 U/L (7-52) 06/24/19 05:09 Alkaline Phosphatase 43 U/L (34-104) 06/24/19 05:09 Total Protein 6.4 gm/dL (6.0-8.3) 06/24/19 05:09 Albumin 3.4 gm/dL (3.7-5.3) L 06/24/19 05:09 Globulin 3.0 gm/dL 06/24/19 05:09 Albumin/Globulin Ratio 1.1 (1.0-1.8) 06/24/19 05:09 Triglycerides 78 mg/dL (<150) 06/24/19 05:09 Cholesterol 117 mg/dL (<200) 06/24/19 05:09 LDL Cholesterol Direct 67 mg/dL (75-193) L 06/24/19 05:09 HDL Cholesterol 37 mg/dL (23-92) 06/24/19 05:09 - Physical Exam Vitals and I&O: Vital Signs Temp 97.9 F 07/11/19 14:23 Pulse 78 07/11/19 14:23 Resp 20 07/11/19 14:23 BP 113/51 07/11/19 14:23 Pulse Ox 95 07/11/19 14:23 Intake & Output 07/11/19 07/11/19 07/12/19 06:59 18:59 06:59 Intake Total 120 900 Balance 120 900 Intake: Oral 120 900 Other: # Voids 3 4 # Bowel Movements 1 Active Medications: Current Medications Acetaminophen (Tylenol) 650 mg PO Q4HR PRN PRN Reason: Mild Pain / Temp above 100 Stop: 08/22/19 16:30 Al Hydrox/Mg Hydrox/Simethicone (Maalox) 30 ml PO Q4HR PRN PRN Reason: GI DISTRESS Stop: 08/22/19 16:30 Amlodipine Besylate (Norvasc) 5 mg PO DAILY [facility] Stop: 08/23/19 08:59 Last Admin: 07/11/19 09:44 Dose: Not Given Donepezil HCl (Aricept) 10 mg PO HS [facility] Stop: 09/02/19 20:59 Last Admin: 07/10/19 21:52 Dose: 10 mg Lactobacillus Rhamnosus (Culturelle 15b) 1 each PO DAILY [facility] Stop: 08/24/19 08:59 Last Admin: 07/11/19 09:44 Dose: 1 each Levothyroxine Sodium (Synthroid) 0.075 mg PO 0700 [facility] Stop: 08/23/19 06:59 Last Admin: 07/11/19 06:38 Dose: 0.075 mg Magnesium Hydroxide (Milk Of Magnesia) 30 ml PO HS PRN PRN Reason: Constipation Miscellaneous (Probiotic Screen) 1 ea MC PRN PRN PRN Reason: PROTOCOL Stop: 08/23/19 10:37 Multivitamins/Vitamin C (Theragran) 1 tab PO DAILY [facility] Stop: 08/23/19 08:59 Last Admin: 07/11/19 09:44 Dose: 1 tab Pantoprazole Sodium (Protonix) 40 mg PO QAM [facility] Stop: 08/23/19 08:59 Last Admin: 07/11/19 09:44 Dose: 40 mg Risperidone (Risperdal) 0.5 mg PO BID [facility]; Protocol Stop: 09/05/19 08:59 Last Admin: 07/11/19 17:39 Dose: 0.5 mg General: demented HEENT: NC/AT, PERRLA, EOMI, anicteric sclerae, throat clear Neck: Supple, No JVD, No thyromegaly, +2 carotid pulse wo bruit, No LAD, + JVD Lungs: CTAB Cardiovascular: RRR, Normal S1, Normal S2, without murmur Abdomen: non-tender, non-distended Extremities: clear Neurological: no change - Procedures Procedures: Procedures Procedure Code Date OTHER GROUP THERAPY 94.44 04/02/12 RECREATIONAL THERAPY 93.81 04/02/12 Internal Medicine Assmt/Plan - Assessment Assessment: 1.HTN. 2.HYPOTHYROIDISM 3.DJD. 4.PSYCHOSIS - Plan Plan: CONTINUE ON CURRENT MEDICATION AND DIET Nutritional Asmnt/Malnutr-PDOC - Dietary Evaluation Malnutrition Findings (Please click <Entered> for more info): Nutritional Asmnt/Malnutrition Start: 06/25/19 10: 43 Text: Status: Active Freq: Protocol: Document 06/25/19 10:43 MMULN (Rec: 06/25/19 10:50 MMULHERN AMIE- [email or web address]) Nutritional Asmnt/Malnutrition Patient General Information Nutritional Screening Moderate Risk Diagnosis Psychosis NOS Pertinent Medical Hx/Surgical Hx HTN, Hypothyroidism, degenerative joint disease, psychosis Subjective Information Patient was admitted from [facility]. Patient in bed eating lunch at time of visit . Tolerating well. Current Diet Order/ Nutrition Support Pureed Cardiac Pertinent Medications maalox, Culturelle, synthroid, MOM, Theragran, Protonix Pertinent Labs (06/24) Albumin 3.4 Nutritional Hx/Data Height 1.68 m Height (Calculated Centimeters) 167.6 Current Weight (lbs) 57.606 kg Weight (Calculated Kilograms) 57.6 Weight (Calculated Grams) 81245.2 [place] Body Weight 130 % [place] Body Weight 97 Body Mass Index (BMI) 20.5 Recent Weight Change No Weight Status Approriate GI Symptoms GI Symptoms None Last BM none noted Difficult in: None Food Allergies No Cultural/Ethnic/Taoism Belief none indicated Usual diet at home unknown Skin Integrity/Comment: Bhavin 15, Intact Current %PO Good (75-100%) Estimated Nutritional Goals BEE in Kcals: Using Current wt Calories/Kcals/Kg 25-30 kcal/kg using CBW 57.7kg Kcals Calculated ~4087-5012 kcal/day Protein: Using Current wt Protein g/k-1.2 gm/kg Protein Calculated ~60-70 gm/day Fluid: ml ~7908-9084 ml/day (1 ml/kcal) Nutritional Problem 1. Problem Problem No nutrition diagnosis at this time Intervention/Recommendation Comments Continue pureed cardiac diet as tolerated by patient. Assist with meals as needed. Expected Outcomes/Goals Expected Outcomes/Goals Oral intake >75% ofmeals, weight stable, nutrition related labs WNL, skin intact F/U LR 07/02
--- NOTE | 2019-07-11 23:17 | Progress Notes ---
DATE: 07/11/2019 Case was discussed with staff of the patient, reviewed records. Covering for Dr. Blas. This is a well-known case to me. I have seen him before many times covering for Dr. Blas. The patient continues to isolate herself. Continues to be withdrawn, disorganized. Continues to have poor insight, unpredictable, impulsive, needing redirection, very disorganized, demented, confused. No side effects with the medication, no sedation, no nausea, or no extrapyramidal symptoms. Her Risperdal was increased 2.5 mg twice a day. We will continue outpatient group therapy, milieu therapy, and adjust medication as needed. JOB# [id number]
[2019-07-12] MEDS: Levothyroxine 0.075 Mg Tab PO SCH (06:45)
[2019-07-12] MEDS: risperiDONE 1 mg/mL 30 mL Bottle PO SCH ×2 (08:26→16:48)
[2019-07-12] MEDS: Pantoprazole 40 mg EC Tab PO SCH (08:27)
[2019-07-12] MEDS: Multivitamin Tab PO SCH (08:27)
[2019-07-12] MEDS: Lactobacillus Rhamnosus GG 15 Billion CFU CAP.SPRINK PO SCH (08:27)
--- NOTE | 2019-07-12 12:52 | Progress Notes ---
DATE: 07/12/2019 Case was discussed with staff of the patient, reviewed records. The patient continues to isolate herself, staying in bed, continues to be disorganized, looking disheveled, poor insight, unpredictable, impulsive, . She is demented, confused. She is compliant with the medication, no side effects. No extrapyramidal symptoms. She is tolerating increase in Risperdal. We will continue the patient in group therapy, milieu therapy, adjust medication as needed. JOB# [id number]
--- NOTE | 2019-07-12 20:37 | Internal Medicine Prog Note ---
Internal Medicine Subjective - Subjective Service Date: 07/12/19 Patient seen and examined:: without staff (she is doing well) Patient is:: awake, verbal, in bed, confused Per staff patient has:: no adverse event Internal Medicine Objective - Results Result Diagrams: 06/24/19 05:09 06/24/19 05:09 Recent Labs: Laboratory Last Values WBC 6.9 Th/cmm (4.8-10.8) 06/24/19 05:09 RBC 3.60 Mil/cmm (3.80-5.20) L 06/24/19 05:09 Hgb 11.3 gm/dL (12-16) L 06/24/19 05:09 Hct 33.9 % (41.0-60) L 06/24/19 05:09 MCV 94.0 fl (81-100) 06/24/19 05:09 MCH 31.3 pg (27.0-31.0) H 06/24/19 05:09 MCHC Differential 33.3 pg (28.0-36.0) 06/24/19 05:09 RDW 12.6 % (11.5-20.0) 06/24/19 05:09 Plt Count 374 Th/cmm (150-400) 06/24/19 05:09 MPV 7.8 fl 06/24/19 05:09 Neutrophils % 54.0 % (40.0-80.0) 06/24/19 05:09 Lymphocytes % 32.6 % (20.0-50.0) 06/24/19 05:09 Monocytes % 6.9 % (2.0-10.0) 06/24/19 05:09 Eosinophils % 3.5 % (0.0-5.0) 06/24/19 05:09 Basophils % 3.0 % (0.0-2.0) H 06/24/19 05:09 Sodium 140 mEq/L (136-145) 06/24/19 05:09 Potassium 3.7 mEq/L (3.5-5.1) 06/24/19 05:09 Chloride 106 mEq/L (98-107) 06/24/19 05:09 Carbon Dioxide 27.3 mEq/L (21.0-31.0) 06/24/19 05:09 Anion Gap 10.4 (7.0-16.0) 06/24/19 05:09 BUN 7 mg/dL (7-25) 06/24/19 05:09 Creatinine 0.8 mg/dL (0.6-1.2) 06/24/19 05:09 Est GFR ( Amer) TNP 06/24/19 05:09 Est GFR (Non-Af Amer) TNP 06/24/19 05:09 BUN/Creatinine Ratio 8.8 06/24/19 05:09 Glucose 90 mg/dL (70-105) 06/24/19 05:09 Calcium 9.0 mg/dL (8.6-10.3) 06/24/19 05:09 Total Bilirubin 0.5 mg/dL (0.3-1.0) 06/24/19 05:09 AST 17 U/L (13-39) 06/24/19 05:09 ALT 15 U/L (7-52) 06/24/19 05:09 Alkaline Phosphatase 43 U/L (34-104) 06/24/19 05:09 Total Protein 6.4 gm/dL (6.0-8.3) 06/24/19 05:09 Albumin 3.4 gm/dL (3.7-5.3) L 06/24/19 05:09 Globulin 3.0 gm/dL 06/24/19 05:09 Albumin/Globulin Ratio 1.1 (1.0-1.8) 06/24/19 05:09 Triglycerides 78 mg/dL (<150) 06/24/19 05:09 Cholesterol 117 mg/dL (<200) 06/24/19 05:09 LDL Cholesterol Direct 67 mg/dL (75-193) L 06/24/19 05:09 HDL Cholesterol 37 mg/dL (23-92) 06/24/19 05:09 - Physical Exam Vitals and I&O: Vital Signs Temp 97.9 F 07/12/19 20:21 Pulse 91 07/12/19 20:21 Resp 20 07/12/19 20:21 BP 118/66 07/12/19 20:21 Pulse Ox 95 07/12/19 20:21 Intake & Output 07/12/19 07/12/19 07/13/19 06:59 18:59 06:59 Intake Total 240 800 240 Output Total 1 1 Balance 239 800 239 Intake: Oral 240 800 240 Output: Urine/Stool Mix 1 1 Other: # Voids 3 3 1 # Bowel Movements 0 0 Active Medications: Current Medications Acetaminophen (Tylenol) 650 mg PO Q4HR PRN PRN Reason: Mild Pain / Temp above 100 Stop: 08/22/19 16:30 Al Hydrox/Mg Hydrox/Simethicone (Maalox) 30 ml PO Q4HR PRN PRN Reason: GI DISTRESS Stop: 08/22/19 16:30 Amlodipine Besylate (Norvasc) 5 mg PO DAILY [facility] Stop: 08/23/19 08:59 Last Admin: 07/12/19 08:28 Dose: Not Given Donepezil HCl (Aricept) 10 mg PO HS [facility] Stop: 09/02/19 20:59 Last Admin: 07/11/19 21:17 Dose: 10 mg Lactobacillus Rhamnosus (Culturelle 15b) 1 each PO DAILY [facility] Stop: 08/24/19 08:59 Last Admin: 07/12/19 08:27 Dose: 1 each Levothyroxine Sodium (Synthroid) 0.075 mg PO 0700 [facility] Stop: 08/23/19 06:59 Last Admin: 07/12/19 06:45 Dose: 0.075 mg Magnesium Hydroxide (Milk Of Magnesia) 30 ml PO HS PRN PRN Reason: Constipation Miscellaneous (Probiotic Screen) 1 ea [facility] PRN PRN PRN Reason: PROTOCOL Stop: 08/23/19 10:37 Multivitamins/Vitamin C (Theragran) 1 tab PO DAILY [facility] Stop: 08/23/19 08:59 Last Admin: 07/12/19 08:27 Dose: 1 tab Pantoprazole Sodium (Protonix) 40 mg PO QAM [facility] Stop: 08/23/19 08:59 Last Admin: 07/12/19 08:27 Dose: 40 mg Risperidone (Risperdal) 0.5 mg PO BID [facility]; Protocol Stop: 09/05/19 08:59 Last Admin: 07/12/19 16:48 Dose: 0.5 mg General: demented HEENT: NC/AT, PERRLA, EOMI, anicteric sclerae, throat clear Neck: Supple, No JVD, No thyromegaly, +2 carotid pulse wo bruit, No LAD, + JVD Lungs: CTAB Cardiovascular: RRR, Normal S1, Normal S2, without murmur Abdomen: non-tender, non-distended Extremities: clear Neurological: no change - Procedures Procedures: Procedures Procedure Code Date OTHER GROUP THERAPY 94.44 04/02/12 RECREATIONAL THERAPY 93.81 04/02/12 Internal Medicine Assmt/Plan - Assessment Assessment: 1.HTN. 2.HYPOTHYROIDISM 3.DJD. 4.PSYCHOSIS - Plan Plan: CONTINUE ON CURRENT MEDICATION AND DIET Nutritional Asmnt/Malnutr-PDOC - Dietary Evaluation Malnutrition Findings (Please click <Entered> for more info): Nutritional Asmnt/Malnutrition Start: 06/25/19 10: 43 Text: Status: Active Freq: Protocol: Document 06/25/19 10:43 POLINA (Rec: 06/25/19 10:50 MMMICKIE HOLLOWAY- [email or web address]) Nutritional Asmnt/Malnutrition Patient General Information Nutritional Screening Moderate Risk Diagnosis Psychosis NOS Pertinent Medical Hx/Surgical Hx HTN, Hypothyroidism, degenerative joint disease, psychosis Subjective Information Patient was admitted from [facility]. Patient in bed eating lunch at time of visit . Tolerating well. Current Diet Order/ Nutrition Support Pureed Cardiac Pertinent Medications maalox, Culturelle, synthroid, MOM, Theragran, Protonix Pertinent Labs (06/24) Albumin 3.4 Nutritional Hx/Data Height 1.68 m Height (Calculated Centimeters) 167.6 Current Weight (lbs) 57.606 kg Weight (Calculated Kilograms) 57.6 Weight (Calculated Grams) 76458.2 [place] Body Weight 130 % [place] Body Weight 97 Body Mass Index (BMI) 20.5 Recent Weight Change No Weight Status Approriate GI Symptoms GI Symptoms None Last BM none noted Difficult in: None Food Allergies No Cultural/Ethnic/Religion Belief none indicated Usual diet at home unknown Skin Integrity/Comment: Bhavin 15, Intact Current %PO Good (75-100%) Estimated Nutritional Goals BEE in Kcals: Using Current wt Calories/Kcals/Kg 25-30 kcal/kg using CBW 57.7kg Kcals Calculated ~4573-3147 kcal/day Protein: Using Current wt Protein g/k-1.2 gm/kg Protein Calculated ~60-70 gm/day Fluid: ml ~7125-7409 ml/day (1 ml/kcal) Nutritional Problem 1. Problem Problem No nutrition diagnosis at this time Intervention/Recommendation Comments Continue pureed cardiac diet as tolerated by patient. Assist with meals as needed. Expected Outcomes/Goals Expected Outcomes/Goals Oral intake >75% ofmeals, weight stable, nutrition related labs WNL, skin intact F/U LR 07/02
[2019-07-13] MEDS: Levothyroxine 0.075 Mg Tab PO SCH (06:50)
--- NOTE | 2019-07-13 08:10 | Discharge Summary ---
DATE OF DISCHARGE: 07/13/2019 DISCHARGE SUMMARY PATIENT'S AGE: 84. SEX: Female. PHYSICIAN: Dr. Blas. FINAL DIAGNOSES: PRIMARY DIAGNOSIS: Unspecified psychosis. SECONDARY DIAGNOSIS: Dementia, moderate to severe, with psychotic features and behavioral disturbances. REASON FOR HOSPITALIZATION: The patient is an 84-year-old female who was transferred to the hospital from [facility] and then to [facility] because of increased agitation and because of bizarre behavior and confusion. HOSPITAL COURSE: The patient continued to be confused. The patient also was disoriented. She also was not able to follow directions. The patient also was having difficulty with mood swings. The patient also was needed lots of redirections. At the same time, the patient was given Aricept in a dose of 10 mg every day and also Risperdal 0.5 mg twice a day. The patient's affect was brighter. The patient was less irritable and less agitated. [facility] accepted the patient and the patient was discharged there. PHYSICAL EXAMINATION: The patient showed no major medical issues while in the hospital and the patient was monitored closely by Dr. Friedman. AFTER DISCHARGE PLANS: The patient discharged from the hospital and went to [facility] with plans for follow her up there. EXPECTED OUTCOME AFTER DISCHARGE: Fair if the patient continues to take her psychotropic medications and follow up with discharge plans. [facility]# [id number]
[2019-07-13] MEDS: risperiDONE 1 mg/mL 30 mL Bottle PO SCH (09:29)
[2019-07-13] MEDS: Lactobacillus Rhamnosus GG 15 Billion CFU CAP.SPRINK PO SCH (09:29)
[2019-07-13] MEDS: Multivitamin Tab PO SCH (09:29)
[2019-07-13] MEDS: Pantoprazole 40 mg EC Tab PO SCH (09:29)
== END 2019-07-13 11:35 | DRG 885 ==
LOC: GERO2 15:00 → GERO 07-05 18:01
PROVIDERS: ADMIT Psychiatry & Neurology Psychiatry; ATTEND Psychiatry & Neurology Psychiatry
DX: F29 Unspecified psychosis not due to a substance or known physiological condition (principal); F03.91 Unspecified dementia, unspecified severity, with behavioral disturbance; I69.951 Hemiplegia and hemiparesis following unspecified cerebrovascular disease affecting right dominant side; I10 Essential (primary) hypertension; E03.9 Hypothyroidism, unspecified; M19.90 Unspecified osteoarthritis, unspecified site; Z87.440 Personal history of urinary (tract) infections
CPT/HCPCS: 36415-UA; 80053-TC; 80061-TC; 83036-90; 85025-TC; G0410; Z7610